=== PATIENT | female | born 1950 | race Caucasian/White ===

== ENCOUNTER 2022-04-21 11:00 | Inpatient (IN) ==
[2022-04-21] MEDS ORDERED: MoRPHine SULFATE 4 MG/ML 1 ML CARP\\VIAL IV STA ×2 (11:31→13:50)
[2022-04-21] MEDS ORDERED: dexAMETHasone**PF** 10 MG/ML VIAL IV ONE (11:31)
--- NOTE | 2022-04-21 13:50 | History & Physical Report ---
Date of Service April 21, 2022 Assessment & Plan (1) Degenerative disc disease: (2) Back pain: Plan: - Admit to med surg - Lumbar spine MRI from 04/21 outpatient records [facility] reviewed: IMPRESSION: 1. New extruded disc centrally at the L2-3 level results in severe thecal sac stenosis, nerve root crowding, and severe bilateral subarticular stenosis. 2. Additional degenerative spondylosis of the mid and lower lumbar spine is similar to the prior study including severe bilateral foraminal narrowing at L5- S1. - She has been set up to see ortho in [place] as outpatient on 04/25, however due to worsening of pain she presented to the ER - Consult ortho spine, Dr. Tamayo - Pain management with tylenol, oxycodone, IV MS for breakthrough pain - bowel regimen with dulcolax and miralax daily while getting narcotic pain medications -Will make n.p.o. at midnight in case of surgical procedure (3) HTN (hypertension): Plan: -May continue losartan 25 mg daily -BP 154/89 at present, likely worse considering her pain level (4) HLD (hyperlipidemia): Plan: -Continue statin (5) Hypothyroid: Plan: -Continue levothyroxine 88 mcg daily, check TSH and Free T4 (6) Stage 3a chronic kidney disease (CKD): Plan: - hx of such, cr/BUN stable, trend with am labs DVT PPx - teds, heparin subcu, hold if plans for surgical procedure tomorrow morning CODE: Full code Dispo: From home, likely to remain in the hospital x 1-2 days History of Present Illness Chief Complaint: Back pain Primary Care Provider: Charlotte Tran MD This is a 72 yo F with PMHx of degnerative disc disease, herniated disc, back pain, HTN, HLD, hypothyroidism, vitamin D deficiency, prediabetes, CKD stage III, and other medical conditions listed below who presents to the ER with worsening back pain. She was scheduled to see outpatient orthopedics in [place] on 04/25 however reports her pain is so severe that she presented to the ER today. She was previously seen in the ER here at [facility] approximately 2 weeks ago where she was given pain medication and was discharged home. She lives at home by herself, and her sister who is present at bedside reports that she has been falling nearly daily. 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 She manages her own medications and did take them today. Most recently she completed a prednisone pack x5 days on Monday and is unsure that it helped with her pain. She has trialed oxycodone and Tylenol but feel t hat they have not relieved her pain either. Currently her pain is rated an 8/10 and is worse with minimal movements. She is able to move her toes and ankles and slightly bend her knees while laying flat in bed. She admits to having severe pain go from her buttocks down the back sides of both of her legs, slightly worse in the right compared to the left. She denies any saddle anesthesia, loss of bowel or bladder dysfunction. Last bowel movement was 2 days ago and reports that she typically goes once within a 7-day and it has been like this for years. Patient had an out patient MRI completed on 04/14 and it was read on 04/17 of the lumbar spine showing L2-3 extruded disc centrally, resulting in severe thecal sac stenosis, nerve root crowding and severe bilateral subarticular stenosis, ad ditionally showing degenerative spondylosis of the mid and lower spine is similar to the previous study with severe bilateral foraminal narrowing of L5- S1. Allergies Allergy/AdvReac Type Severity Reaction Status Date / Time lisinopril Allergy Intermediate Cough Verified 03/08/22 21:43 morphine Allergy Intermediate Rash Verified 03/08/22 21:43 Sulfa (Sulfonamide Allergy Intermediate Nausea Verified 03/08/22 21:43 Antibiotics) Home Medications Medication Instructions Recorded Confirmed Type albuterol sulfate 90 mcg/actuation 2 puff inhalation QID PRN 07/24/18 04/21/22 History aerosol inhaler Shortness Of Breath levothyroxine 88 mcg tablet 88 mcg PO QAM 07/24/18 04/21/22 History trazodone 100 mg tablet 100 mg PO HS PRN Insomnia 11/22/18 04/21/22 History ascorbic acid (vitamin C) 1,000 mg 1,000 mg PO DAILY 04/21/22 04/21/22 History tablet (Vitamin C) aspirin 81 mg tablet,delayed 81 mg PO DAILY 04/21/22 04/21/22 History release (Dyana Low Dose Aspirin) atorvastatin 20 mg tablet 20 mg PO DAILY 04/21/22 04/21/22 History baclofen 20 mg tablet 20 mg PO TID PRN muscle spasms 04/21/22 04/21/22 History cyanocobalamin (vitamin B-12) 500 500 mcg PO DAILY 04/21/22 04/21/22 History mcg tablet (Vitamin B-12) fluoxetine 20 mg capsule 60 mg PO DAILY 04/21/22 04/21/22 History hydroxyzine HCl 25 mg tablet 25 mg PO BID PRN Anxiety 04/21/22 04/21/22 History losartan 25 mg tablet 25 mg PO DAILY 04/21/22 04/21/22 History melatonin 10 mg tablet 10 mg PO DAILY 04/21/22 04/21/22 History solifenacin 5 mg tablet 5 mg PO DAILY 04/21/22 04/21/22 History Past Med/Surg History Medical History Blepharochalasis of both upper eyelids Concussion Degenerative disc disease HLD (hyperlipidemia) HTN (hypertension) Hypothyroid MDD (major depressive disorder) Paroxysmal SVT (supraventricular tachycardia) Prediabetes Stage 3a chronic kidney disease (CKD) Surgical History History of bladder surgery Hx of appendectomy Hx of cholecystectomy Hx of hysterectomy Family History Mother Cancer Diabetes Father Heart disease Brother Diabetes Grandmother (Maternal) Diabetes Grandfather (Maternal) Diabetes Social History Smoking Status: Never smoker Preferred Language: American Communication Ability: Effective Visual Impairment: No Limitations Hearing Ability: Normal Feels Safe at Home: Yes Review of Systems Review of Systems: Constitutional: No fever, sweats or chills Eyes: No diplopia, no worsening or blurred vision ENT: normal hearing, no trouble swallowing Respiratory: No cough, sputum, dyspnea at rest or on exertion Cardiovascular: No chest pain, tightness or palpitations Abdomen: No pain, nausea, vomiting, diarrhea or constipation Musculoskeletal: Back pain as per HPI, otherwise no joint pain, calf pain, swelling Neurologic: + Bilateral leg weakness, + arm bilateral numbness/tingling as per HPI, no bowel or bladder paresthesia, + balance problems, + frequent falls Psychiatric: + Medicated for history of anxiety or depression Skin: No rash or itch Physical Exam Physical Exam: General: awake, alert, no apparent distress, + appears younger than stated age Head: Normocephalic, atraumatic ENT: PERRL, EOMI, no pharyngeal exudate, mucous membranes slightly dry Chest: Clear to auscultation, on room air, no adventitious breath sounds Cardiac: Regular rate and rhythm, no murmur, no JVD, normal peripheral pulses, good capillary refill Abdominal: NABS x 4 quadrants, soft, nondistended, nontender to palpation, no rebound or guarding Extremities: Normal inspection, no peripheral edema or erythema, calfs nontender to palpation Psych: Normal mood and affect Neuro: AAO x 3, strength intact bilaterally and rated 3/5 in lower extremities bilaterally, no motor deficits, speech is clear, no peripheral sensory deficits Results & Data Results & Data ([facility]) Vital Signs (Past 12 Hours) Vital Signs Temp Pulse Pulse Resp BP BP Pulse Ox 04/21/22 11:17 68 18 160/87 H 99 04/21/22 11:05 36.6 C 67 18 149/90 H 99 O2 Del Method 04/21/22 11:17 Room Air 04/21/22 11:05 Room Air Laboratory Results 04/21/22 04/21/22 14:28 12:15 WBC 7.80 RBC 4.43 Hgb 13.5 Hct 40.2 MCV 90.7 MCH 30.5 MCHC 33.6 RDW Std Deviation 43.9 RDW Coeff of Ruel 13.3 Plt Count 222 MPV 8.7 L Immature Gran % (Auto) 0.4 Neut % (Auto) 85.6 Lymph % (Auto) 10.1 [place] % (Auto) 3.1 Eos % (Auto) 0.5 Baso % (Auto) 0.3 Neut # (Auto) 6.68 H Lymph # (Auto) 0.79 L [place] # (Auto) 0.24 Eos # (Auto) 0.04 Baso # (Auto) 0.02 Immature Gran # (Auto) 0.03 H SARS-CoV-2, RNA, NAAT NEGATIVE Code Status & VTE Plan Code Status Full code Supervising Physician Co-Signing Physician Notes Patient is a 72-year-old female with history of degenerative disc disease, hypertension, hypothyroidism and other medical problems presents with worsening lower back pain radiating down bilateral lower extremities since past 4 weeks. Patient has trouble ambulating secondary to the pain. Denies any bowel or bladder incontinence or numbness. Patient admits to be stooping forward significantly to help with the pain. Please review HPI for complete details of presentation. Blood pressure is slightly elevated in ED likely situational secondary to pain. MRI lumbar spine done as outpatient showed new extruded disc centrally at L2-L3 level resulting in severe thecal sac stenosis, nerve root crowding and severe bilateral subarticular stenosis.Blood work reviewed and is within normal limits. On exam patient is moderately built and nourished, no apparent distress, normocephalic atraumatic, EOMI, normal breath sounds, clear to auscultation, S1-S2, no murmur, no pedal edema, abdomen soft, nontender, normal bowel sounds, back:+ Straight leg raising. Alert, awake, oriented, grossly no focal deficits. Patient is admitted for management of sciatica associated with severe disc collapse at L2-L3. Patient received Decadron while in ED. Pain control. Orthopedics consulted. N.p.o. after midnight for possible lumbar decompression fusion surgery. Bowel regimen to prevent constipation. Fall precautions, PT OT when appropriate. I personally reviewed the record. Patient is interviewed and examined at bedside. Patient's care is coordinated with Aisha Hopkins PA-C. Please refer to the documentation above for details of patient's presentation and for discussion of other issues.
[2022-04-21 14:37] LABS: Basophils # (auto) 0.02 K/uL (0-0.2); Basophils % (auto) 0.3 %; Eosinophils # (auto) 0.04 K/uL (0-0.50); Eosinophils % (auto) 0.5 %; Hematocrit (blood only) 40.2 % (34.1-44.9); Hemoglobin 13.5 g/dl (12.0-16.0); Immature Granulocytes # (auto) 0.03 K/uL (0.00-0.02); Immature Granulocytes % (auto) 0.4 %; Lymphocytes # (auto) 0.79 K/uL (1.2-3.4); Lymphocytes % (auto) 10.1 %; Mean Corpuscular Hemoglobin 30.5 pg (25.0-34.0); Mean Corpuscular Hgb Conc 33.6 g/dL (32.0-36.0); Mean Corpuscular Volume 90.7 fL (80.0-100.0); Mean Platelet Volume 8.7 fL (9.4-12.3); Monocytes # (auto) 0.24 K/uL (0.24-0.82); Monocytes % (auto) 3.1 %; Neutrophils # (auto) 6.68 K/uL (1.4-6.5); Neutrophils % (auto) 85.6 %; Platelet Count 222 K/uL (130-400); RDW Coefficient of Variation 13.3 % (11.5-14.5); RDW Standard Deviation 43.9 fL (36.4-46.3); Red Blood Count 4.43 M/uL (3.93-5.22)
--- NOTE | 2022-04-21 14:48 | Emergency Department Note ---
History of Present Illness General Chief complaint: Back Injury/Pain Stated complaint: SEVERE LOWER BACK PAIN Time Seen by Provider: 04/21/22 11:12 History of Present Illness Maximum Pain Intensity: 8 32-year-old female presents to the ED with a chief complaint of low back pain with radiation of the pain into the butt cheeks and down both of her legs. The patient was seen on 04/01/2022 for the same here and had some unremarkable x- rays. She had an MRI at the [facility] facility which showed a significant herniation of the L2-3 level causing severe thecal sac stenosis as well as nerve root crowding and severe bilateral subarticular stenosis. The patient denies any bowel or bladder dysfunction. No weakness in the legs. No abdominal pains. No urinary symptoms. Home Medications Medication Instructions Recorded Confirmed Type albuterol sulfate 90 mcg/actuation 2 puff inhalation QID PRN 07/24/18 04/21/22 History aerosol inhaler Shortness Of Breath levothyroxine 88 mcg tablet 88 mcg PO QAM 07/24/18 04/21/22 History trazodone 100 mg tablet 100 mg PO HS PRN Insomnia 11/22/18 04/21/22 History ascorbic acid (vitamin C) 1,000 mg 1,000 mg PO DAILY 04/21/22 04/21/22 History tablet (Vitamin C) aspirin 81 mg tablet,delayed 81 mg PO DAILY 04/21/22 04/21/22 History release (Dyana Low Dose Aspirin) atorvastatin 20 mg tablet 20 mg PO DAILY 04/21/22 04/21/22 History baclofen 20 mg tablet 20 mg PO TID PRN muscle spasms 04/21/22 04/21/22 History cyanocobalamin (vitamin B-12) 500 500 mcg PO DAILY 04/21/22 04/21/22 History mcg tablet (Vitamin B-12) fluoxetine 20 mg capsule 60 mg PO DAILY 04/21/22 04/21/22 History hydroxyzine HCl 25 mg tablet 25 mg PO BID PRN Anxiety 04/21/22 04/21/22 History losartan 25 mg tablet 25 mg PO DAILY 04/21/22 04/21/22 History melatonin 10 mg tablet 10 mg PO DAILY 04/21/22 04/21/22 History solifenacin 5 mg tablet 5 mg PO DAILY 04/21/22 04/21/22 History Allergies Allergy/AdvReac Type Severity Reaction Status Date / Time lisinopril Allergy Intermediate Cough Verified 03/08/22 21:43 morphine Allergy Intermediate Rash Verified 03/08/22 21:43 Sulfa (Sulfonamide Allergy Intermediate Nausea Verified 03/08/22 21:43 Antibiotics) Past Med/Surg History Medical History Blepharochalasis of both upper eyelids Concussion Degenerative disc disease HLD (hyperlipidemia) HTN (hypertension) Hypothyroid MDD (major depressive disorder) Paroxysmal SVT (supraventricular tachycardia) Prediabetes Stage 3a chronic kidney disease (CKD) Surgical History History of bladder surgery Hx of appendectomy Hx of cholecystectomy Hx of hysterectomy Family History Mother Cancer Diabetes Father Heart disease Brother Diabetes Grandmother (Maternal) Diabetes Grandfather (Maternal) Diabetes Social History Smoking Status: Never smoker Preferred Language: Bengali Communication Ability: Effective Visual Impairment: No Limitations Hearing Ability: Normal Feels Safe at Home: Yes Review of Systems A total of 10 systems reviewed and were otherwise negative Physical Exam Vital Signs Vital Signs - 24 hr 04/21/22 11:05 04/21/22 11:17 04/21/22 14:14 Temperature 36.6 C Temperature Source Temporal Artery Scan Pulse Rate 67 Pulse Rate [Left Finger] 68 63 Pulse Rhythm [Left Finger] Regular Regular Respiratory Rate 18 18 18 Respiratory Effort / Characteristics Non-Labored Non-Labored Respiratory Depth Normal Normal Normal Blood Pressure 149/90 H Blood Pressure [Right Arm] 160/87 H 154/89 H Blood Pressure Mean 109 Blood Pressure Mean [Right Arm] 111 110 Pulse Oximetry 99 99 Oxygen Delivery Method Room Air Room Air Room Air Sepsis Recent Fever Within 48 Hours No Sepsis New/Unexplained Change in Mental Status No Sepsis Action Taken by Nursing No Action Required CONSTITUTIONAL/VITAL SIGNS: Reviewed / noted above. GENERAL: Non-toxic in appearance. INTEGUMENTARY: Warm, dry, and [place]. HEAD: Normocephalic. EYES: without scleral icterus or trauma. ENT/OROPHARYNX: clear and moist. LYMPHADENOPATHY/NECK: Is supple without lymphadenopathy or meningismus. RESPIRATORY: Clear to auscultation bilaterally. No increased work of breathing. CARDIOVASCULAR: Regular rate and rhythm. GI/ABDOMEN: Soft and nontender. No organomegaly or pulsatile mass. EXTREMITIES: Warm and well perfused. Normal lower extremity patellar reflexes. Normal sensation. Positive straight leg raise bilaterally. BACK: No CVA tenderness. NEUROLOGICAL: Intact without focal deficits. PSYCHIATRIC: normal affect. MUSCULOSKELETAL: Normally developed with good muscle tone. TRIAGE NURSING DOCUMENTATION REVIEWED. Course Administered Medications Discontinued Medications Dexamethasone Sodium Phosphate (DexamethasonePf 10 Mg/Ml Vial) 10 mg IV NOW ONE Stop: 04/21/22 11:32 Last Admin: 04/21/22 11:52 Dose: 10 mg Documented By: VAP Morphine Sulfate (Morphine Sulfate 4 Mg/Ml 1 Ml Carp\Vial) 4 mg IV NOW STA Stop: 04/21/22 11:32 Last Admin: 04/21/22 11:52 Dose: 4 mg Documented By: VAP Medical Decision Making Differential Diagnosis Differential considered includes cauda equina syndrome, conus medullaris, spinal cord compression syndrome, peripheral nerve compression, fractures or subluxations, intra-abdominal pathology such as abdominal aortic aneurysm or kidney stones, muscle strain, transverse myelitis, spinal cord injury. Medical Records Attestation: I reviewed the patient's medical records. Home Medications Current Medication List: was personally reviewed by me Laboratory Data Attestation: I reviewed the patient's lab results. Result diagrams: 04/21/22 14:28 04/21/22 14:28 Lab Results 04/21/22 04/21/22 Range/Units 12:15 14:28 WBC 7.80 (4.8-10.8) K/ul RBC 4.43 (3.93-5.22) M/uL Hgb 13.5 (12.0-16.0) g/dl Hct 40.2 (34.1-44.9) % MCV 90.7 (80.0-100.0) fL MCH 30.5 (25.0-34.0) pg MCHC 33.6 (32.0-36.0) g/dL RDW Std Deviation 43.9 (36.4-46.3) fL RDW Coeff of Ruel 13.3 (11.5-14.5) % Plt Count 222 (130-400) K/uL MPV 8.7 L (9.4-12.3) fL Immature Gran % (Auto) 0.4 % Neut % (Auto) 85.6 % Lymph % (Auto) 10.1 % [place] % (Auto) 3.1 % Eos % (Auto) 0.5 % Baso % (Auto) 0.3 % Neut # (Auto) 6.68 H (1.4-6.5) K/uL Lymph # (Auto) 0.79 L (1.2-3.4) K/uL [place] # (Auto) 0.24 (0.24-0.82) K/uL Eos # (Auto) 0.04 (0-0.50) K/uL Baso # (Auto) 0.02 (0-0.2) K/uL Immature Gran # (Auto) 0.03 H (0.00-0.02) K/uL SARS-CoV-2, RNA, NAAT NEGATIVE (NEGATIVE) Imaging Data Radiologist's Impression: MRI of the spine dated 04/17/2022: No extruded disc centrally at the L2-3 level resulting in severe thecal sac stenosis, nerve root crowding, and severe bilateral subarticular stenosis MDM Narrative 72-year-old female with low back pain and a severe extruded central disc in the L2-3 level causing her symptoms. Because of the patient's symptoms she is unable to do activity at home and having severe pain. The patient was treated with morphine x2 in the ED. She was also given IV Decadron. She will be seen by the hospitalist. I did speak with Dr. Tamayo as well about the patient. He will look into the MRI and consult with the patient. Impression & Plan Acute herniated disc, Sciatica associated with disorder of lumbar spine Discharge Plan Visit Data Chief Complaint: Back Injury/Pain Stated Complaint: SEVERE LOWER BACK PAIN ED Provider: Joshua Waller Discharge Problem: Acute herniated disc, Sciatica associated with disorder of lumbar spine Patient Disposition: Being Evaluated by Hospitalist Forms Stand Alone Forms: My [facility] Prescriptions Prescriptions: No Action trazodone 100 mg Tablet 100 mg PO HS PRN (Reason: Insomnia) levothyroxine 88 mcg tablet 88 mcg PO QAM albuterol sulfate [ProAir HFA] 90 mcg/actuation HFA aerosol inhaler 2 puff Inhalation QID PRN (Reason: Shortness Of Breath) ondansetron 4 mg tablet,disintegrating 4 mg PO Q6 PRN (Reason: nausea and vomiting) Qty: 14 0RF ascorbic acid (vitamin C) [Vitamin C] 1,000 mg tablet 1,000 mg PO DAILY atorvastatin 20 mg tablet 20 mg PO DAILY aspirin [Dyana Low Dose Aspirin] 81 mg tablet,delayed release (DR/EC) 81 mg PO DAILY baclofen 20 mg tablet 20 mg PO TID PRN (Reason: muscle spasms) cyanocobalamin (vitamin B-12) [Vitamin B-12] 500 mcg tablet 500 mcg PO DAILY losartan 25 mg tablet 25 mg PO DAILY hydroxyzine HCl 25 mg tablet 25 mg PO BID PRN (Reason: Anxiety) fluoxetine 20 mg capsule 60 mg PO DAILY solifenacin 5 mg tablet 5 mg PO DAILY melatonin 10 mg tablet 10 mg PO DAILY Referrals Referrals: Charlotte Tran MD [Primary Care Provider] -
[2022-04-21 14:57] LABS: Albumin Globulin Ratio 1.1 (0.9-2); Albumin Level 3.4 gm/dl (3.4-5.0); BUN Creatinine Ratio 19.4 (10-20); Bilirubin,Total 0.9 mg/dl (0.2-1.0); Calcium 8.5 mg/dl (8.5-10.1); Creatinine Clr Calc Pharmacy 61.7 ml/min; Est GFR (African American) 95.6 ml/min; Est GFR (Non-African American) 82.5 ml/min; Total Protein 6.4 gm/dl (6.0-8.3)
--- NOTE | 2022-04-21 15:47 | Orthopedic Consultation ---
Date of Consultation April 21, 2022 Assessment & Plan (1) Sciatica associated with disorder of lumbar spine: MRI of the lumbar spine dated 04/14/2022 performed at [facility] is available for review. It demonstrates severe disc base collapse with bilateral neuroforaminal disease L5-S1 there is evidence of a massive disc herniation L2- L3 with both caudal and cephalad migration. There is severe thecal displacement on axillary views at this level. There is facet perjury with subarticular stenosis at the L3-L4 L4-L5 L5-S1 levels as well. Assessment massive discrimination with significant canal compromise L2-L3. Plan at this time the patient is having steady decline in neurologic function and I am recommending urgent lumbar decompression and fusion L2-L3. She will require aggressive facetectomies which will create iatrogenic instability therefore I would recommend if surgical stabilization by way of fusion. Risk benefits pros cons alternatives were outlined in detail. Patient understands agrees. She will remain n.p.o. after midnight and we will plan for surgery tomorrow. History of Present Illness Reason for Consultation: Severe back and bilateral leg pain with weakness Attending Physician: This is a very pleasant 72-year-old female that states she had a marked decline in status approximately 4 weeks ago that has been progressive in nature. She describes pain rating into the buttocks anterior posterior thigh and below the knees. Any activity exacerbates her symptoms. She is unable to walk any distance. When she does so she has to stoop forward significantly. She states that coughing or sneezing shoots pain down both legs. She denies any new changes in bowel or bladder function. She does have some previous urinary issues. She presents emergency room with marked decline in status and inability to ambulate today. She has an MRI that was performed at [facility] on 04/1122. Allergies Allergy/AdvReac Type Severity Reaction Status Date / Time lisinopril Allergy Intermediate Cough Verified 03/08/22 21:43 morphine Allergy Intermediate Rash Verified 03/08/22 21:43 Sulfa (Sulfonamide Allergy Intermediate Nausea Verified 03/08/22 21:43 Antibiotics) Home Medications Medication Instructions Recorded Confirmed Type albuterol sulfate 90 mcg/actuation 2 puff inhalation QID PRN 07/24/18 04/21/22 History aerosol inhaler Shortness Of Breath levothyroxine 88 mcg tablet 88 mcg PO QAM 07/24/18 04/21/22 History trazodone 100 mg tablet 100 mg PO HS PRN Insomnia 11/22/18 04/21/22 History ascorbic acid (vitamin C) 1,000 mg 1,000 mg PO DAILY 04/21/22 04/21/22 History tablet (Vitamin C) aspirin 81 mg tablet,delayed 81 mg PO DAILY 04/21/22 04/21/22 History release (Dyana Low Dose Aspirin) atorvastatin 20 mg tablet 20 mg PO DAILY 04/21/22 04/21/22 History baclofen 20 mg tablet 20 mg PO TID PRN muscle spasms 04/21/22 04/21/22 History cyanocobalamin (vitamin B-12) 500 500 mcg PO DAILY 04/21/22 04/21/22 History mcg tablet (Vitamin B-12) fluoxetine 20 mg capsule 60 mg PO DAILY 04/21/22 04/21/22 History hydroxyzine HCl 25 mg tablet 25 mg PO BID PRN Anxiety 04/21/22 04/21/22 History losartan 25 mg tablet 25 mg PO DAILY 04/21/22 04/21/22 History melatonin 10 mg tablet 10 mg PO DAILY 04/21/22 04/21/22 History solifenacin 5 mg tablet 5 mg PO DAILY 04/21/22 04/21/22 History Patient History Medical History Blepharochalasis of both upper eyelids Concussion Degenerative disc disease HLD (hyperlipidemia) HTN (hypertension) Hypothyroid MDD (major depressive disorder) Paroxysmal SVT (supraventricular tachycardia) Prediabetes Stage 3a chronic kidney disease (CKD) Surgical History History of bladder surgery Hx of appendectomy Hx of cholecystectomy Hx of hysterectomy Family History Mother Cancer Diabetes Father Heart disease Brother Diabetes Grandmother (Maternal) Diabetes Grandfather (Maternal) Diabetes Social History Smoking Status: Never smoker Preferred Language: Malay Communication Ability: Effective Visual Impairment: No Limitations Hearing Ability: Normal Feels Safe at Home: Yes Physical Exam Physical Exam: On exam the patient is supine in bed. Her [id number] is at the bedside. She is alert and oriented. She exhibits 4+/5 bilateral plantar flexion dorsiflexion quadriceps but is in significant distress with any straight leg raising. She is unable to lift her legs off the bed without severe pain. Sensory appears to be symmetric and intact deep tendon reflexes are diminished. Results & Data ([facility]) Vital Signs (Past 12 Hours) Vital Signs Temp Pulse Pulse Resp BP BP Pulse Ox 04/21/22 14:14 63 18 154/89 H 04/21/22 11:17 68 18 160/87 H 99 04/21/22 11:05 36.6 C 67 18 149/90 H 99 O2 Del Method 04/21/22 14:14 Room Air 04/21/22 11:17 Room Air 04/21/22 11:05 Room Air
[2022-04-21] MEDS ORDERED: MoRPHine SULFATE 4 MG/ML 1 ML CARP\\VIAL IV PRN (18:45)
[2022-04-21] MEDS ORDERED: MoRPHine SULFATE 2 MG/ML CARP IV PRN (18:45)
[2022-04-21] MEDS ORDERED: MELATONIN 3 MG TAB PO PRN (19:35)
[2022-04-21] MEDS: VESICARE~ORDER AWAITING ACTION SCH ×2 (19:57→23:03)
[2022-04-21] MEDS ORDERED: ACETAMINOPHEN 500 MG TAB ONE (20:55)
[2022-04-21] MEDS: oxyCODONE HCL IR 5 MG TAB (IMMEDIATE RELEASE) PO PRN (21:23)
[2022-04-21] MEDS: traZODone HCL 100 MG TAB PO PRN (21:23)
[2022-04-21] MEDS: ACETAMINOPHEN 500 MG TAB PO SCH (21:24)
[2022-04-22] MEDS: LEVOTHYROXINE SODIUM 88 MCG TABLET PO SCH (06:05)
[2022-04-22] MEDS: ACETAMINOPHEN 500 MG TAB PO SCH ×3 (06:05→22:37)
[2022-04-22] MEDS ORDERED: NEOSTIGMINE METHYLSULFATE 1 MG/ML 10ML VIAL ONE (07:56)
[2022-04-22] MEDS ORDERED: ROCURONIUM BROMIDE 10 MG/ML 5 ML VIAL IV ONE ×2 (07:56→10:12)
[2022-04-22] MEDS ORDERED: fentaNYL citrate 100 MCG/2 ML VIAL ONE ×2 (07:56→11:06)
[2022-04-22] MEDS ORDERED: MIDAZOLAM HCL 1 MG/ML 2ML VIAL ONE (07:56)
[2022-04-22] MEDS ORDERED: GLYCOPYRROLATE 0.2 MG/ML VIAL ONE (07:56)
[2022-04-22] MEDS ORDERED: LIDOCAINE 2% MPF LOCAL 5 ML VIAL INFIL ONE (07:56)
[2022-04-22] MEDS ORDERED: PROPOFOL IV EMULSION 10 MG/ML 20 ML VIAL IV ONE (07:56)
--- NOTE | 2022-04-22 07:56 | Anesthesiology Consultation ---
Date of Service April 22, 2022 History Surgery Operation Date: 04/22/22 08:00 Proposed Procedures p Decompression Fusion L-2-L-3 - Wale Tamayo, Height/Weight Height: 5 ft Weight: 75.2 kg Allergies Allergy/AdvReac Type Severity Reaction Status Date / Time lisinopril Allergy Intermediate Cough Verified 03/08/22 21:43 morphine Allergy Intermediate Rash Verified 03/08/22 21:43 Sulfa (Sulfonamide Allergy Intermediate Nausea Verified 03/08/22 21:43 Antibiotics) Medications Home Medications Medication Instructions Recorded Confirmed Last Taken albuterol sulfate 90 mcg/actuation 2 puff inhalation QID PRN 07/24/18 04/21/22 07/24/18 aerosol inhaler Shortness Of Breath levothyroxine 88 mcg tablet 88 mcg PO QAM 07/24/18 04/21/22 04/21/22 trazodone 100 mg tablet 100 mg PO HS PRN Insomnia 11/22/18 04/21/22 04/20/22 ascorbic acid (vitamin C) 1,000 mg 1,000 mg PO DAILY 04/21/22 04/21/22 04/21/22 tablet (Vitamin C) aspirin 81 mg tablet,delayed 81 mg PO DAILY 04/21/22 04/21/22 04/21/22 release (Dyana Low Dose Aspirin) atorvastatin 20 mg tablet 20 mg PO DAILY 04/21/22 04/21/22 04/21/22 baclofen 20 mg tablet 20 mg PO TID PRN muscle spasms 04/21/22 04/21/22 04/21/22 cyanocobalamin (vitamin B-12) 500 500 mcg PO DAILY 04/21/22 04/21/22 04/21/22 mcg tablet (Vitamin B-12) fluoxetine 20 mg capsule 60 mg PO DAILY 04/21/22 04/21/22 04/21/22 hydroxyzine HCl 25 mg tablet 25 mg PO BID PRN Anxiety 04/21/22 04/21/22 04/20/22 losartan 25 mg tablet 25 mg PO DAILY 04/21/22 04/21/22 04/21/22 melatonin 10 mg tablet 10 mg PO DAILY 04/21/22 04/21/22 04/20/22 solifenacin 5 mg tablet 5 mg PO DAILY 04/21/22 04/21/22 04/21/22 Active Medications Generic Name Dose Route Start Last Admin Trade Name Freq PRN Reason Stop Dose Admin Acetaminophen 1,000 mg 04/21/22 22:00 04/22/22 06:05 Acetaminophen 500 Mg Tab PO 05/21/22 21:59 1,000 mg Q8H SALO Administration Levothyroxine Sodium 88 mcg 04/22/22 06:30 04/22/22 06:05 Levothyroxine Sodium 88 Mcg Tablet PO 05/22/22 06:29 88 mcg DAILYBB SALO Administration Miscellaneous 1 each 04/21/22 19:45 04/21/22 23:03 Vesicare~Order Awaiting Action N/A 05/21/22 19:44 Not Given QS SALO Morphine Sulfate 2 mg 04/21/22 18:45 04/21/22 19:49 Morphine Sulfate 2 Mg/Ml Carp IV 05/05/22 18:44 2 mg Q4H PRN Administration Breakthrough Pain Morphine Sulfate 4 mg 04/21/22 18:45 04/22/22 04:41 Morphine Sulfate 4 Mg/Ml 1 Ml Carp\Vial IV 05/05/22 18:44 4 mg Q4H PRN Administration Severe Pain Oxycodone HCl 5 mg 04/21/22 18:45 04/21/22 21:23 Oxycodone Hcl Ir 5 Mg Tab (Immediate Release) PO 05/05/22 18:44 5 mg Q6H PRN Administration Pain Trazodone HCl 100 mg 04/21/22 18:45 04/21/22 21:23 Trazodone Hcl 100 Mg Tab PO 05/21/22 18:44 100 mg HS PRN Administration Insomnia Past Medical History Medical History Blepharochalasis of both upper eyelids Concussion Degenerative disc disease HLD (hyperlipidemia) HTN (hypertension) Hypothyroid MDD (major depressive disorder) Paroxysmal SVT (supraventricular tachycardia) Prediabetes Stage 3a chronic kidney disease (CKD) Exercise / Class Metabolic Activity II 4-5 Yardwork/Stairs/Walk up hill Past Family History Family History Mother Cancer Diabetes Father Heart disease Brother Diabetes Grandmother (Maternal) Diabetes Grandfather (Maternal) Diabetes Past Surgical History Surgical History History of bladder surgery Hx of appendectomy Hx of cholecystectomy Hx of hysterectomy Past Anesthesia History No Hx of Anesthesia Complications and No Family Hx of Anesthesia Complications History of PONV No Hx of PONV and No Hx of Motion Sickness Social History Smoking Status: Never smoker Hx Alcohol Use: No Hx Substance Use: No Physical Exam Vital Signs Last Vital Signs Temp 36.7 C 04/22/22 07:19 Pulse 58 L 04/22/22 07:19 Resp 16 04/22/22 07:19 BP 117/66 04/22/22 07:19 Pulse Ox 91 04/22/22 07:19 O2 Del Method 04/22/22 07:19 Testing Laboratory Results 04/21/22 14:28 04/21/22 14:28
[2022-04-22] MEDS: VESICARE~ORDER AWAITING ACTION SCH ×2 (08:01→20:10)
[2022-04-22] MEDS ORDERED: ceFAZolin 330 MG/ML 1 GM VIAL ONE ×2 (08:09→10:51)
[2022-04-22] MEDS ORDERED: BUPIVACAINE/EPINEPHRINE 0.25% 1:200,000 30 ML VIAL ONE (08:09)
--- NOTE | 2022-04-22 08:11 | History & Physical Bridge Note ---
Date of Service April 22, 2022 History & Physical Bridge Note I have examined the patient, reviewed the History & Physical and in the interval since the performance of the History & Physical I have noted the following changes of clinical significance: no changes noted Urgent lumbar decompression fusion L2-L3
[2022-04-22 08:25] LABS: Hematocrit (blood only) 40.1 % (34.1-44.9); Hemoglobin 13.4 g/dl (12.0-16.0); Mean Corpuscular Hemoglobin 30.1 pg (25.0-34.0); Mean Corpuscular Hgb Conc 33.4 g/dL (32.0-36.0); Mean Corpuscular Volume 90.1 fL (80.0-100.0); Mean Platelet Volume 8.9 fL (9.4-12.3); Platelet Count 234 K/uL (130-400); RDW Standard Deviation 42.6 fL (36.4-46.3); Red Blood Count 4.45 M/uL (3.93-5.22); White Blood Count 8.36 K/ul (4.8-10.8)
[2022-04-22 08:51] LABS: BUN Creatinine Ratio 27.3 (10-20); Calcium 8.6 mg/dl (8.5-10.1); Creatinine Clr Calc Pharmacy 67.7 ml/min; Est GFR (African American) 100.9 ml/min; Magnesium 1.9 mg/dl (1.7-2.4); Potassium 4.2 mmol/L (3.5-5.1)
[2022-04-22] MEDS ORDERED: ceFAZolin 1000MG 1,000 MG/7.5 ML SYR IV ONE (09:28)
[2022-04-22] MEDS ORDERED: FLOSEAL HEMOSTATIC MATRIX 10ML TOP ONE (09:40)
[2022-04-22] MEDS ORDERED: PHENYLEPHRINE HCL 10 MG/ML VIAL ONE (10:08)
[2022-04-22] MEDS ORDERED: ePHEDrine sulfate 50 MG/ML AMP ONE (10:08)
[2022-04-22] MEDS ORDERED: SODIUM CHLORIDE 0.9% INJ 10 ML VIAL ONE (10:08)
--- NOTE | 2022-04-22 10:25 | Operative Report ---
Post Operative Report Pre & Post Diagnosis Operation Date: 04/22/22 08:00 Pre-Op Diagnosis: Number discoloration with severe spinal stenosis Post-Op Diagnosis: Same I identified the patient and participated in the time-out.: Yes Procedure Operation Date: 04/22/22 08:00 Actual Procedures #1 lumbar decompression with bilateral medial facetectomies and foraminotomies L2-L3. #2 posterior spinal fusion L2-L3. #3 placed posterior instrumentation L2-3. #4 interbody fusion L2-L3. #5 placement of Spira 13 x 26 mm cage at L2- L3. #6 placement locally harvested morselized autograft in the posterior gutters. #7 placement of I factor V V toss in the interbody space and posterior lateral gutters. Surgeon Wale Tamayo, [employer] And [employer]ing Worker Onofre Diaz Estimated Blood Loss 75 Findings Consistent with Post-Op Diagnosis Specimens None Indications This is a 72-year-old female who presents with severe neurologic decline and inability to ambulate secondary to massive disc herniation with severe canal stenosis at L to L3. Subsequently she is here for urgent decompression fusion. Description of Procedure Patient was met with identified informed consent obtained. Patient was then taken to the operative suite underwent an patient placed in a prone position the [place] table top Gall[place] frame. All bony prominences well-padded eyes inspected to ensure no external pressure placed upon them. This point the lumbar spine was prepped and draped in a sterile fashion. Sharp dissection with the assistance of Bovie cartilage from down to and exposing the lamina and transverse processes of L2-L3 bilaterally. From caudal to cephalad fashion complete laminectomy of L2 was performed including bilateral medial facetectomies and foraminotomies to adequately expose the canal and allow me to retrieve the massive free fragments of disc material that migrated cephalad and caudally in the canal. After complete decompression pedicle screws were placed in L2-L3 bilaterally with assistance of fluoroscopy and the proper sized brandon placed. By way of a transfemoral approach and left complete discectomy was performed endplates curetted to subcortically bone and a 13 x 26 mm spiral cage filled with I factor tapped in position. The rods were then compressed locked into final position bilaterally. The transverse processes of L2-L3 burred to subcortical bleeding bone. I factor combined with V toss and locally harvested morselized autograft was placed in the posterior gutters. 15 round HARJIT drain inserted. The incision was then closed with 1 Vicryl in the fascia 2-0 Vicryl subcutaneously and 4 Monocryl for final skin closure. Steri-Strip sterile dressings placed. Patient will continue PACU stable condition. Please note spinal cord monitoring was utilized at the procedure no changes noted. Lastly Onofre Diaz was present at the entire surgery involved the patient pos itioning complex portions of the surgery and final skin closure. I attest to the content of the Intraoperative Record and any orders documented therein. Any exceptions are noted below.
--- NOTE | 2022-04-22 10:56 | Fluoroscopy Report ---
FL lumbar spine 2-3V CLINICAL HISTORY: L2-3 DFI TECHNIQUE: 2 views were obtained with the C-arm in the OR with the above procedure. Total fluoroscopy time was 19.5 seconds. Total skin dose was 15.74 mGy. Comparison: None available at the time of this dictation. FINDINGS/IMPRESSION: Intraoperative images were obtained of L2-L3 decompression and fusion. Please correlate with intraoperative fluoroscopy and operative report. ACT 112: Negative or not required by law. Electronically signed by: Brandon Serrano M.D. 04/22/2022 10:55 AM
[2022-04-22] MEDS ORDERED: ONDANSETRON INJ 2 MG/ML 2 ML VIAL IV PRN ×2 (11:03→11:48)
[2022-04-22] MEDS ORDERED: ATROPINE SULFATE 0.1 MG/ML 10ML SYR IV PRN ×5 (11:03→14:57)
[2022-04-22] MEDS ORDERED: ePHEDrine sulfate 50 MG/ML AMP IV PRN ×4 (11:03→14:57)
[2022-04-22] MEDS: fentaNYL citrate 100 MCG/2 ML VIAL IV PRN ×2 (11:07→11:12)
[2022-04-22] MEDS ORDERED: HYDROmorphone INJ 2 MG/ML SYR/VIAL ONE (11:21)
[2022-04-22] MEDS: HYDROmorphone INJ 2 MG/ML SYR/VIAL IV PRN ×10 (11:21→12:39)
[2022-04-22] MEDS ORDERED: HYDROmorphone INJ 1 MG/ML SYRINGE ONE (11:46)
[2022-04-22] MEDS ORDERED: MAGNESIUM SULFATE / D5W 1 GM/100 ML BAG IV ONE (11:48)
[2022-04-22] MEDS ORDERED: DEXAMETHASONE SOD INJ 4 MG/ML VIAL IV PRN (11:48)
[2022-04-22] MEDS ORDERED: CLONIDINE HCL 1000 MCG/10 ML IV ONE (11:55)
[2022-04-22] MEDS ORDERED: HYDROmorphone INJ 2 MG/ML SYR/VIAL IV PRN ×2 (12:16→13:23)
[2022-04-22] MEDS ORDERED: CLONIDINE HCL IV ONE (12:45)
--- NOTE | 2022-04-22 13:29 | Anesthesiology Progress Note ---
Date of Service April 22, 2022 Anesthesia Post Procedure Vital Signs Vital Signs: Temp Pulse Pulse Pulse Resp BP BP 04/22/22 13:25 59 L 14 89/49 L 04/22/22 13:15 62 16 105/56 L 04/22/22 13:05 59 L 18 97/59 L 04/22/22 12:55 67 19 109/63 04/22/22 12:45 65 20 107/65 04/22/22 12:35 61 15 100/51 L 04/22/22 12:25 65 18 95/72 L 04/22/22 12:15 70 17 92/58 L 04/22/22 12:05 69 14 101/62 04/22/22 11:55 64 16 106/74 04/22/22 11:45 67 13 121/64 04/22/22 11:35 73 12 120/85 04/22/22 11:25 73 12 119/61 04/22/22 11:15 74 14 111/54 L 04/22/22 10:55 85 17 120/58 L 04/22/22 11:05 82 14 134/63 04/22/22 10:46 36.2 C L 93 H 12 137/59 L 04/22/22 08:08 37.1 C 62 20 04/22/22 07:19 36.7 C 58 L 16 117/66 04/21/22 23:04 36.3 C L 63 16 04/21/22 18:49 36.5 C 62 17 04/21/22 17:54 63 18 141/86 H 04/21/22 17:49 63 18 04/21/22 16:10 60 18 04/21/22 14:14 63 18 BP Pulse Ox O2 Del Method O2 Flow Rate 04/22/22 13:25 93 Nasal Cannula 2 04/22/22 13:15 97 Nasal Cannula 2 04/22/22 13:05 97 Nasal Cannula 2 04/22/22 12:55 98 Nasal Cannula 2 04/22/22 12:45 98 Nasal Cannula 2 04/22/22 12:35 99 Nasal Cannula 2 04/22/22 12:25 99 Nasal Cannula 2 04/22/22 12:15 100 Nasal Cannula 2 04/22/22 12:05 99 Nasal Cannula 2 04/22/22 11:55 99 Nasal Cannula 2 04/22/22 11:45 99 Nasal Cannula 2 04/22/22 11:35 97 Nasal Cannula 2 04/22/22 11:25 97 Nasal Cannula 2 04/22/22 11:15 93 Room Air 04/22/22 10:55 99 Oxymask 6 04/22/22 11:05 97 Oxymask 6 04/22/22 10:46 98 Oxymask 6 04/22/22 08:08 121/71 96 Room Air 04/22/22 07:19 91 Room Air 04/21/22 23:04 99/62 L 93 Room Air 04/21/22 18:49 167/90 H 97 Room Air 04/21/22 17:54 94 Room Air 04/21/22 17:49 141/86 H 94 Room Air 04/21/22 16:10 160/80 H Room Air 04/21/22 14:14 154/89 H Room Air Pain Intensity Right Buttock: Pain Intensity: 4 Back: Pain Intensity: 7 Transfer of Care Handoff Completed per policy Notes Mental Status: alert / awake / arousable and participated in evaluation Patient Amnestic to Procedure: Yes Nausea / Vomiting: adequately controlled Pain: adequately controlled Airway Patency, RR, SpO2: stable & adequate BP & HR: stable & adequate Hydration State: stable & adequate Anesthetic Complications: no major complications apparent and Pt Satisfied with anesthetic care Notes: Pt has required significant opioids along with clonidine and magnesium Pain somewhat improved pain now 6-7/10 but appears more comfortable. Will send to floor for IV and/or POs
[2022-04-22] MEDS: ePHEDrine sulfate 50 MG/ML AMP IV PRN ×4 (14:23→14:50)
[2022-04-22] MEDS ORDERED: PHENYLEPHRINE 100MCG/ML 5ML SYR ONE (15:02)
[2022-04-22] MEDS: PHENYLEPHRINE 100MCG/ML 5ML SYR IV PRN ×3 (15:02→16:15)
[2022-04-22] MEDS: ALBUMIN 25% 12.5 GM/50 ML VIAL IV SCH ×2 (15:43→15:54)
--- NOTE | 2022-04-22 16:34 | Hospitalist Progress Note ---
Date of Service April 22, 2022 Assessment & Plan (1) Degenerative disc disease: (2) Back pain: Plan: This is a 72 yo F with PMHx of degnerative disc disease, herniated disc, back pain, HTN, HLD, hypothyroidism, vitamin D deficiency, prediabetes, CKD stage III, and other medical conditions listed below who presents to the ER with worsening back pain. POD#0 s/p lumbar decompression with bilateral medial facetectomies and foraminotomies L2-L3, posterior spinal fusion L2-L3. #3 placed posterior instrumentation L2-3 and interbody fusion L2-L3 In PACU postoperatively for management of hypotension, pain Per ortho for pain control, wound care, anticoagulation and activities Monitor H&H (EBL 75ml, hgb 13.4, continue incentive spirometry, PT/OT when appropriate) (3) Hypotension: Plan: Lumbar discShe is a status post patient and fusion L2-L3 She received total of 5.5 mg of Dilaudid and 100 mcg of IV clonidine per operatively Blood pressure was noted to be around systolic 80s following the procedure in PACU She received a total of 4 L of normal saline with improvement of blood pressure to around 100 She was saturating normally on room air but with the activity and movement the saturation was going down She will continue to have normal saline at a rate of 100 cc an hour and monitor for fluid overload She will need to be transferred to PCU for close monitoring at least for tonight (4) HTN (hypertension): Plan: Hypotensive post-operatively. Hold losartan for now (5) HLD (hyperlipidemia): Plan: Continue statin (6) Hypothyroid: Plan: Continue levothyroxine (7) Stage 3a chronic kidney disease (CKD): Plan: Stable. Continue to monitor with daily BMP CODE: Full code Dispo: Per primary service Patient seen in collaboration with Dr. Avelar. Admission and Anticipated Discharge Date Admission Date: April 21, 2022 Subjective 04/22/2022 The patient was seen and examined in PACU She is a status post L2-3 decompression and fusion and noted to have significant hypotension following the surgery She remained mentally clear and denies any symptoms except weakness BP improving after IV fluids. Has received almost 4 L. Most recent BP in PACU 123/58 Patient is comfortable with minimal surgical site pain. Denies any fever, chills, headache, chest pain, shortness of breath, nausea, vomiting, abdominal pain, dysuria, diarrhea constipation. Review of Systems Review of Systems: At least ten systems reviewed and negative except as noted in the HPI. Physical Exam Physical Exam: Lying in bed comfortably Constitutional: + ill appearing and average body habitus Eyes: PERRL, conjunctivae normal, anicteric sclerae ENMT: external ear and nose normal, oropharynx normal Neck: trachea midline, no thyromegaly Respiratory: no respiratory distress Auscultation: lungs clear to auscultation bilaterally; no crackles Cardiovascular: Rate/Rhythm: regular rate and regular rhythm; not tachycardic Heart Sounds: normal S1 and normal S2; no murmur Gastrointestinal (Abdomen): Inspection/Auscultation: normal bowel sounds; abdomen not distended Percussion/Palpation: abdomen soft; abdomen nontender Musculoskeletal: No acute arthritis in any joint Neurologic: Alert, awake and oriented x3. Generally weak and lethargic Results & Data Results & Data ([facility]) Vital Signs (Past 12 Hours) Vital Signs Temp Pulse Pulse Resp BP BP Pulse Ox 04/22/22 16:25 74 14 96/50 L 95 04/22/22 16:15 71 14 89/49 L 94 04/22/22 16:05 71 14 89/46 L 94 04/22/22 15:55 37.2 C 70 14 80/44 L 92 04/22/22 15:45 69 14 85/47 L 92 04/22/22 15:35 68 14 83/46 L 93 04/22/22 15:25 72 15 87/49 L 92 04/22/22 15:20 70 15 104/57 L 92 04/22/22 15:15 68 12 88/47 L 95 04/22/22 15:05 72 13 90/48 L 93 04/22/22 14:55 71 16 96/49 L 98 04/22/22 14:45 72 18 91/48 L 95 04/22/22 14:40 68 15 87/45 L 92 04/22/22 14:20 79/47 L 04/22/22 14:35 69 12 83/45 L 95 04/22/22 14:30 71 15 91/47 L 97 04/22/22 14:25 37.2 C 67 21 87/47 L 94 04/22/22 14:15 65 16 81/44 L 92 04/22/22 14:05 65 13 82/45 L 98 04/22/22 13:55 64 16 92/47 L 95 04/22/22 13:45 65 17 90/45 L 94 04/22/22 13:35 61 15 84/43 L 92 04/22/22 13:25 59 L 14 89/49 L 93 04/22/22 13:15 62 16 105/56 L 97 04/22/22 13:05 59 L 18 97/59 L 97 04/22/22 12:55 67 19 109/63 98 04/22/22 12:45 65 20 107/65 98 04/22/22 12:35 61 15 100/51 L 99 04/22/22 12:25 65 18 95/72 L 99 04/22/22 12:15 70 17 92/58 L 100 04/22/22 12:05 69 14 101/62 99 04/22/22 11:55 64 16 106/74 99 04/22/22 11:45 67 13 121/64 99 04/22/22 11:35 73 12 120/85 97 04/22/22 11:25 73 12 119/61 97 04/22/22 11:15 74 14 111/54 L 93 04/22/22 10:55 85 17 120/58 L 99 04/22/22 11:05 82 14 134/63 97 04/22/22 10:46 36.2 C L 93 H 12 137/59 L 98 04/22/22 08:08 37.1 C 62 20 121/71 96 04/22/22 07:19 36.7 C 58 L 16 117/66 91 O2 Del Method O2 Flow Rate 04/22/22 16:25 Nasal Cannula 4 04/22/22 16:15 Nasal Cannula 4 04/22/22 16:05 Nasal Cannula 4 04/22/22 15:55 Nasal Cannula 4 04/22/22 15:45 Nasal Cannula 4 04/22/22 15:35 Nasal Cannula 4 04/22/22 15:25 Nasal Cannula 4 04/22/22 15:20 Nasal Cannula 4 04/22/22 15:15 Nasal Cannula 4 04/22/22 15:05 Nasal Cannula 4 04/22/22 14:55 Nasal Cannula 4 04/22/22 14:45 Nasal Cannula 4 04/22/22 14:40 Nasal Cannula 4 04/22/22 14:20 04/22/22 14:35 Nasal Cannula 4 04/22/22 14:30 Nasal Cannula 4 04/22/22 14:25 Nasal Cannula 4 04/22/22 14:15 Nasal Cannula 4 04/22/22 14:05 Nasal Cannula 4 04/22/22 13:55 Nasal Cannula 2 04/22/22 13:45 Nasal Cannula 2 04/22/22 13:35 Nasal Cannula 2 04/22/22 13:25 Nasal Cannula 2 04/22/22 13:15 Nasal Cannula 2 04/22/22 13:05 Nasal Cannula 2 04/22/22 12:55 Nasal Cannula 2 04/22/22 12:45 Nasal Cannula 2 04/22/22 12:35 Nasal Cannula 2 04/22/22 12:25 Nasal Cannula 2 04/22/22 12:15 Nasal Cannula 2 04/22/22 12:05 Nasal Cannula 2 04/22/22 11:55 Nasal Cannula 2 04/22/22 11:45 Nasal Cannula 2 04/22/22 11:35 Nasal Cannula 2 04/22/22 11:25 Nasal Cannula 2 04/22/22 11:15 Room Air 04/22/22 10:55 Oxymask 6 04/22/22 11:05 Oxymask 6 04/22/22 10:46 Oxymask 6 04/22/22 08:08 Room Air 04/22/22 07:19 Room Air Laboratory Results Short CBC 04/22/22 Range/Units 07:54 WBC 8.36 (4.8-10.8) K/ul Hgb 13.4 (12.0-16.0) g/dl Hct 40.1 (34.1-44.9) % Plt Count 234 (130-400) K/uL BMP 04/22/22 07:54 Sodium 136 Potassium 4.2 Chloride 104 Carbon Dioxide 27 BUN 18 Creatinine 0.66 Glucose 136 H Calcium 8.6 Diagnostic Findings Lumbar Spine X-Ray 04/22/22 00:00 FL lumbar spine 2-3V CLINICAL HISTORY: L2-3 DFI TECHNIQUE: 2 views were obtained with the C-arm in the OR with the above procedure. Total fluoroscopy time was 19.5 seconds. Total skin dose was 15.74 mGy. Comparison: None available at the time of this dictation. FINDINGS/IMPRESSION: Intraoperative images were obtained of L2-L3 decompression and fusion. Please correlate with intraoperative fluoroscopy and operative report. ACT 112: Negative or not required by law. Electronically signed by: Brandon Serrano M.D. 04/22/2022 10:55 AM Medications Administered Current Inpatient Medications Acetaminophen (Acetaminophen 500 Mg Tab) 1,000 mg PO Q8H SALO Stop: 05/21/22 21:59 Last Admin: 04/22/22 06:05 Dose: 1,000 mg Aspirin (Aspirin 81 Mg Ectab) 81 mg PO DAILY SALO Stop: 05/22/22 08:59 Atorvastatin Calcium (Atorvastatin 20 Mg Tab) 20 mg PO DAILY SALO Stop: 05/22/22 08:59 Atropine Sulfate (Atropine Sulfate 0.1 Mg/Ml 10ml Syr) 0.5 mg IV Q1M PRN PRN Reason: PACU Use-HR<40 &/or Bradycardi Stop: 04/22/22 20:16 Atropine Sulfate (Atropine Sulfate 0.1 Mg/Ml 10ml Syr) 0.5 mg IV Q1M PRN PRN Reason: PACU Use-HR<40 &/or Bradycardi Stop: 04/22/22 21:23 Atropine Sulfate (Atropine Sulfate 0.1 Mg/Ml 10ml Syr) 0.5 mg IV Q1M PRN PRN Reason: PACU Use-HR<40 &/or Bradycardi Stop: 04/22/22 22:57 Baclofen (Baclofen 20 Mg Tab) 20 mg PO TID PRN PRN Reason: muscle spasms Stop: 05/21/22 18:44 Bisacodyl (Bisacodyl 5 Mg Tabec) 10 mg PO DAILY SALO Stop: 05/22/22 08:59 Dexamethasone (Dexamethasone Sod Inj 4 Mg/Ml Vial) 4 mg IV ONCE PRN PRN Reason: PACU Use Only-Nausea/Vomiting Stop: 04/22/22 19:49 Ephedrine Sulfate (Ephedrine Sulfate 50 Mg/Ml Amp) 5 mg IV Q5M PRN PRN Reason: PACU Use Only-SBP<90 mmHg Stop: 04/22/22 20:16 Last Admin: 04/22/22 14:50 Dose: 5 mg Ephedrine Sulfate (Ephedrine Sulfate 50 Mg/Ml Amp) 5 mg IV Q5M PRN PRN Reason: PACU Use Only-SBP<90 mmHg Stop: 04/22/22 21:23 Ephedrine Sulfate (Ephedrine Sulfate 50 Mg/Ml Amp) 5 mg IV Q5M PRN PRN Reason: PACU Use Only-SBP<90 mmHg Stop: 04/22/22 22:57 Fentanyl Citrate (Fentanyl Citrate 100 Mcg/2 Ml Vial) 50 mcg IV Q5M PRN PRN Reason: PACU Use Only-Pain Stop: 04/22/22 19:03 Last Admin: 04/22/22 11:12 Dose: 50 mcg Fluoxetine HCl (Fluoxetine Hcl 20 Mg Cap) 60 mg PO DAILY [facility] Stop: 05/22/22 08:59 Hydromorphone HCl (Hydromorphone Inj 2 Mg/Ml Syr/Vial) 0.5 mg IV Q5M PRN PRN Reason: PACU Use Only-Pain Stop: 04/22/22 20:17 Hydromorphone HCl (Hydromorphone Inj 2 Mg/Ml Syr/Vial) 0.5 mg IV Q5M PRN PRN Reason: PACU Use Only-Pain Stop: 04/22/22 21:25 Last Admin: 04/22/22 13:21 Dose: 0.5 mg Hydroxyzine HCl (Hydroxyzine Hcl 25 Mg Tab) 25 mg PO BID PRN PRN Reason: Anxiety Stop: 05/21/22 18:44 Albumin Human (Albumin 25%) 12.5 gm in 50 mls @ 50 mls/hr IV Q1H SALO Stop: 04/22/22 17:44 Last Admin: 04/22/22 15:54 Dose: 50 mls/hr Levothyroxine Sodium (Levothyroxine Sodium 88 Mcg Tablet) 88 mcg PO DAILYBB SALO Stop: 05/22/22 06:29 Last Admin: 04/22/22 06:05 Dose: 88 mcg Losartan Potassium (Losartan Potassium 25 Mg Tab) 25 mg PO DAILY SALO Stop: 05/22/22 08:59 Melatonin (Melatonin 3 Mg Tab) 9 mg PO HSZ PRN PRN Reason: Sleep Stop: 05/21/22 19:34 Miscellaneous (Vesicare~Order Awaiting Action) 1 each N/A QS SALO Stop: 05/21/22 19:44 Last Admin: 04/22/22 08:01 Dose: Not Given Morphine Sulfate (Morphine Sulfate 2 Mg/Ml Carp) 2 mg IV Q4H PRN PRN Reason: Breakthrough Pain Stop: 05/05/22 18:44 Last Admin: 04/21/22 19:49 Dose: 2 mg Morphine Sulfate (Morphine Sulfate 4 Mg/Ml 1 Ml Carp\Vial) 4 mg IV Q4H PRN PRN Reason: Severe Pain Stop: 05/05/22 18:44 Last Admin: 04/22/22 04:41 Dose: 4 mg Ondansetron HCl (Ondansetron Inj 2 Mg/Ml 2 Ml Vial) 4 mg IV ONCE PRN PRN Reason: PACU Use Only-Nausea/Vomiting Stop: 04/22/22 19:49 Oxycodone HCl (Oxycodone Hcl Ir 5 Mg Tab (Immediate Release)) 5 mg PO Q6H PRN PRN Reason: Pain Stop: 05/05/22 18:44 Last Admin: 04/21/22 21:23 Dose: 5 mg Phenylephrine HCl (Phenylephrine 100mcg/Ml 5ml Syr) 100 mcg IV Q5M PRN PRN Reason: PACU Use Only-SBP<90 or HR>70 Stop: 04/22/22 22:58 Last Admin: 04/22/22 16:15 Dose: 100 mcg Polyethylene Glycol (Polyethylene (Miralax) 17 Gm Pack) 17 gm PO DAILY SALO Stop: 05/22/22 08:59 Trazodone HCl (Trazodone Hcl 100 Mg Tab) 100 mg PO HS PRN PRN Reason: Insomnia Stop: 05/21/22 18:44 Last Admin: 04/21/22 21:23 Dose: 100 mg
[2022-04-22 16:54] LABS: Hematocrit (blood only) 30.9 % (34.1-44.9); Hemoglobin 10.2 g/dl (12.0-16.0)
[2022-04-22] MEDS ORDERED: SODIUM CHLORIDE 0.9% 1000ML 1,000 ML IV SCH (19:52)
[2022-04-22] MEDS: FLUoxetine HCL 20 MG CAP PO SCH (20:06)
[2022-04-22] MEDS: ATORVASTATIN 20 MG TAB PO SCH (20:06)
[2022-04-22] MEDS: bisacodyL 5 MG TABEC PO SCH (20:06)
[2022-04-22] MEDS: ASPIRIN 81 MG ECTAB PO SCH (20:06)
[2022-04-22] MEDS: POLYETHYLENE (MIRALAX) 17 GM PACK PO SCH (20:07)
[2022-04-22] MEDS: LOSARTAN POTASSIUM 25 MG TAB PO SCH (20:07)
[2022-04-22] MEDS: oxyCODONE HCL IR 5 MG TAB (IMMEDIATE RELEASE) PO PRN (22:37)
[2022-04-22] MEDS: traZODone HCL 100 MG TAB PO PRN (22:38)
[2022-04-22] MEDS: BACLOFEN 20 MG TAB PO PRN (22:38)
[2022-04-23] MEDS: oxyCODONE HCL IR 5 MG TAB (IMMEDIATE RELEASE) PO PRN ×3 (05:54→21:44)
[2022-04-23] MEDS: ACETAMINOPHEN 500 MG TAB PO SCH ×3 (05:55→21:45)
[2022-04-23] MEDS: LEVOTHYROXINE SODIUM 88 MCG TABLET PO SCH (05:56)
[2022-04-23 06:15] LABS: Hemoglobin 10.6 g/dl (12.0-16.0); Mean Corpuscular Hemoglobin 30.4 pg (25.0-34.0); Mean Corpuscular Hgb Conc 32.1 g/dL (32.0-36.0); Mean Corpuscular Volume 94.6 fL (80.0-100.0); Mean Platelet Volume 9.1 fL (9.4-12.3); Platelet Count 198 K/uL (130-400); RDW Coefficient of Variation 13.6 % (11.5-14.5); Red Blood Count 3.49 M/uL (3.93-5.22); White Blood Count 13.27 K/ul (4.8-10.8)
[2022-04-23 06:38] LABS: Calcium 7.8 mg/dl (8.5-10.1); Creatinine Clr Calc Pharmacy 74.5 ml/min; Est GFR (African American) 104.1 ml/min; Est GFR (Non-African American) 89.8 ml/min; Potassium 4.6 mmol/L (3.5-5.1)
--- NOTE | 2022-04-23 08:10 | Orthopedic Progress Note ---
Date of Service April 23, 2022 Assessment & Plan (1) Acute herniated disc: Plan: At this time I encouraged her to begin physical therapy today will monitor HARJIT output hopefully be able discontinue her Oliveros today if she is tolerating physical therapy and plan for discharge home in the next few days. Admission and Anticipated Discharge Date Admission Date: April 21, 2022 Subjective Back pain is controlled leg numbness and pain markedly improved Physical Exam Physical Exam: Patient is comfortable in bed. Is good strength testing. Sensory is intact. Results & Data ([facility]) Vital Signs (Past 12 Hours) Vital Signs Temp Pulse Pulse Resp BP Pulse Ox O2 Del Method 04/23/22 03:57 36.7 C 72 16 106/66 96 Nasal Cannula 04/22/22 22:20 70 04/22/22 22:55 36.9 C 73 16 100/62 95 Room Air 04/22/22 21:59 98/59 L 96
[2022-04-23] MEDS: ATORVASTATIN 20 MG TAB PO SCH (08:16)
[2022-04-23] MEDS: ASPIRIN 81 MG ECTAB PO SCH (08:16)
[2022-04-23] MEDS: BACLOFEN 20 MG TAB PO PRN ×2 (08:16→21:44)
[2022-04-23] MEDS: POLYETHYLENE (MIRALAX) 17 GM PACK PO SCH (08:19)
[2022-04-23] MEDS: FLUoxetine HCL 20 MG CAP PO SCH (10:06)
[2022-04-23] MEDS: LOSARTAN POTASSIUM 25 MG TAB PO SCH (10:07)
[2022-04-23] MEDS: bisacodyL 5 MG TABEC PO SCH (10:07)
--- NOTE | 2022-04-23 15:12 | Hospitalist Progress Note ---
Date of Service April 23, 2022 Assessment & Plan (1) Degenerative disc disease: (2) Back pain: Plan: This is a 72 yo F with PMHx of degnerative disc disease, herniated disc, back pain, HTN, HLD, hypothyroidism, vitamin D deficiency, prediabetes, CKD stage III, and other medical conditions listed below who presents to the ER with worsening back pain. POD#1 s/p lumbar decompression with bilateral medial facetectomies and foraminotomies L2-L3, posterior spinal fusion L2-L3. #3 placed posterior instrumentation L2-3 and interbody fusion L2-L3 In PACU postoperatively for management of hypotension, pain Per ortho for pain control, wound care, anticoagulation and activities Monitor H&H (EBL 75ml, hgb 13.4, continue incentive spirometry, PT/OT when appropriate) Complains to have some pain and will get PT and OT as per Ortho (3) Hypotension: Plan: Lumbar discShe is a status post patient and fusion L2-L3 She received total of 5.5 mg of Dilaudid and 100 mcg of IV clonidine per operatively Blood pressure was noted to be around systolic 80s following the procedure in PACU She received a total of 4 L of normal saline with improvement of blood pressure to around 100 She was saturating normally on room air but with the activity and movement the saturation was going down She will continue to have normal saline at a rate of 100 cc an hour and monitor for fluid overload She will need to be transferred to PCU for close monitoring at least for tonight Blood pressure remained stable more than 100 systolic Will be transferred to medical floor continuation of care (4) HTN (hypertension): Plan: Hypotensive post-operatively. Hold losartan for now (5) HLD (hyperlipidemia): Plan: Continue statin (6) Hypothyroid: Plan: Continue levothyroxine (7) Stage 3a chronic kidney disease (CKD): Plan: Stable. Continue to monitor with daily BMP CODE: Full code Dispo: Per primary service Admission and Anticipated Discharge Date Admission Date: April 21, 2022 Subjective 04/23/2022 The patient was seen and examined in telemetry unit She is a status post lumbar decompression and fusion POD #1 She has been feeling much better with minimal pain and her blood pressure is maintained Will be transferred to medical floor for continuation of care Review of Systems Review of Systems: All systems reviewed and are unremarkable except as noted below Physical Exam Physical Exam: Lying in bed comfortably Constitutional: + ill appearing and average body habitus Eyes: PERRL, conjunctivae normal, anicteric sclerae ENMT: external ear and nose normal, oropharynx normal Neck: trachea midline, no thyromegaly Respiratory: no respiratory distress Auscultation: lungs clear to auscultation bilaterally; no crackles Cardiovascular: Rate/Rhythm: regular rate and regular rhythm; not tachycardic Heart Sounds: normal S1 and normal S2; no murmur Gastrointestinal (Abdomen): Inspection/Auscultation: normal bowel sounds; abdomen not distended Percussion/Palpation: abdomen soft; abdomen nontender Musculoskeletal: Back pain without radiculopathy Neurologic: normal touch/pain/proprioception and moves all extremities; no focal motor deficits Psychiatric: A+Ox3, euthymic affect Lymphatic: no cervical or axillary lymphadenopathy Results & Data Results & Data ([facility]) Vital Signs (Past 12 Hours) Vital Signs Temp Pulse Pulse Resp BP Pulse Ox Pulse Ox 04/23/22 14:03 96 04/23/22 06:11 70 04/23/22 12:49 36.7 C 69 18 92/61 L 95 04/23/22 08:09 37.0 C 69 18 120/74 94 04/23/22 03:57 36.7 C 72 16 106/66 96 Pulse Ox Pulse Ox O2 Del Method O2 Flow Rate O2 Flow Rate O2 Flow Rate 04/23/22 14:03 96 95 0 2 0 04/23/22 06:11 04/23/22 12:49 04/23/22 08:09 Room Air 04/23/22 03:57 Nasal Cannula Laboratory Results Short CBC 04/22/22 04/23/22 Range/Units 16:46 05:41 WBC 13.27 H (4.8-10.8) K/ul Hgb 10.2 L D 10.6 L (12.0-16.0) g/dl Hct 30.9 L 33.0 L (34.1-44.9) % Plt Count 198 (130-400) K/uL BMP 04/23/22 05:41 Sodium 137 Potassium 4.6 Chloride 106 Carbon Dioxide 27 BUN 15 Creatinine 0.60 Glucose 119 H Calcium 7.8 L Medications Administered Current Inpatient Medications Acetaminophen (Acetaminophen 500 Mg Tab) 1,000 mg PO Q8H SALO Stop: 05/21/22 21:59 Last Admin: 04/23/22 13:43 Dose: Not Given Aspirin (Aspirin 81 Mg Ectab) 81 mg PO DAILY SALO Stop: 05/22/22 08:59 Last Admin: 04/23/22 08:16 Dose: 81 mg Atorvastatin Calcium (Atorvastatin 20 Mg Tab) 20 mg PO DAILY SALO Stop: 05/22/22 08:59 Last Admin: 04/23/22 08:16 Dose: 20 mg Baclofen (Baclofen 20 Mg Tab) 20 mg PO TID PRN PRN Reason: muscle spasms Stop: 05/21/22 18:44 Last Admin: 04/23/22 08:16 Dose: 20 mg Bisacodyl (Bisacodyl 5 Mg Tabec) 10 mg PO DAILY SALO Stop: 05/22/22 08:59 Last Admin: 04/23/22 10:07 Dose: 10 mg Fluoxetine HCl (Fluoxetine Hcl 20 Mg Cap) 60 mg PO DAILY SALO Stop: 05/22/22 08:59 Last Admin: 04/23/22 10:06 Dose: 60 mg Hydroxyzine HCl (Hydroxyzine Hcl 25 Mg Tab) 25 mg PO BID PRN PRN Reason: Anxiety Stop: 05/21/22 18:44 Levothyroxine Sodium (Levothyroxine Sodium 88 Mcg Tablet) 88 mcg PO DAILYBB [facility] Stop: 05/22/22 06:29 Last Admin: 04/23/22 05:56 Dose: 88 mcg Losartan Potassium (Losartan Potassium 25 Mg Tab) 25 mg PO DAILY SALO Stop: 05/22/22 08:59 Last Admin: 04/23/22 10:07 Dose: 25 mg Oxycodone HCl (Oxycodone Hcl Ir 5 Mg Tab (Immediate Release)) 5 mg PO Q6H PRN PRN Reason: Pain Stop: 05/05/22 18:44 Last Admin: 04/23/22 13:42 Dose: 5 mg Polyethylene Glycol (Polyethylene (Miralax) 17 Gm Pack) 17 gm PO DAILY SALO Stop: 05/22/22 08:59 Last Admin: 04/23/22 08:19 Dose: Not Given Trazodone HCl (Trazodone Hcl 100 Mg Tab) 100 mg PO HS PRN PRN Reason: Insomnia Stop: 05/21/22 18:44 Last Admin: 04/22/22 22:38 Dose: 100 mg
[2022-04-23] MEDS: traZODone HCL 100 MG TAB PO PRN (21:44)
[2022-04-23] MEDS: hydrOXYzine HCl 25 MG TAB PO PRN (21:53)
[2022-04-24] MEDS: LEVOTHYROXINE SODIUM 88 MCG TABLET PO SCH (06:05)
[2022-04-24] MEDS: ACETAMINOPHEN 500 MG TAB PO SCH ×3 (06:05→21:15)
[2022-04-24 06:29] LABS: Hematocrit (blood only) 31.2 % (34.1-44.9); Hemoglobin 10.1 g/dl (12.0-16.0); Mean Corpuscular Hemoglobin 30.3 pg (25.0-34.0); Mean Corpuscular Hgb Conc 32.4 g/dL (32.0-36.0); Mean Corpuscular Volume 93.7 fL (80.0-100.0); Mean Platelet Volume 9.1 fL (9.4-12.3); Platelet Count 176 K/uL (130-400); RDW Coefficient of Variation 13.5 % (11.5-14.5); RDW Standard Deviation 46.5 fL (36.4-46.3); Red Blood Count 3.33 M/uL (3.93-5.22); White Blood Count 9.31 K/ul (4.8-10.8)
[2022-04-24 07:00] LABS: BUN Creatinine Ratio 18.2 (10-20); Calcium 7.9 mg/dl (8.5-10.1); Creatinine Clr Calc Pharmacy 67.7 ml/min; Est GFR (African American) 100.9 ml/min; Potassium 4.3 mmol/L (3.5-5.1)
[2022-04-24] MEDS: bisacodyL 5 MG TABEC PO SCH (07:59)
[2022-04-24] MEDS: oxyCODONE HCL IR 5 MG TAB (IMMEDIATE RELEASE) PO PRN ×2 (07:59→21:16)
[2022-04-24] MEDS: FLUoxetine HCL 20 MG CAP PO SCH (08:02)
[2022-04-24] MEDS: ASPIRIN 81 MG ECTAB PO SCH (08:02)
[2022-04-24] MEDS: LOSARTAN POTASSIUM 25 MG TAB PO SCH (08:02)
[2022-04-24] MEDS: ATORVASTATIN 20 MG TAB PO SCH (08:02)
[2022-04-24] MEDS: BACLOFEN 20 MG TAB PO PRN ×2 (08:02→22:02)
[2022-04-24] MEDS: POLYETHYLENE (MIRALAX) 17 GM PACK PO SCH (08:03)
--- NOTE | 2022-04-24 10:06 | Orthopedic Progress Note ---
Date of Service April 24, 2022 Assessment & Plan (1) Sciatica associated with disorder of lumbar spine: Plan: This time we will continue physical therapy monitor HARJIT output. She would be stable for discharge home per orthopedics most likely Monday. Admission and Anticipated Discharge Date Admission Date: April 21, 2022 Subjective Patient's back pain is controlled leg symptoms markedly improved. She tolerated physical therapy well yesterday. Physical Exam Physical Exam: On exam she has good strength testing peers comfortable. Results & Data ([facility]) Vital Signs (Past 12 Hours) Vital Signs Temp Pulse Pulse Resp BP BP Pulse Ox 04/24/22 07:58 36.7 C 60 18 109/74 93 04/24/22 03:24 36.8 C 58 L 18 104/69 100/67 95 04/23/22 22:20 70 04/23/22 23:12 36.9 C 67 18 85/55 L 93 O2 Del Method 04/24/22 07:58 Room Air 04/24/22 03:24 Room Air 04/23/22 22:20 04/23/22 23:12 Room Air
--- NOTE | 2022-04-24 13:23 | Hospitalist Progress Note ---
Date of Service April 24, 2022 Assessment & Plan (1) Degenerative disc disease: (2) Back pain: Plan: This is a 72 yo F with PMHx of degnerative disc disease, herniated disc, back pain, HTN, HLD, hypothyroidism, vitamin D deficiency, prediabetes, CKD stage III, and other medical conditions listed below who presents to the ER with worsening back pain. POD#1 s/p lumbar decompression with bilateral medial facetectomies and foraminotomies L2-L3, posterior spinal fusion L2-L3. #3 placed posterior instrumentation L2-3 and interbody fusion L2-L3 In PACU postoperatively for management of hypotension, pain Per ortho for pain control, wound care, anticoagulation and activities Monitor H&H (EBL 75ml, hgb 13.4, continue incentive spirometry, PT/OT when appropriate) Complains to have some pain and will get PT and OT as per Ortho CBC and PRP remain unremarkable (3) Hypotension: Plan: Lumbar discShe is a status post patient and fusion L2-L3 She received total of 5.5 mg of Dilaudid and 100 mcg of IV clonidine per operatively Blood pressure was noted to be around systolic 80s following the procedure in PACU She received a total of 4 L of normal saline with improvement of blood pressure to around 100 She was saturating normally on room air but with the activity and movement the saturation was going down She will continue to have normal saline at a rate of 100 cc an hour and monitor for fluid overload She will need to be transferred to PCU for close monitoring at least for tonight Blood pressure remained stable more than 100 systolic Will be transferred to medical floor continuation of care Medically stable to be transferred to medical floor and to continue PT not already PT (4) HTN (hypertension): Plan: Hypotensive post-operatively. Hold losartan for now (5) HLD (hyperlipidemia): Plan: Continue statin (6) Hypothyroid: Plan: Continue levothyroxine (7) Stage 3a chronic kidney disease (CKD): Plan: Stable. Continue to monitor with daily BMP CODE: Full code Dispo: Per primary service Admission and Anticipated Discharge Date Admission Date: April 21, 2022 Subjective 04/23/2022 The patient was seen and examined in telemetry unit She is a status post lumbar decompression and fusion POD #1 She has been feeling much better with minimal pain and her blood pressure is maintained Will be transferred to medical floor for continuation of care 04/24/2022 The patient was seen and examined in telemetry unit She has been feeling much better and the blood pressure is maintained at around 105/69 Denies any significant symptoms and has been getting physical therapy Review of Systems Review of Systems: All systems reviewed and are unremarkable except as noted below Physical Exam Physical Exam: Lying in bed comfortably Constitutional: + ill appearing and average body habitus Eyes: PERRL, conjunctivae normal, anicteric sclerae ENMT: external ear and nose normal, oropharynx normal Neck: trachea midline, no thyromegaly Respiratory: no respiratory distress Auscultation: lungs clear to auscultation bilaterally; no crackles Cardiovascular: Rate/Rhythm: regular rate and regular rhythm; not tachycardic Heart Sounds: normal S1 and normal S2; no murmur Gastrointestinal (Abdomen): Inspection/Auscultation: normal bowel sounds; abdomen not distended Percussion/Palpation: abdomen soft; abdomen nontender Neurologic: normal touch/pain/proprioception and moves all extremities; no focal motor deficits Psychiatric: A+Ox3, euthymic affect Lymphatic: no cervical or axillary lymphadenopathy Results & Data Results & Data ([facility]) Vital Signs (Past 12 Hours) Vital Signs Temp Pulse Pulse Resp BP BP Pulse Ox 04/24/22 11:31 37.1 C 64 17 105/69 95 04/24/22 06:05 62 04/24/22 07:58 36.7 C 60 18 109/74 93 04/24/22 03:24 36.8 C 58 L 18 104/69 100/67 95 O2 Del Method 04/24/22 11:31 Room Air 04/24/22 06:05 04/24/22 07:58 Room Air 04/24/22 03:24 Room Air Laboratory Results Short CBC 04/24/22 Range/Units 06:07 WBC 9.31 (4.8-10.8) K/ul Hgb 10.1 L (12.0-16.0) g/dl Hct 31.2 L (34.1-44.9) % Plt Count 176 (130-400) K/uL BMP 04/24/22 06:07 Sodium 138 Potassium 4.3 Chloride 106 Carbon Dioxide 31 BUN 12 Creatinine 0.66 Glucose 88 Calcium 7.9 L Medications Administered Current Inpatient Medications Acetaminophen (Acetaminophen 500 Mg Tab) 1,000 mg PO Q8H SALO Stop: 09/17/22 21:59 Last Admin: 04/24/22 13:01 Dose: 1,000 mg Aspirin (Aspirin 81 Mg Ectab) 81 mg PO DAILY SALO Stop: 05/22/22 08:59 Last Admin: 04/24/22 08:02 Dose: 81 mg Atorvastatin Calcium (Atorvastatin 20 Mg Tab) 20 mg PO DAILY SALO Stop: 05/22/22 08:59 Last Admin: 04/24/22 08:02 Dose: 20 mg Baclofen (Baclofen 20 Mg Tab) 20 mg PO TID PRN PRN Reason: muscle spasms Stop: 05/21/22 18:44 Last Admin: 04/24/22 08:02 Dose: 20 mg Bisacodyl (Bisacodyl 5 Mg Tabec) 10 mg PO DAILY SALO Stop: 05/22/22 08:59 Last Admin: 04/24/22 07:59 Dose: 10 mg Fluoxetine HCl (Fluoxetine Hcl 20 Mg Cap) 60 mg PO DAILY SALO Stop: 05/22/22 08:59 Last Admin: 04/24/22 08:02 Dose: 60 mg Hydroxyzine HCl (Hydroxyzine Hcl 25 Mg Tab) 25 mg PO BID PRN PRN Reason: Anxiety Stop: 05/21/22 18:44 Last Admin: 04/23/22 21:53 Dose: 25 mg Levothyroxine Sodium (Levothyroxine Sodium 88 Mcg Tablet) 88 mcg PO DAILYBB [facility] Stop: 05/22/22 06:29 Last Admin: 04/24/22 06:05 Dose: 88 mcg Losartan Potassium (Losartan Potassium 25 Mg Tab) 25 mg PO DAILY SALO Stop: 05/22/22 08:59 Last Admin: 04/24/22 08:02 Dose: 25 mg Oxycodone HCl (Oxycodone Hcl Ir 5 Mg Tab (Immediate Release)) 5 mg PO Q6H PRN PRN Reason: Pain Stop: 05/05/22 18:44 Last Admin: 04/24/22 07:59 Dose: 5 mg Polyethylene Glycol (Polyethylene (Miralax) 17 Gm Pack) 17 gm PO DAILY SALO Stop: 05/22/22 08:59 Last Admin: 04/24/22 08:03 Dose: Not Given Trazodone HCl (Trazodone Hcl 100 Mg Tab) 100 mg PO HS PRN PRN Reason: Insomnia Stop: 05/21/22 18:44 Last Admin: 04/23/22 21:44 Dose: 100 mg
[2022-04-24] MEDS: hydrOXYzine HCl 25 MG TAB PO PRN (22:02)
[2022-04-24] MEDS: traZODone HCL 100 MG TAB PO PRN (22:02)
[2022-04-24 23:11] VITALS: O2SAT 94
[2022-04-25] MEDS: ACETAMINOPHEN 500 MG TAB PO SCH (05:22)
[2022-04-25] MEDS: LEVOTHYROXINE SODIUM 88 MCG TABLET PO SCH (05:22)
[2022-04-25] MEDS: FLUoxetine HCL 20 MG CAP PO SCH (07:56)
[2022-04-25] MEDS: LOSARTAN POTASSIUM 25 MG TAB PO SCH (07:56)
[2022-04-25] MEDS: ATORVASTATIN 20 MG TAB PO SCH (07:56)
[2022-04-25] MEDS: ASPIRIN 81 MG ECTAB PO SCH (07:56)
[2022-04-25] MEDS: POLYETHYLENE (MIRALAX) 17 GM PACK PO SCH (07:57)
[2022-04-25] MEDS: bisacodyL 5 MG TABEC PO SCH (07:58)
--- NOTE | 2022-04-25 10:26 | Orthopedic Progress Note ---
Date of Service April 25, 2022 Assessment & Plan (1) Sciatica associated with disorder of lumbar spine: Plan: This time she is progressing nicely. HARJIT drain decreasing appropriately. Tolerating physical therapy. Subsequent discharge home. Discharge orders instructions from the chart for further view. Admission and Anticipated Discharge Date Admission Date: April 21, 2022 Subjective Patient's back pain is controlled leg symptoms markedly improved. Physical Exam Physical Exam: On exam patient is ambulating about the room. He is comfortable. Skin strength testing. Results & Data ([facility]) Vital Signs (Past 12 Hours) Vital Signs Temp Pulse Resp BP Pulse Ox O2 Del Method 04/25/22 08:00 Room Air 04/25/22 07:00 37.0 C 72 20 134/72 94 Room Air 04/25/22 04:00 36.7 C 64 16 121/68 94 Room Air 04/24/22 23:00 36.8 C 62 20 117/73 94 Room Air
--- NOTE | 2022-04-25 10:30 | Discharge Summary ---
Date of Service April 25, 2022 Admission HPI Per Admitting Provider This is a 72 yo F with PMHx of degnerative disc disease, herniated disc, back pain, HTN, HLD, hypothyroidism, vitamin D deficiency, prediabetes, CKD stage III, and other medical conditions listed below who presents to the ER with worsening back pain. She was scheduled to see outpatient orthopedics in [place] on 04/25 however reports her pain is so severe that she presented to the ER today. She was previously seen in the ER here at [facility] approximately 2 weeks ago where she was given pain medication and was discharged home. She lives at home by herself, and her sister who is present at bedside reports that she has been falling nearly daily. 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 She manages her own medications and did take them today. Most recently she completed a prednisone pack x5 days on Monday and is unsure that it helped with her pain. She has trialed oxycodone and Tylenol but feel that they have not relieved her pain either. Currently her pain is rated an 8/10 and is worse with minimal movements. She is able to move her toes and ankles and slightly bend her knees while laying flat in bed. She admits to having severe pain go from her buttocks down the back sides of both of her legs, slightly worse in the right compared to the left. She denies any saddle anesthesia, loss of bowel or bladder dysfunction. Last bowel movement was 2 days ago and reports that she typically goes once within a 7-day and it has been like this for years. Patient had an out patient MRI completed on 04/14 and it was read on 04/17 of the lumbar spine showing L2-3 extruded disc centrally, resulting in severe thecal sac stenosis, nerve root crowding and severe bilateral subarticular stenosis, additionally showing degenerative spondylosis of the mid and lower spine is similar to the previous study with severe bilateral foraminal narrowing of L5- S1. Principal Diagnosis Lumbar disc herniation with bilateral sciatica Discharge Data Allergies Allergy/AdvReac Type Severity Reaction Status Date / Time lisinopril Allergy Intermediate Cough Verified 03/08/22 21:43 morphine Allergy Intermediate Rash Verified 03/08/22 21:43 Sulfa (Sulfonamide Allergy Intermediate Nausea Verified 03/08/22 21:43 Antibiotics) Consultations 04/21/22 13:50 ED Decision to Admit Stat 04/21/22 13:58 Consult Orthopedic Surgery Routine Procedures Performed Operation Date: 04/22/22 08:00 Actual Procedures p Decompression Fusion L-2-L-3(Not Applicable) - Wale Tamayo DO Ordered Studies 04/22/22 [place] lumbar spine 2-3V Routine Hospital Course (1) Sciatica associated with disorder of lumbar spine: Patient was admitted with severe back and bilateral leg pain with weakness and subsequently underwent urgent decompression fusion following day. Postoperatively she did well up and ambulating postop day 1 and 2. Postop day 3 HARJIT drain decreased probably. Excellent strength testing. Separately discharged home. Discharge orders instructions from the chart for further review. Total Time Total Time Spent Total Time Spent (In Minutes): 20 minutes Discharge Plan Discharge Items Patient Disposition: Home - Self-Care Reason For Visit: INTRACTABLE BACK PAIN Discharge Diagnosis: Lumbar disc herniation with radiculopathy Activity: As commented below Non-emergency contact: Primary Care Provider Call non-emergency contact if: you have any medication questions Follow-up/Referrals: Charlotte Tran MD [Primary Care Provider] - Diet: Regular Addtl Attending Provider Instructions: ACTIVITY RECOMMENDATIONS: SELF CARE INSTRUCTIONS AFTER THORACIC/LUMBAR FUSIONS 1. You may walk to your tolerance. It is good exercise for your legs and back. Expect some back and intermittent leg aches and pains. 2. You may perform "counter-top" level activities (make a sandwich, ketty with a project, etc.). 3. No bending or lifting of more than 10 pounds or back twisting of any nature (roll like a log when turning in bed). 4. You may ride in a car for 20-30 minutes at a time. No driving until after your first visit with your doctor. 5. Frequent changes of position and restricting sitting to 30 minutes at a time will help limit the amount of back spasms and stiffness you may experience. 6. You may discontinue the use of ambulatory aids (cane, crutches, etc.) once your strength and confidence allow. 7. You may drug coordinator the shower and let water strike your incision when you arrive home at least once daily. Do not take a tub bath, sit in a hot tub or go into a swimming pool until after your first recheck in the office. SPECIAL CARE INSTRUCTIONS: VERY IMPORTANT TO READ AND REVIEW A. Your surgical incision has been closed with a cosmetic suture under the skin that will dissolve in about 6 weeks. In 14 days, you can use a pair of clean scissors and cut the suture that is left outside of the skin at th e ends of your incision. 1. The small skin tapes can be removed 7 days after surgery if they have not fallen off by that point. 2. You may keep the wound open to air as much as possible to promote healing after post-op day number 5 unless told otherwise by your doctor. 3. If you think the wound looks like it is becoming infected (redness or worsening drainage) and/or you are experiencing fever, chill or worsening back pain and muscle spasms, contact the office so that we may evaluate you as soon as possible. B. Complications are uncommon, but please contact us if you have any signs or symptoms of: 1. wound infection (fever higher than 102.5 degrees F, redness, separation of wound, drainage, or increasing pain from the incision) 2. blood clots in legs (pain, swelling, redness and warmth in legs) 3. urinary tract infection (fever higher than 102.5 degrees F, burning upon urination or increased frequency of urination) 4. nerve problems (inability to walk on your toes or heels, numbness, loss of bowel or bladder control) 5. any other symptoms that concern you C. Please call the office at if you have any concerns or questions about your operation or recovery. D. No smoking! Smoking drastically decreases the chance of a solid fusion. E. Do not take any anti-inflammatory medications (Indocin, Advil, Motrin, Aspirin, Naprosyn, etc.) as these may inhibit the chance of a solid fusion. Tylenol is okay to take for pain. MANAGING PAIN AFTER SPINAL SURGERY 1. Narcotic medication is intended for short-term use and will be provided for surgical pain. Surgical pain usually lasts for a period of 4-6 weeks. Narcotic medication includes Percocet, Vicodin, Darvocet, Tylenol #3 or Lortab. 2. Longer-term pain is more appropriately treated with non-narcotic medication such as Tylenol ES. 3. Muscle spasm is not appropriately treated with narcotics. Muscle relaxers such as Soma, Flexeril or Skelaxin can be used along with Tylenol ES. 4. Remember that we all live with some "aches and pains". This is not unusual or uncommon after an injury or as we get older. a. Back pain is expected and may include muscle spasms for 4 to 6 weeks after surgery. The pain should gradually improve. If the pain worsens for no apparent reason, please contact the office. b. Intermittent leg pain may also be experienced and should not be concerned about unless it worsens for no apparent reason. If so, please contact the office. 5. We will provide appropriate medication within the normal guidelines of their prescribed use. We will also be very cautious and aware of potential abuse and extended duration of patients' medication needs. a. Pain medications are for your comfort and to assist with sleep and rest so that the tissue can heal. They are not provided in order to return to normal activity and should not be used through the day. To do so or worsening pain at night can result from ongoing tissue damage and development of tolerance to the prescribed medicine. 6. Please allow 2-3 days to process refills. Prescriptions will not be mailed but must be picked up at the office. FOLLOW UP VISIT: Keep your scheduled follow-up appointment. Any questions, please call the office at . Pending Studies at Discharge: No Stand-Alone Forms: My [facility] FFT, Smoking Cessation Medications and DC Order Prescriptions: New tramadol 50 mg tablet 50 mg PO Q6H PRN (Reason: pain, moderate) Qty: 30 0RF oxycodone 5 mg tablet 5 mg PO Q6H PRN (Reason: pain, severe) Qty: 30 0RF Continued trazodone 100 mg Tablet 100 mg PO HS PRN (Reason: Insomnia) levothyroxine 88 mcg tablet 88 mcg PO QAM albuterol sulfate 90 mcg/actuation HFA aerosol inhaler 2 puff Inhalation QID PRN (Reason: Shortness Of Breath) ascorbic acid (vitamin C) [Vitamin C] 1,000 mg tablet 1,000 mg PO DAILY atorvastatin 20 mg tablet 20 mg PO DAILY aspirin [Dyana Low Dose Aspirin] 81 mg tablet,delayed release (DR/EC) 81 mg PO DAILY baclofen 20 mg tablet 20 mg PO TID PRN (Reason: muscle spasms) cyanocobalamin (vitamin B-12) [Vitamin B-12] 500 mcg tablet 500 mcg PO DAILY losartan 25 mg tablet 25 mg PO DAILY hydroxyzine HCl 25 mg tablet 25 mg PO BID PRN (Reason: Anxiety) fluoxetine 20 mg capsule 60 mg PO DAILY solifenacin 5 mg tablet 5 mg PO DAILY melatonin 10 mg tablet 10 mg PO DAILY Discharge Orders: Discharge Order (Routine); Ordered 04/25/22 Ordered By: Wale Tamayo Admission Data Admit Date/Time: 04/21/22 13:58 Attending Provider: Alen Avelar Admit Provider: David Lo Primary Care Provider: Charlotte Tran Other Providers: Marian Johnson ; David Lo ; Wale Tamayo
[2022-04-25] MEDS ORDERED: ONDANSETRON INJ 2 MG/ML 2 ML VIAL IV STA (11:35)
[2022-04-25 12:24] VITALS: BP 107/71; PULSE 66; TEMP 99.3
--- NOTE | 2022-04-25 12:55 | Hospitalist Progress Note ---
Date of Service April 25, 2022 Assessment & Plan (1) Degenerative disc disease: (2) Back pain: Plan: This is a 72 yo F with PMHx of degnerative disc disease, herniated disc, back pain, HTN, HLD, hypothyroidism, vitamin D deficiency, prediabetes, CKD stage III, and other medical conditions listed below who presents to the ER with worsening back pain. POD#1 s/p lumbar decompression with bilateral medial facetectomies and foraminotomies L2-L3, posterior spinal fusion L2-L3. #3 placed posterior instrumentation L2-3 and interbody fusion L2-L3 In PACU postoperatively for management of hypotension, pain Per ortho for pain control, wound care, anticoagulation and activities Monitor H&H (EBL 75ml, hgb 13.4, continue incentive spirometry, PT/OT when appropriate) Complains to have some pain and will get PT and OT as per Ortho CBC and PRP remain unremarkable Has been getting physical therapy and Ortho cleared her from discharge Has minimal pain at the back without any radiation (3) Hypotension: Plan: Lumbar discShe is a status post patient and fusion L2-L3 She received total of 5.5 mg of Dilaudid and 100 mcg of IV clonidine per operatively Blood pressure was noted to be around systolic 80s following the procedure in PACU She received a total of 4 L of normal saline with improvement of blood pressure to around 100 She was saturating normally on room air but with the activity and movement the saturation was going down She will continue to have normal saline at a rate of 100 cc an hour and monitor for fluid overload She will need to be transferred to PCU for close monitoring at least for tonight Blood pressure remained stable more than 100 systolic Will be transferred to medical floor continuation of care Medically stable to be transferred to medical floor and to continue PT not already PT Blood pressure remains on the lower side but more than 100 without any symptoms with activity Will be discharged home this afternoon (4) HTN (hypertension): Plan: Hypotensive post-operatively. Hold losartan for now Will hold losartan for now (5) HLD (hyperlipidemia): Plan: Continue statin (6) Hypothyroid: Plan: Continue levothyroxine (7) Stage 3a chronic kidney disease (CKD): Plan: Stable. Continue to monitor with daily BMP CODE: Full code Dispo: Per primary service Admission and Anticipated Discharge Date Admission Date: April 21, 2022 Subjective 04/23/2022 The patient was seen and examined in telemetry unit She is a status post lumbar decompression and fusion POD #1 She has been feeling much better with minimal pain and her blood pressure is maintained Will be transferred to medical floor for continuation of care 04/24/2022 The patient was seen and examined in telemetry unit She has been feeling much better and the blood pressure is maintained at around 105/69 Denies any significant symptoms and has been getting physical therapy 04/25/2022 The patient was seen and examined in telemetry unit She has been feeling much better and denies any significant pain She has been doing physical therapy and will be discharged home this afternoon Denies any dizziness and does not have any more hypotension Review of Systems Review of Systems: All systems reviewed and are unremarkable except as noted below Physical Exam Physical Exam: Lying in bed comfortably Constitutional: + ill appearing and average body habitus Eyes: PERRL, conjunctivae normal, anicteric sclerae ENMT: external ear and nose normal, oropharynx normal Neck: trachea midline, no thyromegaly Respiratory: no respiratory distress Auscultation: lungs clear to auscultation bilaterally; no crackles Cardiovascular: Rate/Rhythm: regular rate and regular rhythm; not tachycardic Heart Sounds: normal S1 and normal S2; no murmur Gastrointestinal (Abdomen): Inspection/Auscultation: normal bowel sounds; abdomen not distended Percussion/Palpation: abdomen soft; abdomen nontender Musculoskeletal: Back pain status post surgery without any radiation of pain Neurologic: normal touch/pain/proprioception and moves all extremities; no focal motor deficits Psychiatric: A+Ox3, euthymic affect Lymphatic: no cervical or axillary lymphadenopathy Results & Data Results & Data ([facility]) Vital Signs (Past 12 Hours) Vital Signs Temp Pulse Pulse Resp BP BP Pulse Ox 04/25/22 12:23 37.4 C 66 17 107/71 94 04/25/22 10:37 37.0 C 76 72 20 134/72 106/72 94 04/25/22 08:00 04/25/22 07:00 37.0 C 72 20 134/72 94 04/25/22 04:00 36.7 C 64 16 121/68 94 O2 Del Method 04/25/22 12:23 Room Air 04/25/22 10:37 04/25/22 08:00 Room Air 04/25/22 07:00 Room Air 04/25/22 04:00 Room Air Medications Administered Current Inpatient Medications Acetaminophen (Acetaminophen 500 Mg Tab) 1,000 mg PO Q8H SALO Stop: 05/21/22 21:59 Last Admin: 04/25/22 05:22 Dose: 1,000 mg Aspirin (Aspirin 81 Mg Ectab) 81 mg PO DAILY SALO Stop: 05/22/22 08:59 Last Admin: 04/25/22 07:56 Dose: 81 mg Atorvastatin Calcium (Atorvastatin 20 Mg Tab) 20 mg PO DAILY SALO Stop: 05/22/22 08:59 Last Admin: 04/25/22 07:56 Dose: 20 mg Baclofen (Baclofen 20 Mg Tab) 20 mg PO TID PRN PRN Reason: muscle spasms Stop: 05/21/22 18:44 Last Admin: 04/24/22 22:02 Dose: 20 mg Bisacodyl (Bisacodyl 5 Mg Tabec) 10 mg PO DAILY SALO Stop: 05/22/22 08:59 Last Admin: 04/25/22 07:58 Dose: 10 mg Fluoxetine HCl (Fluoxetine Hcl 20 Mg Cap) 60 mg PO DAILY SALO Stop: 05/22/22 08:59 Last Admin: 04/25/22 07:56 Dose: 60 mg Hydroxyzine HCl (Hydroxyzine Hcl 25 Mg Tab) 25 mg PO BID PRN PRN Reason: Anxiety Stop: 05/21/22 18:44 Last Admin: 04/24/22 22:02 Dose: 25 mg Levothyroxine Sodium (Levothyroxine Sodium 88 Mcg Tablet) 88 mcg PO DAILYBB SALO Stop: 05/22/22 06:29 Last Admin: 04/25/22 05:22 Dose: 88 mcg Losartan Potassium (Losartan Potassium 25 Mg Tab) 25 mg PO DAILY SALO Stop: 05/22/22 08:59 Last Admin: 04/25/22 07:56 Dose: 25 mg Oxycodone HCl (Oxycodone Hcl Ir 5 Mg Tab (Immediate Release)) 5 mg PO Q6H PRN PRN Reason: Pain Stop: 05/05/22 18:44 Last Admin: 04/24/22 21:16 Dose: 5 mg Polyethylene Glycol (Polyethylene (Miralax) 17 Gm Pack) 17 gm PO DAILY SALO Stop: 05/22/22 08:59 Last Admin: 04/25/22 07:57 Dose: Not Given Trazodone HCl (Trazodone Hcl 100 Mg Tab) 100 mg PO HS PRN PRN Reason: Insomnia Stop: 05/21/22 18:44 Last Admin: 04/24/22 22:02 Dose: 100 mg
--- NOTE | 2022-04-26 08:21 | Discharge Summary ---
Date of Service April 26, 2022 Admission HPI Per Admitting Provider This is a 72 yo F with PMHx of degnerative disc disease, herniated disc, back pain, HTN, HLD, hypothyroidism, vitamin D deficiency, prediabetes, CKD stage III, and other medical conditions listed below who presents to the ER with worsening back pain. She was scheduled to see outpatient orthopedics in [place] on 04/25 however reports her pain is so severe that she presented to the ER today. She was previously seen in the ER here at [facility] approximately 2 weeks ago where she was given pain medication and was discharged home. She lives at home by herself, and her sister who is present at bedside reports that she has been falling nearly daily. 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 She manages her own medications and did take them today. Most recently she completed a prednisone pack x5 days on Monday and is unsure that it helped with her pain. She has trialed oxycodone and Tylenol but feel that they have not relieved her pain either. Currently her pain is rated an 8/10 and is worse with minimal movements. She is able to move her toes and ankles and slightly bend her knees while laying flat in bed. She admits to having severe pain go from her buttocks down the back sides of both of her legs, slightly worse in the right compared to the left. She denies any saddle anesthesia, loss of bowel or bladder dysfunction. Last bowel movement was 2 days ago and reports that she typically goes once within a 7-day and it has been like this for years. Patient had an out patient MRI completed on 04/14 and it was read on 04/17 of the lumbar spine showing L2-3 extruded disc centrally, resulting in severe thecal sac stenosis, nerve root crowding and severe bilateral subarticular stenosis, additionally showing degenerative spondylosis of the mid and lower spine is similar to the previous study with severe bilateral foraminal narrowing of L5- S1. Admission Exam Per Admitting Provider Physical Exam: General: awake, alert, no apparent distress, + appears younger than stated age Head: Normocephalic, atraumatic ENT: PERRL, EOMI, no pharyngeal exudate, mucous membranes slightly dry Chest: Clear to auscultation, on room air, no adventitious breath sounds Cardiac: Regular rate and rhythm, no murmur, no JVD, normal peripheral pulses, good capillary refill Abdominal: NABS x 4 quadrants, soft, nondistended, nontender to palpation, no rebound or guarding Extremities: Normal inspection, no peripheral edema or erythema, calfs nontender to palpation Psych: Normal mood and affect Neuro: AAO x 3, strength intact bilaterally and rated 3/5 in lower extremities bilaterally, no motor deficits, speech is clear, no peripheral sensory deficits Principal Diagnosis Lumbar disc herniation with radiculopathy s/p Decompression and Fusion Discharge Exam Lying in bed comfortably Constitutional + ill appearing and average body habitus Eyes PERRL, conjunctivae normal, anicteric sclerae ENMT external ear and nose normal, oropharynx normal Neck trachea midline, no thyromegaly Respiratory no respiratory distress Auscultation: lungs clear to auscultation bilaterally; no crackles Cardiovascular Rate/Rhythm: regular rate and regular rhythm; not tachycardic Heart Sounds: normal S1 and normal S2; no murmur Gastrointestinal (Abdomen) Inspection/Auscultation: normal bowel sounds; abdomen not distended Percussion/Palpation: abdomen soft; abdomen nontender Neurologic normal touch/pain/proprioception and moves all extremities; no focal motor deficits Psychiatric A+Ox3, euthymic affect Lymphatic no cervical or axillary lymphadenopathy Discharge Data Allergies Allergy/AdvReac Type Severity Reaction Status Date / Time lisinopril Allergy Intermediate Cough Verified 03/08/22 21:43 morphine Allergy Intermediate Rash Verified 03/08/22 21:43 Sulfa (Sulfonamide Allergy Intermediate Nausea Verified 03/08/22 21:43 Antibiotics) Consultations 04/21/22 13:50 ED Decision to Admit Stat 04/21/22 13:58 Consult Orthopedic Surgery Routine Procedures Performed Operation Date: 04/22/22 08:00 Actual Procedures p Decompression Fusion L-2-L-3(Not Applicable) - Wale Tamayo DO Ordered Studies 04/22/22 [place] lumbar spine 2-3V Routine Hospital Course (1) Degenerative disc disease: (2) Back pain: This is a 72 yo F with PMHx of degnerative disc disease, herniated disc, back pain, HTN, HLD, hypothyroidism, vitamin D deficiency, prediabetes, CKD stage III, and other medical conditions listed below who presents to the ER with worsening back pain. POD#1 s/p lumbar decompression with bilateral medial facetectomies and foraminotomies L2-L3, posterior spinal fusion L2-L3. #3 placed posterior instrumentation L2-3 and interbody fusion L2-L3 In PACU postoperatively for management of hypotension, pain Per ortho for pain control, wound care, anticoagulation and activities Monitor H&H (EBL 75ml, hgb 13.4, continue incentive spirometry, PT/OT when appropriate) Complains to have some pain and will get PT and OT as per Ortho CBC and PRP remain unremarkable Has been getting physical therapy and Ortho cleared her from discharge Has minimal pain at the back without any radiation (3) Hypotension: Lumbar discShe is a status post patient and fusion L2-L3 She received total of 5.5 mg of Dilaudid and 100 mcg of IV clonidine per operatively Blood pressure was noted to be around systolic 80s following the procedure in PACU She received a total of 4 L of normal saline with improvement of blood pressure to around 100 She was saturating normally on room air but with the activity and movement the saturation was going down She will continue to have normal saline at a rate of 100 cc an hour and monitor for fluid overload She will need to be transferred to PCU for close monitoring at least for tonight Blood pressure remained stable more than 100 systolic Will be transferred to medical floor continuation of care Medically stable to be transferred to medical floor and to continue PT not already PT Blood pressure remains on the lower side but more than 100 without any symptoms with activity Will be discharged home this afternoon (4) HTN (hypertension): Hypotensive post-operatively. Hold losartan for now Will hold losartan for now (5) HLD (hyperlipidemia): Continue statin (6) Hypothyroid: Continue levothyroxine (7) Stage 3a chronic kidney disease (CKD): Stable. Continue to monitor with daily BMP CODE: Full code Dispo: Per primary service Total Time Total Time Spent Total Time Spent (In Minutes): 35 minutes Discharge Plan Discharge Items Patient Disposition: Home - Self-Care Reason For Visit: INTRACTABLE BACK PAIN Discharge Diagnosis: Lumbar disc herniation with radiculopathy s/p Decompression and Fusion Activity: As commented below Non-emergency contact: Primary Care Provider Call non-emergency contact if: you have any medication questions Follow-up/Referrals: Charlotte Tran MD [Primary Care Provider] - (Date & Time 04/29/2022 11:50 AM Provider Roxana Coleman Department Family [facility] ) Diet: Regular Addtl Attending Provider Instructions: Please take precautions to avoid fall Your lisinopril,the blood pressure medicine has been discontinued due to ongoing low blood pressure Please have regular follow-up with your primary care physician This medicine may need to be restarted down the line if the blood pressure goes high ACTIVITY RECOMMENDATIONS: SELF CARE INSTRUCTIONS AFTER THORACIC/LUMBAR FUSIONS 1. You may walk to your tolerance. It is good exercise for your legs and back. Expect some back and intermittent leg aches and pains. 2. You may perform "counter-top" level activities (make a sandwich, ketty with a project, etc.). 3. No bending or lifting of more than 10 pounds or back twisting of any nature (roll like a log when turning in bed). 4. You may ride in a car for 20-30 minutes at a time. No driving until after your first visit with your doctor. 5. Frequent changes of position and restricting sitting to 30 minutes at a time will help limit the amount of back spasms and stiffness you may experience. 6. You may discontinue the use of ambulatory aids (cane, crutches, etc.) once your strength and confidence allow. 7. You may gear inspector the shower and let water strike your incision when you arrive home at least once daily. Do not take a tub bath, sit in a hot tub or go into a swimming pool until after your first recheck in the office. SPECIAL CARE INSTRUCTIONS: VERY IMPORTANT TO READ AND REVIEW A. Your surgical incision has been closed with a cosmetic suture under the skin that will dissolve in about 6 weeks. In 14 days, you can use a pair of clean scissors and cut the suture that is left outside of the skin at the ends of your incision. 1. The small skin tapes can be removed 7 days after surgery if they have not fallen off by that point. 2. You may keep the wound open to air as much as possible to promote healing after post-op day number 5 unless told otherwise by your doctor. 3. If you think the wound looks like it is becoming infected (redness or worsening drainage) and/or you are experiencing fever, chill or worsening back pain and muscle spasms, contact the office so that we may evaluate you as soon as possible. B. Complications are uncommon, but please contact us if you have any signs or symptoms of: 1. wound infection (fever higher than 102.5 degrees F, redness, separation of wound, drainage, or increasing pain from the incision) 2. blood clots in legs (pain, swelling, redness and warmth in legs) 3. urinary tract infection (fever higher than 102.5 degrees F, burning upon urination or increased frequency of urination) 4. nerve problems (inability to walk on your toes or heels, numbness, loss of bowel or bladder control) 5. any other symptoms that concern you C. Please call the office at if you have any concerns or questions about your operation or recovery. D. No smoking! Smoking drastically decreases the chance of a solid fusion. E. Do not take any anti-inflammatory medications (Indocin, Advil, Motrin, Aspirin, Naprosyn, etc.) as these may inhibit the chance of a solid fusion. Tylenol is okay to take for pain. MANAGING PAIN AFTER SPINAL SURGERY 1. Narcotic medication is intended for short-term use and will be provided for surgical pain. Surgical pain usually lasts for a period of 4-6 weeks. Narcotic medication includes Percocet, Vicodin, Darvocet, Tylenol #3 or Lortab. 2. Longer-term pain is more appropriately treated with non-narcotic medication such as Tylenol ES. 3. Muscle spasm is not appropriately treated with narcotics. Muscle relaxers such as Soma, Flexeril or Skelaxin can be used along with Tylenol ES. 4. Remember that we all live with some "aches and pains". This is not unusual or uncommon after an injury or as we get older. a. Back pain is expected and may include muscle spasms for 4 to 6 weeks after surgery. The pain should gradually improve. If the pain worsens for no apparent reason, please contact the office. b. Intermittent leg pain may also be experienced and should not be concerned about unless it worsens for no apparent reason. If so, please contact the office. 5. We will provide appropriate medication within the normal guidelines of their prescribed use. We will also be very cautious and aware of potential abuse and extended duration of patients' medication needs. a. Pain medications are for your comfort and to assist with sleep and rest so that the tissue can heal. They are not provided in order to return to normal activity and should not be used through the day. To do so or worsening pain at night can result from ongoing tissue damage and development of tolerance to the prescribed medicine. 6. Please allow 2-3 days to process refills. Prescriptions will not be mailed but must be picked up at the office. FOLLOW UP VISIT: Keep your scheduled follow-up appointment. Any questions, please call the office at . Pending Studies at Discharge: No Stand-Alone Forms: My [facility] [employer], Smoking Cessation Medications and DC Order Prescriptions: New tramadol 50 mg tablet 50 mg PO Q6H PRN (Reason: pain, moderate) Qty: 30 0RF oxycodone 5 mg tablet 5 mg PO Q6H PRN (Reason: pain, severe) Qty: 30 0RF Continued trazodone 100 mg Tablet 100 mg PO HS PRN (Reason: Insomnia) levothyroxine 88 mcg tablet 88 mcg PO QAM albuterol sulfate 90 mcg/actuation HFA aerosol inhaler 2 puff Inhalation QID PRN (Reason: Shortness Of Breath) ascorbic acid (vitamin C) [Vitamin C] 1,000 mg tablet 1,000 mg PO DAILY atorvastatin 20 mg tablet 20 mg PO DAILY aspirin [Dyana Low Dose Aspirin] 81 mg tablet,delayed release (DR/EC) 81 mg PO DAILY baclofen 20 mg tablet 20 mg PO TID PRN (Reason: muscle spasms) cyanocobalamin (vitamin B-12) [Vitamin B-12] 500 mcg tablet 500 mcg PO DAILY hydroxyzine HCl 25 mg tablet 25 mg PO BID PRN (Reason: Anxiety) fluoxetine 20 mg capsule 60 mg PO DAILY solifenacin 5 mg tablet 5 mg PO DAILY melatonin 10 mg tablet 10 mg PO DAILY Discontinued losartan 25 mg tablet 25 mg PO DAILY Discharge Orders: Discharge Order (Routine); Ordered 04/25/22 Ordered By: Wale Gay/Other Patient Handouts: Spinal Fusion, Lumbar Fusion Dc Admission Data Admit Date/Time: 04/21/22 13:58 Attending Provider: Alen Avelar Admit Provider: David Lo Primary Care Provider: Charlotte Tran Other Providers: Marian Johnson ; David Lo ; Wale Tamayo Other Interventions: Discharge Summary Assessment (RN) Last Done: 04/25/22 10:37
== END 2022-04-25 14:25 | disposition home or self-care (01) | DRG 455 ==
LOC: ED 11:00 → SUATTDRO 13:58 → 3N 13:58 → 2S 04-22 19:53
DX: E03.9 Hypothyroidism, unspecified; E55.9 Vitamin D deficiency, unspecified; M51.16 Intervertebral disc disorders with radiculopathy, lumbar region; R33.9 Retention of urine, unspecified; E78.5 Hyperlipidemia, unspecified; R73.03 Prediabetes; Z88.2 Allergy status to sulfonamides; I95.81 Postprocedural hypotension; N18.31 Chronic kidney disease, stage 3a; I12.9 Hypertensive chronic kidney disease with stage 1 through stage 4 chronic kidney disease, or unspecified chronic kidney disease; Z79.82 Long term (current) use of aspirin; M48.061 Spinal stenosis, lumbar region without neurogenic claudication; Z88.5 Allergy status to narcotic agent; R29.6 Repeated falls; Z79.890 Hormone replacement therapy

== ENCOUNTER 2024-03-14 17:37 | Inpatient (IN) ==
[2024-03-14] MEDS ORDERED: Patient's HEIGHT &/or WEIGHT Needed STA (17:38)
[2024-03-14 18:20] LABS: Basophils # (auto) 0.04 K/uL (0.00-0.20); Basophils % (auto) 0.2 %; Hematocrit (blood only) 45.5 % (37.0-47.0); Hemoglobin 14.9 g/dl (12.0-16.0); Immature Granulocytes # (auto) 0.08 K/uL (0.01-0.20); Immature Granulocytes % (auto) 0.5 %; Lymphocytes # (auto) 1.01 K/uL (1.20-3.40); Lymphocytes % (auto) 5.9 %; Mean Corpuscular Hemoglobin 30.2 pg (25.0-34.0); Mean Corpuscular Hgb Conc 32.7 g/dL (32.0-36.0); Mean Corpuscular Volume 92.3 fL (80.0-100.0); Mean Platelet Volume 9.3 fL (9.4-12.4); Monocytes # (auto) 1.61 K/uL (0.11-0.59); Monocytes % (auto) 9.4 %; Neutrophils # (auto) 14.41 K/uL (1.40-6.50); Platelet Count 216 K/uL (130-400); RDW Coefficient of Variation 12.6 % (11.5-14.5); Red Blood Count 4.93 M/uL (4.20-5.40); White Blood Count 17.15 K/ul (4.8-10.8)
[2024-03-14 18:32] LABS: Alanine Aminotransferase 28 U/L (7-52); Alkaline Phosphatase 75 U/L (34-104); Anion Gap 7 (3-11); Aspartate Aminotransferase 34 U/L (13-39); BUN Creatinine Ratio 14.7 (10-20); Bilirubin,Total 0.8 mg/dl (0.2-1.0); Blood Urea Nitrogen 15 mg/dl (6-23); Carbon Dioxide 27 mmol/L (21-32); Chloride 98 mmol/L (98-107); Est GFR (African American) 62.3 ml/min; Est GFR (Non-African American) 53.8 ml/min; Glucose 123 mg/dl (70-99(Fasting)); Potassium 3.6 mmol/L (3.5-5.1); Sodium 132 mmol/L (136-145)
[2024-03-14 18:56] LABS: Partial Thromboplastin Time 27 Seconds (21-31); Prothrombin Time 10.7 Seconds (9.0-12.0)
--- NOTE | 2024-03-14 19:07 | XRay Report ---
XR chest 1V not portable HISTORY: cough COMPARISON: Chest 07/24/2018. FINDINGS: No pneumothorax. No pleural effusions. The cardiac silhouette remains top normal in size. T he lungs are clear. No evidence for pulmonary edema. Lumbar spinal fusion hardware is noted. A tortuo us thoracic aorta, unchanged. No acute fractures. IMPRESSION: No acute process. ACT 112: Negative or not required by law. Electronically signed by: Jesus Hubbard M.D. 03/14/2024 7:05 PM
[2024-03-14 19:36] LABS: Influenza A virus by PCR Negative (Neg); Influenza B virus by PCR Negative (Neg); RSV by PCR Negative (Neg); SARS CoV2 RNA(COVID-19) Ceph POSITIVE (Negative)
--- NOTE | 2024-03-14 19:46 | Emergency Department Note ---
Impression & Plan COVID, Hypoxia, Acute UTI ED Provider Note Diagnosis: COVID, hypoxia Disposition: Admission CHIEF COMPLAINT: Generalized weakness HPI: Patient is 73-year-old female presenting with generalized weakness. Patient states that she has been having symptoms for 3 to 4 days time. Patient has been having intermittent headaches cough sinus pressure. Patient having episodes of nausea. Patient denies any abdominal pain or urinary symptoms. Patient denies any sick contacts. PAST MEDICAL HISTORY: See Below PAST SURGICAL HISTORY: See Below SOCIAL HISTORY: See Below HOME MEDICATIONS: See Below ALLERGIES: See Below VITALS: See Below PHYSICAL EXAMINATION: GENERAL: Well appearing, well nourished, NAD, non-toxic. EYE EXAM: Normal conjunctiva. OROPHARYNX: Moist mucus membranes. Grossly normal dentition. NECK: Supple, LUNGS: Clear to auscultation. Normal chest wall mechanics. HEART: NSR ABDOMEN: Abdomen soft, non-tender, normo-active bowel sounds, no masses, no rebound or guarding BACK: No CVA TTP. SKIN: No rashes and no bruising. UPPER EXTREMITIES: Upper extremities are grossly normal LOWER EXTREMITIES: Grossly normal, no edema. NEURO EXAM: A&O x3,, normal speech, moves all 4 extremities PSYCH: Cooperative MEDICAL DECISION MAKING: Reviewed external documents: History obtained from: Patient ER Course: Patient 73-year-old female presenting with complaint of sinus pressure cough intermittent headaches nausea vomiting. Patient denies any abdominal pain. Patient denies any sick contacts. Patient found to have a leukocytosis. Patient given IV fluids. Patient's lactate was not elevated. Patient's COVID testing found to be positive. Patient during ER course became hypoxic and placed on 4 L nasal cannula oxygen support. Patient at that time was given Decadron. Patient's urinalysis is positive for UTI and was given dose of Rocephin. Patient's case discussed with hospital service for admission. Labs (independently interpreted) are significant for: Leukocytosis Imaging results (independently interpreted): Chest x-ray clear EKG interpretation (independently interpreted): Medications given: Decadron, normal saline, Rocephin Consultants: Hospitalist Triage Nursing notes reviewed and agree them. Vital Signs: reviewed and remarkable for: Hypoxia Past Med/Surg History Problem List Acute UTI (Acute) Hypoxia (Acute) COVID (Acute) Hypotension Acute herniated disc (Acute) Sciatica associated with disorder of lumbar spine (Acute) Vitamin D deficiency Stage 3a chronic kidney disease (CKD) HTN (hypertension) Prediabetes HLD (hyperlipidemia) Hypothyroid Degenerative disc disease Back pain History of bladder surgery Medical History Blepharochalasis of both upper eyelids Concussion Degenerative disc disease HLD (hyperlipidemia) HTN (hypertension) Hypothyroid MDD (major depressive disorder) Paroxysmal SVT (supraventricular tachycardia) Prediabetes Stage 3a chronic kidney disease (CKD) Surgical History History of bladder surgery Hx of appendectomy Hx of cholecystectomy Hx of hysterectomy Family History Mother Cancer Diabetes Father Heart disease Brother Diabetes Grandmother (Maternal) Diabetes Grandfather (Maternal) Diabetes Social History Smoking Status: Never smoker Hx Alcohol Use: No Hx Substance Use: No Preferred Language: Malay Communication Ability: Effective Visual Impairment: No Limitations Hearing Ability: Normal Seat Cover Maker Required: No Beliefs That Will Affect Care: None marital status: / Current Living Situation: Alone Feels Safe at Home: Yes Assistive Devices: None Allergies Allergies Allergy/AdvReac Type Severity Reaction Status Date / Time lisinopril Allergy Intermediate Cough Verified 03/08/22 21:43 morphine Allergy Intermediate Rash Verified 03/08/22 21:43 Sulfa (Sulfonamide Allergy Intermediate Nausea Verified 03/08/22 21:43 Antibiotics) Home Meds Home Medications Medication Instructions Recorded Confirmed albuterol sulfate 90 mcg/actuation 2 puff inhalation QID PRN 07/24/18 04/21/22 aerosol inhaler Shortness Of Breath levothyroxine 88 mcg tablet 88 mcg PO QAM 07/24/18 04/21/22 trazodone 100 mg tablet 100 mg PO HS PRN Insomnia 11/22/18 04/21/22 ascorbic acid (vitamin C) 1,000 mg 1,000 mg PO DAILY 04/21/22 04/21/22 tablet (Vitamin C) aspirin 81 mg tablet,delayed 81 mg PO DAILY 04/21/22 04/21/22 release (Dayna Low Dose Aspirin) atorvastatin 20 mg tablet 20 mg PO DAILY 04/21/22 04/21/22 baclofen 20 mg tablet 20 mg PO TID PRN muscle spasms 04/21/22 04/21/22 cyanocobalamin (vitamin B-12) 500 500 mcg PO DAILY 04/21/22 04/21/22 mcg tablet (Vitamin B-12) fluoxetine 20 mg capsule 60 mg PO DAILY 04/21/22 04/21/22 hydroxyzine HCl 25 mg tablet 25 mg PO BID PRN Anxiety 04/21/22 04/21/22 melatonin 10 mg tablet 10 mg PO DAILY 04/21/22 04/21/22 solifenacin 5 mg tablet 5 mg PO DAILY 04/21/22 04/21/22 Previous Rx's Medication Instructions Recorded oxycodone 5 mg tablet 5 mg PO Q6H PRN pain, severe #30 04/25/22 tabs tramadol 50 mg tablet 50 mg PO Q6H PRN pain, moderate 04/25/22 #30 tabs Results & Data (ED) Vital Signs Vital Signs - 24 hr 03/14/24 17:38 03/14/24 19:25 03/14/24 19:27 Temperature 36.6 C Temperature Source Oral Pulse Rate 85 77 Pulse Rate from SpO2 Sensor Respiratory Rate 18 Blood Pressure 106/72 116/66 Blood Pressure Mean 83 94 Pulse Oximetry 96 Oxygen Delivery Method Sepsis Recent Fever Within 48 Hours No Sepsis New/Unexplained Change in Mental Status N/A Sepsis Action Taken by Nursing No Action Required Oxygen Flow Rate - Titration Pulse Oximetry Post Tiitration 03/14/24 19:30 03/14/24 19:57 03/14/24 20:27 Temperature Temperature Source Pulse Rate 75 74 76 Pulse Rate from SpO2 Sensor 75 74 76 Respiratory Rate 22 22 22 Blood Pressure 117/65 113/56 L Blood Pressure Mean 82 75 Pulse Oximetry 92 94 82 L Oxygen Delivery Method Room Air Room Air Sepsis Recent Fever Within 48 Hours Sepsis New/Unexplained Change in Mental Status Sepsis Action Taken by Nursing Oxygen Flow Rate - Titration Pulse Oximetry Post Tiitration 03/14/24 20:30 03/14/24 20:34 Temperature Temperature Source Pulse Rate Pulse Rate from SpO2 Sensor Respiratory Rate Blood Pressure 117/65 Blood Pressure Mean 88 Pulse Oximetry 81 L Oxygen Delivery Method Room Air Sepsis Recent Fever Within 48 Hours Sepsis New/Unexplained Change in Mental Status Sepsis Action Taken by Nursing Oxygen Flow Rate - Titration 4 Pulse Oximetry Post Tiitration 91 Laboratory Data 03/14/24 17:57 03/14/24 17:57 Lab Results 03/14/24 03/14/24 03/14/24 Range/Units 17:57 20:04 20:07 WBC 17.15 H (4.8-10.8) K/ul RBC 4.93 (4.20-5.40) M/uL Hgb 14.9 (12.0-16.0) g/dl Hct 45.5 (37.0-47.0) % MCV 92.3 (80.0-100.0) fL MCH 30.2 (25.0-34.0) pg MCHC 32.7 (32.0-36.0) g/dL RDW Std Deviation 43.0 (36.4-46.3) fL RDW Coeff of Ruel 12.6 (11.5-14.5) % Plt Count 216 (130-400) K/uL MPV 9.3 L (9.4-12.4) fL Immature Gran % (Auto) 0.5 % Neut % (Auto) 84.0 % Lymph % (Auto) 5.9 % [place] % (Auto) 9.4 % Eos % (Auto) 0.0 % Baso % (Auto) 0.2 % Neut # (Auto) 14.41 H (1.40-6.50) K/uL Lymph # (Auto) 1.01 L (1.20-3.40) K/uL [place] # (Auto) 1.61 H (0.11-0.59) K/uL Eos # (Auto) 0.00 (0.00-0.50) K/uL Baso # (Auto) 0.04 (0.00-0.20) K/uL Immature Gran # (Auto) 0.08 (0.01-0.20) K/uL PT 10.7 (9.0-12.0) Seconds INR 1.0 (0.9-1.1) APTT 27 (21-31) Seconds PTT Ratio 1.0 Sodium 132 L (136-145) mmol/L Potassium 3.6 (3.5-5.1) mmol/L Chloride 98 (98-107) mmol/L Carbon Dioxide 27 (21-32) mmol/L Anion Gap 7 (3-11) BUN 15 (6-23) mg/dl Creatinine 1.02 (0.6-1.2) mg/dl Est Cr Clr Drug Dosing Not Reportable Est GFR ( Amer) 62.3 ml/min Est GFR (Non-Af Amer) 53.8 ml/min BUN/Creatinine Ratio 14.7 (10-20) Glucose 123 H (70-99(Fasting)) mg/dl Lactate 1.7 (0.4-2.0) mmol/L Calcium 9.0 (8.6-10.3) mg/dl Magnesium 1.8 (1.7-2.4) mg/dl Total Bilirubin 0.8 (0.2-1.0) mg/dl AST 34 (13-39) U/L ALT 28 (7-52) U/L Alkaline Phosphatase 75 (34-104) U/L Total Protein 8.0 (6.0-8.3) gm/dl Albumin 4.0 (3.4-5.0) gm/dl Globulin 4.0 (2.5-4.0) gm/dl Albumin/Globulin Ratio 1.0 (0.9-2) Urine Color Dark Yellow Urine Appearance Cloudy A (Clear) Urine pH 7.0 (4.5-7.5) Ur Specific [place] 1.019 (1.000-1.030) Urine Protein 2+ H (Negative) Urine Glucose (UA) Trace H (Negative) Urine Ketones 2+ H (Negative) Urine Blood 1+ H (Negative) Urine Nitrite Negative (Negative) Urine Bilirubin Negative (Negative) Urine Urobilinogen Negative (Negative) Ur Leukocyte Esterase Trace H (Negative) Urine WBC (Auto) 6-10 H (0-5) /hpf Urine RBC (Auto) >20 H (0-2) /hpf U Hyaline Cast (Auto) >20 H (0-2) /lpf U Epithel Cells (Auto) 11-20 H (0-2) /hpf Urine Bacteria (Auto) None Seen (None Seen) Urine Mucus Present A (None Prsent) SARS-CoV-2 (PCR) POSITIVE (Negative) Influenza Type A (PCR) Negative (Neg) Influenza Type B (PCR) Negative (Neg) RSV (RT-PCR) Negative (Neg) Administered Medications Discontinued Medications Albuterol (Albut/Ipratrop 3mg/0.5mg Neb 3 Ml Vial) 3 ml NEB NOW STA; Protocol Stop: 03/14/24 22:28 Last Admin: 03/14/24 22:48 Dose: 3 ml Documented By: FREDERICK Dexamethasone (Dexamethasone Sod Inj 4 Mg/Ml Vial) 8 mg IV NOW STA Stop: 03/14/24 20:38 Last Admin: 03/14/24 20:44 Dose: 8 mg Documented By: FREDERICK Sodium Chloride (Nss) 1,000 mls @ 999 mls/hr IV .Q1H1M ONE Stop: 03/14/24 20:44 Last Infusion: 03/14/24 22:30 Dose: Infused Documented By: Admin: 03/14/24 20:02 Dose: 999 mls/hr Documented By: FREDERICK Ceftriaxone Sodium (Rocephin) 1,000 mg in 50 mls @ 100 mls/hr IV NOW STA Stop: 03/14/24 21:15 Last Infusion: 03/14/24 22:30 Dose: Infused Documented By: Admin: 03/14/24 21:23 Dose: 100 mls/hr Documented By: FREDERICK Ondansetron HCl (Ondansetron Inj 2 Mg/Ml 2 Ml Vial) 4 mg IV NOW STA Stop: 03/14/24 19:45 Last Admin: 03/14/24 20:03 Dose: 4 mg Documented By: FREDERICK Imaging Data Radiologist's Impression: Chest X-Ray 03/14/24 17:44 XR chest 1V not portable HISTORY: cough COMPARISON: Chest 07/24/2018. FINDINGS: No pneumothorax. No pleural effusions. The cardiac silhouette remains top normal in size. The lungs are clear. No evidence for pulmonary edema. Lumbar spinal fusion hardware is noted. A tortuous thoracic aorta, unchanged. No acute fractures. IMPRESSION: No acute process. ACT 112: Negative or not required by law. Electronically signed by: Jesus Hubbard M.D. 03/14/2024 7:05 PM Discharge Plan Visit Data Chief Complaint: Hypotension Stated Complaint: CONGESTION, HEAD PAIN/ACHE, LOW BP, WEAKNESS ED Provider: Joshua Leon Discharge Problem: COVID, Hypoxia, Acute UTI Forms Stand Alone Forms: My [facility] Prescriptions Prescriptions: No Action trazodone 100 mg Tablet 100 mg PO HS PRN (Reason: Insomnia) levothyroxine 88 mcg tablet 88 mcg PO QAM albuterol sulfate 90 mcg/actuation HFA aerosol inhaler 2 puff Inhalation QID PRN (Reason: Shortness Of Breath) ascorbic acid (vitamin C) [Vitamin C] 1,000 mg tablet 1,000 mg PO DAILY atorvastatin 20 mg tablet 20 mg PO DAILY aspirin [Dyana Low Dose Aspirin] 81 mg tablet,delayed release (DR/EC) 81 mg PO DAILY baclofen 20 mg tablet 20 mg PO TID PRN (Reason: muscle spasms) cyanocobalamin (vitamin B-12) [Vitamin B-12] 500 mcg tablet 500 mcg PO DAILY hydroxyzine HCl 25 mg tablet 25 mg PO BID PRN (Reason: Anxiety) fluoxetine 20 mg capsule 60 mg PO DAILY solifenacin 5 mg tablet 5 mg PO DAILY melatonin 10 mg tablet 10 mg PO DAILY tramadol 50 mg tablet 50 mg PO Q6H PRN (Reason: pain, moderate) Qty: 30 0RF oxycodone 5 mg tablet 5 mg PO Q6H PRN (Reason: pain, severe) Qty: 30 0RF Referrals Referrals: Charlotte Tran MD [Outside Practitioners] -
[2024-03-14] MEDS: SODIUM CHLORIDE 0.9% 1,000 ML IV ONE (20:02)
[2024-03-14] MEDS: ONDANSETRON INJ 2 MG/ML 2 ML VIAL IV STA (20:03)
[2024-03-14 20:43] LABS: Appearance Urine Cloudy (Clear); Bacteria Urine Automated None Seen (None Seen); Bilirubin Urine Negative (Negative); Blood Urine 1+ (Negative); Cast Urine Automated >20 /lpf (0-2); Color Urine Dark Yellow; Glucose Urine UA Trace (Negative); Ketones Urine 2+ (Negative); Leukocyte Esterase Urine Trace (Negative); Mucus Urine Present (None Prsent); Nitrite Urine Negative (Negative); Protein Urine 2+ (Negative); RBC Urine Automated >20 /hpf (0-2); Specific Gravity Urine 1.019 (1.000-1.030); Urobilinogen Urine Negative (Negative)
[2024-03-14] MEDS: DEXAMETHASONE SOD INJ 4 MG/ML VIAL IV STA (20:44)
[2024-03-14] MEDS: cefTRIAXone SODIUM 1,000 MG/50 ML BAG IV STA (21:23)
[2024-03-14 22:45] LABS: Magnesium 1.8 mg/dl (1.7-2.4)
[2024-03-14] MEDS: ALBUT/IPRATROP 3MG/0.5MG NEB 3 ML VIAL NEB STA (22:48)
[2024-03-14 23:05] LABS: Base Excess ABG 1.1 mEq/L (-9-1.8); HCO3 ABG 25 mmol/L (19-24); Oxygen Saturation ABG 99.5 % (90-95); PCO2 ABG 37 mmHg (35-46); PO2 ABG 108 mmHg (80-95); pH ABG 7.44 (7.35-7.45)
[2024-03-14 23:09] LABS: Allen Test Pos (Pos)
[2024-03-14] MEDS: OPTIRAY 320 125ml IV ONE (23:38)
--- NOTE | 2024-03-14 23:38 | History & Physical Report ---
Date of Service March 14, 2024 Assessment & Plan (1) Acute hypoxemic respiratory failure: Plan: Secondary to severe COVID-19 pneumonia/complicated bronchitis no sepsis for now hypertension, stable hyperlipidemia, on statin Rx hypothyroidism, euthyroid as of today's TSH prediabetes, hemoglobin A1c of 5.5 from 2021 Thyroid nodule Admit to medical telemetry Supplemental O2 Decadron and remdesivir for severe COVID-19 pneumonia Doxycycline for complicated bronchitis Pulmonary consult revealed improvement Update hemoglobin A1c Outpatient ENT follow-up for thyroid nodule DVT prophylaxis. Lovenox subcu Full code Text document was generated using [email or web address] voice recognition software. It may contain grammatical or spelling errors. Kindly contact undersigned for clarification of any documentation item in question. History of Present Illness Chief Complaint: Worsening cough, SOB Primary Care Provider: Roxana Coleman DO History obtained from patient and records. Medical history significant for hypertension, hyperlipidemia, IDRIS, hypothyroidism, prediabetes, fibromyalgia, mood disorder. Last confinement April 2022 for lumbar disc herniation status post surgery. Marked postop hypotension. Few days history of sinus congestion followed by junky cough symptoms associated with headache and nausea. Pleuritic chest pain. Not sure about sick contacts. Lowest O2 sats of 80s documented at the ER. Decadron and ceftriaxone administered at the ER. Medical History as above Surgical History : Neck surgery, carpal tunnel surgeries, dental surgery, BTL, eyelid surgery, appendectomy, cholecystectomy, bladder defect repair, KO Family History : Breast cancer, colon cancer, DM, heart disease, stroke Personal/Social history : Non-smoker, no EtOH intake, retired nurse aide Allergies Allergy/AdvReac Type Severity Reaction Status Date / Time lisinopril Allergy Intermediate Cough Verified 03/08/22 21:43 morphine Allergy Intermediate Rash Verified 03/08/22 21:43 Sulfa (Sulfonamide Allergy Intermediate Nausea Verified 03/08/22 21:43 Antibiotics) Home Medications Medication Instructions Recorded Confirmed Type levothyroxine 88 mcg tablet 88 mcg PO QAM 07/24/18 03/15/24 History trazodone 100 mg tablet 100 mg PO HS PRN Insomnia 11/22/18 03/15/24 History ascorbic acid (vitamin C) 1,000 mg 1,000 mg PO DAILY 04/21/22 03/15/24 History tablet (Vitamin C) aspirin 81 mg tablet,delayed 81 mg PO DAILY 04/21/22 03/15/24 History release (Dyana Low Dose Aspirin) atorvastatin 20 mg tablet 20 mg PO DAILY 04/21/22 03/15/24 History baclofen 20 mg tablet 20 mg PO TID PRN muscle spasms 04/21/22 03/15/24 History cyanocobalamin (vitamin B-12) 500 500 mcg PO DAILY 04/21/22 03/15/24 History mcg tablet (Vitamin B-12) fluoxetine 20 mg capsule 60 mg PO DAILY 04/21/22 03/15/24 History hydroxyzine HCl 25 mg tablet 25 mg PO BID PRN Anxiety 04/21/22 03/15/24 History melatonin 10 mg tablet 10 mg PO DAILY PRN Insomnia 04/21/22 03/15/24 History solifenacin 5 mg tablet 5 mg PO DAILY 04/21/22 03/15/24 History Past Med/Surg History Problem List Acute hypoxemic respiratory failure Acute UTI (Acute) Hypoxia (Acute) COVID (Acute) Hypotension Acute herniated disc (Acute) Sciatica associated with disorder of lumbar spine (Acute) Vitamin D deficiency Stage 3a chronic kidney disease (CKD) HTN (hypertension) Prediabetes HLD (hyperlipidemia) Hypothyroid Degenerative disc disease Back pain History of bladder surgery Medical History Blepharochalasis of both upper eyelids Concussion Degenerative disc disease HLD (hyperlipidemia) HTN (hypertension) Hypothyroid MDD (major depressive disorder) Paroxysmal SVT (supraventricular tachycardia) Prediabetes Stage 3a chronic kidney disease (CKD) Surgical History History of bladder surgery Hx of appendectomy Hx of cholecystectomy Hx of hysterectomy Family History Mother Cancer Diabetes Father Heart disease Brother Diabetes Grandmother (Maternal) Diabetes Grandfather (Maternal) Diabetes Social History Smoking Status: Never smoker Hx Alcohol Use: No Hx Substance Use: No Preferred Language: Amharic Communication Ability: Effective Visual Impairment: No Limitations Hearing Ability: Normal Customer Experience Manager Required: No Beliefs That Will Affect Care: None marital status: / Current Living Situation: Alone Feels Safe at Home: Yes Safety Concerns: Feels Safe At This Time Assistive Devices: None Review of Systems Review of Systems: As per HPI, all other systems reviewed and negative Physical Exam Physical Exam: GENERAL: Comfortable, pleasant, obese, no respiratory distress SKIN: Normal color, warm HEENT: [place] palpebral conjunctivae, no ptosis, dry buccal mucosa, nasal cannula in place NECK : Supple, no tenderness CHEST : Decreased breath sounds, no tenderness HEART : RRR, no obvious murmurs ABDOMEN: Some distention, nontender EXTREMITIES : No LE swelling/tenderness, no other conspicuous deformities noted NEUROLOGIC : Coherent, no facial asymmetry, no other gross focality Results & Data Results & Data Vital Signs (Past 12 Hours) Vital Signs Temp Pulse Resp BP Pulse Ox O2 Del Method O2 Flow Rate 03/14/24 22:39 65 18 94 Nasal Cannula 4 03/14/24 22:30 125/75 03/14/24 22:00 73 18 130/64 03/14/24 21:33 70 18 121/59 L 95 Nasal Cannula 4 03/14/24 21:06 71 22 94 Nasal Cannula 4 03/14/24 21:00 133/76 03/14/24 20:34 81 L Room Air 03/14/24 20:30 117/65 03/14/24 20:27 76 22 82 L 03/14/24 19:57 74 22 113/56 L 94 Room Air 03/14/24 19:30 75 22 117/65 92 Room Air 03/14/24 19:27 77 03/14/24 19:25 116/66 03/14/24 17:38 36.6 C 85 18 106/72 96 Laboratory Results Laboratory Results WBC 17.15 K/ul (4.8-10.8) H 03/14/24 17:57 RBC 4.93 M/uL (4.20-5.40) 03/14/24 17:57 Hgb 14.9 g/dl (12.0-16.0) 03/14/24 17:57 Hct 45.5 % (37.0-47.0) 03/14/24 17:57 MCV 92.3 fL (80.0-100.0) 03/14/24 17:57 MCH 30.2 pg (25.0-34.0) 03/14/24 17:57 MCHC 32.7 g/dL (32.0-36.0) 03/14/24 17:57 RDW Std Deviation 43.0 fL (36.4-46.3) 03/14/24 17:57 RDW Coeff of [place] 12.6 % (11.5-14.5) 03/14/24 17:57 Plt Count 216 K/uL (130-400) 03/14/24 17:57 MPV 9.3 fL (9.4-12.4) L 03/14/24 17:57 Immature Gran % (Auto) 0.5 % 03/14/24 17:57 Neut % (Auto) 84.0 % 03/14/24 17:57 Lymph % (Auto) 5.9 % 03/14/24 17:57 [place] % (Auto) 9.4 % 03/14/24 17:57 Eos % (Auto) 0.0 % 03/14/24 17:57 Baso % (Auto) 0.2 % 03/14/24 17:57 Neut # (Auto) 14.41 K/uL (1.40-6.50) H 03/14/24 17:57 Lymph # (Auto) 1.01 K/uL (1.20-3.40) L 03/14/24 17:57 [place] # (Auto) 1.61 K/uL (0.11-0.59) H 03/14/24 17:57 Eos # (Auto) 0.00 K/uL (0.00-0.50) 03/14/24 17:57 Baso # (Auto) 0.04 K/uL (0.00-0.20) 03/14/24 17:57 Immature Gran # (Auto) 0.08 K/uL (0.01-0.20) 03/14/24 17:57 PT 10.7 Seconds (9.0-12.0) 03/14/24 17:57 INR 1.0 (0.9-1.1) 03/14/24 17:57 APTT 27 Seconds (21-31) 03/14/24 17:57 PTT Ratio 1.0 03/14/24 17:57 ABG pH 7.44 (7.35-7.45) 03/14/24 22:57 ABG pCO2 37 mmHg (35-46) 03/14/24 22:57 ABG pO2 108 mmHg (80-95) H 03/14/24 22:57 ABG HCO3 25 mmol/L (19-24) H 03/14/24 22:57 ABG O2 Saturation 99.5 % (90-95) H 03/14/24 22:57 ABG Base Excess 1.1 mEq/L (-9-1.8) 03/14/24 22:57 [place] Test Pos (Pos) 03/14/24 22:57 Oxygen Given ROOM AIR 03/14/24 22:57 Sodium 132 mmol/L (136-145) L 03/14/24 17:57 Potassium 3.6 mmol/L (3.5-5.1) 03/14/24 17:57 Chloride 98 mmol/L (98-107) 03/14/24 17:57 Carbon Dioxide 27 mmol/L (21-32) 03/14/24 17:57 Anion Gap 7 (3-11) 03/14/24 17:57 BUN 15 mg/dl (6-23) 03/14/24 17:57 Creatinine 1.02 mg/dl (0.6-1.2) 03/14/24 17:57 Est Cr Clr Drug Dosing Not Reportable 03/14/24 17:57 Est GFR ( Amer) 62.3 ml/min 03/14/24 17:57 Est GFR (Non-Af Amer) 53.8 ml/min 03/14/24 17:57 BUN/Creatinine Ratio 14.7 (10-20) 03/14/24 17:57 Glucose 123 mg/dl (70-99(Fasting)) H 03/14/24 17:57 Lactate 1.7 mmol/L (0.4-2.0) 03/14/24 20:04 Calcium 9.0 mg/dl (8.6-10.3) 03/14/24 17:57 Magnesium 1.8 mg/dl (1.7-2.4) 03/14/24 17:57 Total Bilirubin 0.8 mg/dl (0.2-1.0) 03/14/24 17:57 AST 34 U/L (13-39) 03/14/24 17:57 ALT 28 U/L (7-52) 03/14/24 17:57 Alkaline Phosphatase 75 U/L (34-104) 03/14/24 17:57 Total Protein 8.0 gm/dl (6.0-8.3) 03/14/24 17:57 Albumin 4.0 gm/dl (3.4-5.0) 03/14/24 17:57 Globulin 4.0 gm/dl (2.5-4.0) 03/14/24 17:57 Albumin/Globulin Ratio 1.0 (0.9-2) 03/14/24 17:57 Urine Color Dark Yellow 03/14/24 20:07 Urine Appearance Cloudy (Clear) A 03/14/24 20:07 Urine pH 7.0 (4.5-7.5) 03/14/24 20:07 Ur Specific [place] 1.019 (1.000-1.030) 03/14/24 20:07 Urine Protein 2+ (Negative) H 03/14/24 20:07 Urine Glucose (UA) Trace (Negative) H 03/14/24 20:07 Urine Ketones 2+ (Negative) H 03/14/24 20:07 Urine Blood 1+ (Negative) H 03/14/24 20:07 Urine Nitrite Negative (Negative) 03/14/24 20:07 Urine Bilirubin Negative (Negative) 03/14/24 20:07 Urine Urobilinogen Negative (Negative) 03/14/24 20:07 Ur Leukocyte Esterase Trace (Negative) H 03/14/24 20:07 Urine WBC (Auto) 6-10 /hpf (0-5) H 03/14/24 20:07 Urine RBC (Auto) >20 /hpf (0-2) H 03/14/24 20:07 U Hyaline Cast (Auto) >20 /lpf (0-2) H 03/14/24 20:07 U Epithel Cells (Auto) 11-20 /hpf (0-2) H 03/14/24 20:07 Urine Bacteria (Auto) None Seen (None Seen) 03/14/24 20:07 Urine Mucus Present (None Prsent) A 03/14/24 20:07 SARS-CoV-2 (PCR) POSITIVE (Negative) 03/14/24 17:57 Influenza Type A (PCR) Negative (Neg) 03/14/24 17:57 Influenza Type B (PCR) Negative (Neg) 03/14/24 17:57 RSV (RT-PCR) Negative (Neg) 03/14/24 17:57 Impressions Chest X-Ray 03/14/24 17:44 XR chest 1V not portable HISTORY: cough COMPARISON: Chest 07/24/2018. FINDINGS: No pneumothorax. No pleural effusions. The cardiac silhouette remains top normal in size. The lungs are clear. No evidence for pulmonary edema. Lumbar spinal fusion hardware is noted. A tortuous thoracic aorta, unchanged. No acute fractures. IMPRESSION: No acute process. ACT 112: Negative or not required by law. Electronically signed by: Jesus Hubbard M.D. 03/14/2024 7:[address] chest: 1. No pulmonary embolus is visualized. 2. Trace bibasilar pleural effusions with minimal subsegmental atelectasis in the dependent lung bases. Lungs are otherwise clear. 3. Heterogeneous left thyroid nodule measures 2.0 cm, grossly stable from prior examination. Recommend further correlation with thyroid ultrasound, and this may be performed on a nonemergent basis. Diagnostic Findings EKG as per my interpretation : Rate 80, NSR, RAD, septal infarct, nonspecific T wave abnormalities
[2024-03-14] MEDS ORDERED: MELATONIN 3 MG TAB PO PRN (23:45)
[2024-03-15] MEDS: DOXYCYCLINE HYCLATE 100 MG in DEXTROSE 5% MINI-B 100 ML IV STA (00:38)
[2024-03-15] MEDS: MAGNESIUM SULFATE / D5W 1 GM/100 ML BAG IV ONE (00:39)
--- NOTE | 2024-03-15 01:25 | CT Scan Report ---
Exam(s): CTA CHEST IV Amt: 116 ml opti 320 EXAM: CT Angiography Chest With Intravenous Contrast CLINICAL HISTORY: Reason for exam: cp, low o2. TECHNIQUE: Axial computed tomographic angiography images of the chest with intravenous contrast. CTDI is 23.37 mGy and DLP is 707.84 mGy-cm. Automated exposure control was utilized for the study. A dose lowering technique was utilized adhering to the principles of ALARA. MIP reconstructed images were created and reviewed. COMPARISON: 07/24/18 FINDINGS: Pulmonary arteries: Unremarkable. No pulmonary embolus is visualized. Aorta: Thoracic aorta is tortuous without aneurysm or dissection, unchanged. Lungs: See below. Pleural space: Trace bibasilar pleural effusions with minimal subsegmental atelectasis in the dependent lung bases. Lungs are otherwise clear. No pneumothorax. Heart: Unremarkable. No cardiomegaly. No significant pericardial effusion. No evidence of RV dysfunction. Thyroid: Heterogeneous left thyroid nodule measures 2.0 cm, grossly stable from prior examination. Recommend further correlation with thyroid ultrasound, and this may be performed on a nonemergent basis. Bones/joints: No acute fracture. No dislocation. Soft tissues: Unremarkable. Lymph nodes: Unremarkable. No enlarged lymph nodes. IMPRESSION: 1. No pulmonary embolus is visualized. 2. Trace bibasilar pleural effusions with minimal subsegmental atelectasis in the dependent lung bases. Lungs are otherwise clear. 3. Heterogeneous left thyroid nodule measures 2.0 cm, grossly stable from prior examination. Recommend further correlation with thyroid ultrasound, and this may be performed on a nonemergent basis. Electronically signed by: Joseph Landa MD 03/15/24 01:24 AM
[2024-03-15 02:28] LABS: Thyroid Stimulating Hormone 2.748 uIu/ml (0.300-4.500)
[2024-03-15] MEDS: REMDESIVIR 200 MG in SODIUM CHLORIDE 0.9% 210 ML IV STA (02:54)
[2024-03-15 07:03] LABS: Basophils # (auto) 0.01 K/uL (0.00-0.20); Basophils % (auto) 0.1 %; Hematocrit (blood only) 41.9 % (37.0-47.0); Hemoglobin 13.8 g/dl (12.0-16.0); Immature Granulocytes # (auto) 0.05 K/uL (0.01-0.20); Immature Granulocytes % (auto) 0.5 %; Lymphocytes # (auto) 0.69 K/uL (1.20-3.40); Lymphocytes % (auto) 6.9 %; Mean Corpuscular Hemoglobin 30.3 pg (25.0-34.0); Mean Corpuscular Hgb Conc 32.9 g/dL (32.0-36.0); Mean Corpuscular Volume 92.1 fL (80.0-100.0); Mean Platelet Volume 9.6 fL (9.4-12.4); Monocytes # (auto) 0.32 K/uL (0.11-0.59); Monocytes % (auto) 3.2 %; Neutrophils % (auto) 89.3 %; Platelet Count 184 K/uL (130-400); RDW Coefficient of Variation 12.5 % (11.5-14.5); RDW Standard Deviation 42.3 fL (36.4-46.3); Red Blood Count 4.55 M/uL (4.20-5.40); White Blood Count 10.07 K/ul (4.8-10.8)
[2024-03-15 07:05] LABS: Estimated Average Glucose 123 mg/dl; Hemoglobin A1C 5.9 % (4.5-5.6)
[2024-03-15] MEDS: LEVOTHYROXINE SODIUM 88 MCG TABLET PO SCH (07:20)
[2024-03-15 07:29] LABS: Albumin Level 3.6 gm/dl (3.4-5.0); BUN Creatinine Ratio 17.6 (10-20); Bilirubin,Total 0.4 mg/dl (0.2-1.0); Calcium 8.2 mg/dl (8.6-10.3); Creatinine Clr Calc Pharmacy 59.5 ml/min; Est GFR (African American) 91.9 ml/min; Est GFR (Non-African American) 79.3 ml/min; Globulin 3.5 gm/dl (2.5-4.0); Potassium 3.7 mmol/L (3.5-5.1); Total Protein 7.1 gm/dl (6.0-8.3)
[2024-03-15] MEDS ORDERED: ACETAMINOPHEN 650 MG SUPP PR PRN (08:13)
[2024-03-15] MEDS: ASPIRIN 81 MG ECTAB PO SCH (08:54)
[2024-03-15] MEDS: ATORVASTATIN 20 MG TAB PO SCH (08:54)
[2024-03-15] MEDS: ACETAMINOPHEN 325 MG TAB PO PRN (08:54)
[2024-03-15] MEDS: dexAMETHasone 6 MG in SYRINGE 0 ML IV SCH (08:55)
[2024-03-15] MEDS: ENOXAPARIN INJ 40 MG/0.4 ML SYR SQ SCH (08:56)
--- NOTE | 2024-03-15 11:31 | Hospitalist Progress Note ---
Date of Service March 15, 2024 Assessment & Plan (1) Hypoxia: (2) COVID: Plan 73-year-old lady with PMH of HTN, HLD, IDRIS, hypothyroidism, prediabetes, fibromyalgia, mood disorder Presented to the ED with few days history of worsening cough associated with headache, nausea, vomiting, pleuritic chest pain, progressive weakness. She was noted to have COVID-19 infection, she is being managed for the following: Hypoxia: Not resp failure as pt not in resp distress per ED and HnP notes. Infection due to COVID-19 virus Sepsis POA: Likely secondary to above. Respiratory rate and WBC elevated at presentation. Patient presenting with cough productive of scant sputum associated with generalized illness for few days [employer]IE[employer]. Patient noted to have COVID-19 infection at presentation. Patient started on dexamethasone 03/14 and remdesivir 03/14, continue. Monitor LFT. Patient reports improving cough now, denies nausea and vomiting, reports feeling better. Wean down oxygen as tolerated. Continue with incentive spirometer, nebs as needed. Doxycycline for possible complicated bronchitis. Pulmonology consult if with no improvement. Admitting CTA chest with left thyroid nodule about 2.0 cm. Outpatient thyroid ultrasound upon discharge. Other chronic medical conditions: Continue with/resume home meds as and when able. hypertension, stable hyperlipidemia, on statin Rx hypothyroidism, euthyroid as of today's TSH prediabetes, hemoglobin A1c of 5.5 from 2021 Thyroid nodule DVT prophylaxis. Lovenox subcu Full code Text document was generated using [employer] voice recognition software. It may contain grammatical or spelling errors. Kindly contact undersigned for clarification of any documentation item in question. Admission and Anticipated Discharge Date Admission Date: March 14, 2024 Subjective Patient was seen and examined at bedside. Patient was lying in bed, on 1 L oxygen via nasal cannula, NAD, resting comfortably. Patient reports improving cough/has scant sputum, reports feeling better, reports no further nausea or vomiting, is tolerating clear liquid diet, will advance to full liquid diet. Patient is moving gas, has not moved bowel, feels overall better but is still weak from the illness. Physical Exam Physical Exam: GENERAL: Comfortable, pleasant, obese, no respiratory distress SKIN: Normal color, warm HEENT: Cass palpebral conjunctivae, no ptosis, moist buccal mucosa, nasal cannula in place NECK : Supple, no tenderness CHEST : Decreased breath sounds, no tenderness, bb dry crackles. HEART : RRR, no obvious murmurs ABDOMEN: Some distention, nontender EXTREMITIES : No LE swelling/tenderness, no other conspicuous deformities noted NEUROLOGIC : Coherent, no facial asymmetry, no other gross focality Results & Data Results & Data Vital Signs (Past 12 Hours) Vital Signs Pulse Resp BP Pulse Ox Pulse Ox O2 Del Method O2 Del Method 03/15/24 08:15 Nasal Cannula 03/15/24 06:55 56 L 03/15/24 06:06 58 L 18 122/71 95 03/15/24 05:19 97 Nasal Cannula 03/15/24 05:00 63 18 116/69 96 03/15/24 04:30 60 20 108/68 03/15/24 04:06 58 L 14 102/61 03/15/24 03:36 60 15 108/61 03/15/24 03:03 59 L 13 119/67 03/15/24 02:27 60 15 114/69 03/15/24 02:00 60 15 100/64 03/15/24 01:27 63 16 104/62 03/15/24 01:03 67 16 113/58 L 95 03/15/24 00:33 68 03/15/24 00:21 69 17 114/63 95 03/15/24 00:03 69 18 118/67 95 03/14/24 23:48 70 16 135/64 96 O2 Flow Rate O2 Flow Rate 03/15/24 08:15 1 03/15/24 06:55 03/15/24 06:06 03/15/24 05:19 2 03/15/24 05:00 03/15/24 04:30 03/15/24 04:06 03/15/24 03:36 03/15/24 03:03 03/15/24 02:27 03/15/24 02:00 03/15/24 01:27 03/15/24 01:03 03/15/24 00:33 03/15/24 00:21 03/15/24 00:03 03/14/24 23:48
--- OUTSIDE RECORDS SUMMARY | 2024-03-15 14:40 | External Medical Summary ---
Author Name Unknown Address Unknown Organization K01:[facility] [place] [address] [facility] [place] [address] Laboratory Report Ordering Provider Test Date Status SUBHASH SOUTH 02/08/2024 11:14:14 Final Observation Date Value Abnormality Reference (Units ) Status BUN 02/08/2024 11:14:14 17 6-20 (mg/dL) Final Creatinine 02/08/2024 11:14:14 1.0 0.5-1.0 (mg/dL) Final Glomerular filtration rate/1.73 sq M.predicted [Volume Rate/Area] in Serum, Plasma or Blood by Creatinine-based formula (CKD-EPI) 02/08/2024 11:14:14 62 >=60 (mL/min) Final eGFR is calculated based on the CKD-EPI 2020 equation Sodium 02/08/2024 11:14:14 142 135-146 (m mol/L) Final Potassium 02/08/2024 11:14:14 4.2 3.5-5.1 (m mol/L) Final Cl 02/08/2024 11:14:14 104 98-107 (mm ol/L) Final CO2 02/08/2024 11:14:14 28 22-32 (mmo l/L) Final Anion gap 02/08/2024 11:14:14 10 7-15 (mmol /L) Final Glucose 02/08/2024 11:14:14 95 70-120 (mg /dL) Final Calcium 02/08/2024 11:14:14 9.0 8.4-10.2 ( mg/dL) Final Performing Location [facility] [place] [address] [place] [address]
--- OUTSIDE RECORDS SUMMARY | 2024-03-15 14:40 | External Medical Summary | Summary of Care ---
Author Name Unknown Organization [facility] Address [address] [place] [address] Phone [phone] Care Team Providers Care Senior Business Broker Name Role Phone Roxana Coleman DO Primary Care Provider Reason for Visit * Reason Onset Date Comments Test Results 02/20/2024 Encounter Details Date Type Department Care Team (Late st Contact Info) Description 02/20/2024 Telephone Family Medicine [address] [phone] Roxana Coleman DO [address] [place] [address] [place] [address] Test Results Allergies Active Allergy Reactions Criticality Noted Date Comments Atorvastatin High 03/28/2013 Other reaction(s): Leg cramps Codeine Rash High 03/28/2013 Esomeprazole Magnesium High 03/28/2013 Other reaction(s): GI Pain Hydrocodone High 03/28/2013 Other reaction(s): Itch Lisinopril Cough High 07/12/2017 Other reaction(s): Cough Morphine High 03/08/2022 Other reaction(s): Rash Morphine And Codeine Rash Rofecoxib High 03/28/2013 Other reaction(s): GI Sulfa Antibiotics High 03/28/2013 Nausea--side effect Other reaction(s): Nausea Other reaction(s): Nausea documented as of this encounter (statuses as of 02/21/2024) Medications Medication Sig Dispensed Refills Start Date End Date Status Cholecalciferol (VITAMIN D3) 2000 UNITS Capsule Take 1 Capsule by mouth in the morning. 1 Cap 0 08/13/2015 Active Multiple Vitamins-Minerals (DAILY MULTIVITAMIN) CAPSIndications:i n am 3 daily 08/08/2017 Active Melatonin 10 MG Oral Tablet Take 1 Tablet by mouth at bedtime. Active Vitamin C 1000 MG Oral Tablet Take 1 Tablet by mouth in the morning. Active Vitamin B 12 500 MCG Oral TabletIndications :in am Take by mouth. 01/15/2021 Active Aspirin 81 MG Oral Tablet Chewable Take 1 Tablet by mouth in the morning. with food.. 100 Tab 5 01/15/2021 Active Acetaminophen 325 MG Oral Tablet Take by mouth every 4 hours as needed for Pain, Mild or Pain, Moderate. 100 Tablet 1 04/27/2022 Active D-Mannose 500 MG Oral Capsule Once daily (OTC) 06/05/2023 Active Polyethylene Glycol 3350 17 GM/SCOOP Oral Powder (MiraLax) Dissolve one heaping tablespoon in 8 ounces of water or juice. Twice Daily as needed 06/05/2023 Active Levothyroxine Sodium 88 MCG Oral Tablet (Levoxyl)Indicati ons:Hypothyroidis m (acquired) Take 1 Tablet by mouth daily first thing in the morning. 100 Tablet 3 06/05/2023 Active Myrbetriq 50 MG Oral Tablet Extended Release 24 Hour (Mirabegron ER) TAKE ONE TABLET BY MOUTH EVERY MORNING 90 Tablet 3 08/23/2023 08/22/2024 Active Atorvastatin Calcium 20 MG Oral Tablet (Lipitor) TAKE ONE TABLET BY MOUTH EVERY DAY IN THE MORNING 100 Tablet 1 10/09/2023 10/08/2024 Active traZODone HCl 100 MG Oral Tablet (Desyrel) Take 1 Tablet by mouth at bedtime. Active Estradiol 0.1 MG/GM Vaginal Cream (Estrace) Apply pea sized amount (0.5 gm ) vaginally every other night. 42.5 g 3 10/26/2023 Active FLUoxetine HCl 20 MG Oral Capsule (PROzac) Take 3 capsule by mouth once a day 270 Capsule 1 02/13/2024 Active traZODone HCl 100 MG Oral Tablet (Desyrel) Take 1 tablet by mouth every night as directed 90 Tablet 2 02/13/2024 Active documented as of this encounter (statuses as of 02/21/2024) Active Problems Problem Noted Date Diagnosed Date Multiple thyroid nodules 06/05/2023 Major depressive disorder, recurrent, mild 01/25 Intermittent asthma with rel iever use up to twice per week without complication 01/25/2022 Post-traumatic stress disorder, chronic 01/26/20 22 Statin medication declined by patient 07/27/2021 Blepharochalasis of both upper eyelids Myelomalacia of cervical cord 03/11/2021 HTN, goal below 140/90 01/22/2021 Advanced directives, counseling/discussion 06/19 Urinary incontinence without sensory awareness 0 09/13/2019 Urge incontinence of urine 09/13/2019 Nocturnal enuresis 09/13/2019 H/O adenomatous polyp of colon 01/11/2019 Paroxysmal SVT (supraventricular tachycardia) Overview: Zio monitor 08/21 RIDGE (generalized anxiety disorder) 07/12/2017 Fibromyalgia 08/13/2015 Vitamin D deficiency 08/13/2015 Hypothyroidism (acquired) 01/11/2015 Hyperlipidemia with target LDL less than 100 03/2015 Generalized osteoarthritis 12/31/2014 Degenerative disc disease, cervical 12/31/2014 Lumbar degenerative disc disease 12/31/2014 Overview: MRI 05/2018 Multilevel degenerative disease L5S1 severe foraminal stenosis Chronic tension-type headache, not intractable 0 12/31/2014 Overview: ICD-10 update of inactive term Cervicogenic headache 12/31/2014 documented as of this encounter (statuses as of 02/21/2024) Resolved Problems Problem Noted Date Diagnosed Date Resolved Date Parathyroid abnormality 03/08/202205/05 Hypertensive kidney disease with stage 3a chronic kidney disease 01/12/2022 02/28/2023 Chronic kidney disease, stage 3a 08/16/2021 02/28/2023 Overview: Per CKD protocol Syncope and collapse 01/15/2021 023 Overview: [id number] Has had extensive evaluation including brain MRI, EMG, acetylcholine AB, lumbar MRI, EEG, dobutamine stress test, echo, zio monitor. Cardiac studies without etiology for syncope. Neuro studies with normal findings except for significant degenerative disease of the lumbar spine. Last visit with Neurology, suggesting her symptoms are related to lumbar stenosis. 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 03/08/20 Leg weakness, bilateral 05/15/201904/05 Dysphonia 04/30/2019 01/15/2021 Parathyroid abnormality 04/25/201901/03 Thyroid nodule 07/30/2018 06/05/2023 Overview: FNA 09/20/18 Benign follicular nodule. Left leg weakness 07/30/2018 10/25/2018 Headache, unspecified headache type 07/30/2018 10/25/2018 Adrenal abnormality 07/18/2018 10/25/19 19 Lesion of adrenal gland 07/18/201810/06 Pancreatic cyst 07/18/2018 03/08/2022 Prediabetes 10/17/2017 05/19/2022 Overview: Per Prediabetes protocol #1 Vitamin D insufficiency 01/11/201508/04 Moderate episode of recurren t major depressive disorder 12/31/2014 01/15/2021 Obstructive sleep apnea of adult 12/31/2014 06/09/2020 Adenomatous polyp of descending colon 12/31/2014 01/11/2019 Prehypertension 12/31/2014 01/22/2021 BMI 33.0-33.9,adult 12/31/2014 08/10/20 22 Carpal tunnel syndrome, bilateral 04/26/2007 08/10/2022 Mixed dyslipidemia 05/29/2003 5 ADJ DISORDER W/DEPRES MOOD 05/29/2003 0 01/08/2015 documented as of this encounter (statuses as of 02/21/2024) Immunizations Name Administration Dates Next Due COVID-19 mRNA, LNP-s, No Pre serve, 2-Dose Series (Pfizer) 03/16/2021,02/19/2021 Pneumococcal Conjugate Vacc, 13 Valent (Prevnar) 02/09/2015 Pneumococcal Polysaccharide PPV23 (Pneumovax) Zoster Vaccine Recombinant (Shingrix) 08/10/2022 ,01/25/2022 documented as of this encounter Social History Tobacco Use Types Packs/Day Years Used Date Smoking Tobacco: Never Smokeless Tobacco: Never Alcohol Use Standard Drinks/Week Comments No 0 (1 standard drink = 0.6 oz pur e alcohol) PHQ-2 Answer Date Recorded PHQ Adult Total Score 0 09/07/2023 Hunger Vital Sign Answer Date Recorded Within the past 12 months, y ou worried that your food would run out before you got the money to buy more. Never true 09/07/19 24 Within the past 12 months, t he food you bought just didn't last and you didn't have money to get more. Never true 09/07/2023 Sex and Gender Information Value Date Recorded Sex Assigned at Female 09/06/2022 1:06 PM EST Gender Identity Female 09/06/2022 1:06 PM EST Sexual Orientation Straight 09/06/2022 1: 06 PM EST Job Start Date Occupation Industry Not on file Not on file Not on file documented as of this encounter Miscellaneous Notes * Telephone Encounter - Blaire Titus LPN - 02/21/2024 9:43 AM EDT Pt aware via Identified VM box * Telephone Encounter - Roxana Coleman DO - 02/21/2024 9:01 AM EDT Brain MRI was normal. MRI C-spine was unchanged. Notify pt. * Telephone Encounter - Blaire Titus LPN - 02/21/2024 8:08 AM EDT Please advise MRI complete * Telephone Encounter - Chapis Singh OSA - 02/20/2024 4:02 PM EDT Who is Requesting Test Results: pt Primary Care Provider : Roxana Coleman DO Tests Results Requested : MRI Date of Test : 02/14 Location of Test: [facility] Ordering Provider: Dr Naranjo Patient has been made aware that the turnaround time for test results are typically as follows: Laboratory results = within 2-3 days ([facility]), 3-5 days (Non-[facility], ie. [facility]) Urine Cultures = within 2-3 days depending on growth within the culture Pathology results (biopsy results/PAP) = 1-2 weeks Radiology results = about 1 week Cologuard results = within 2 weeks from the shipment date COVID testing = about 24 hours documented in this encounter Plan of Treatment Upcoming Encounters Date Type Department Care Team (Late st Contact Info) Description 09/09/2024 12:30 PM EST Nurse Only Ancillary [address] [place] [address] [place], Nurse [address] [place] [address] Scheduled Procedures Name Priority Associated Diagnoses Date/Ti me COLONOSCOPY FLEXIBLE PROXIMA L DIAGNOSTIC Recall History of colon polyps Family history of colon cancer Health Maintenance Due Date Last Done Comments COVID-19 Vaccine ( season) 2023 03/16/2021, 02/19/2021 Depression Monitoring 09/07/2024 09/07/2023 TSH 10/03/2024 10/03/2023, 11/03, 04/29/2022, Additional history exists Colonoscopy 11/02/2024 11/02/2021, 09/2021, 11/16/2015, Additional history exists GFR 02/07/2025 02/08/2024, 09/06, 02/28/2023, Additional history exists Albumin/Creatinine Ratio 10/03/2026 10/03/2023, 02/03 DXA Scan 03/11/2028 03/11/2021, 06/10/2015 DTaP,Tdap,and Td Vaccines (2 - Td or Tdap) 07/03/2030 07/03/2020 Pneumococcal Vaccine: 65+ Years Completed 10/24/2016, 02/09/2015 RETIRED - COLONOSCOPY-EVERY 5 YRS AGES 18-100 Discontinued 11/02/2021, 11/02/2021, 11/16/2015, Additional history exists Zoster Vaccines Discontinued 08/10/2022, 01/25/2022 GARDASIL-HPV IMMUNIZATION SERIES Aged Out No longer eligible based on patient's age to complete this topic Hepatitis B Aged Out No longer eligi ble based on patient's age to complete this topic MENINGOCOCCAL (MENACTRA/MENVEO) Aged Out No longer eligible based on patient's age to complete this topic documented as of this encounter Medical Devices Not on filedocumented as of this encounter Advance Directives Documents on File Type Date Recorded Patient Worship Director Expl anation Advance Directives and Living Will 12/13/2022 Raman Bonilla ADVANCE DIRECTIVE / LIVING WILL Healthcare Agents on File Name Relationship Healthcare Agent Relationshi p Communication Raman Bonilla Adult Child Health Care Repr esentative (appointed verbally by patient or by statute hierarchy) Trice Bonilla Adult Child Health Care Repr esentative (appointed verbally by patient or by statute hierarchy) Bridgette Alvarado Adult Child Health Care Repr esentative (appointed verbally by patient or by statute hierarchy) Care Teams Senior Business Broker Relationship Specialty Start Date End Date Roxana Coleman DO [address] [place] [address] [place] [address] PCP - General Internal Medicine 08/10/22 documented as of this encounter
--- OUTSIDE RECORDS SUMMARY | 2024-03-15 14:40 | External Medical Summary | Summary of Care ---
Author Name Unknown Organization [facility] Address [address] [place] [address] Phone [phone] Care Team Providers Care Associate Professor Of Library Media Name Role Phone Roxana Coleman DO Primary Care Provider Reason for Visit * Reason Onset Date Comments Health Maintenance 12/06/2023 Encounter Details Date Type Department Care Team (Late st Contact Info) Description 12/06/2023 Telephone Family Medicine [address] [phone] Roxana Coleman DO [address] [place] [address] [place] [address] Health Maintenance Allergies Active Allergy Reactions Criticality Noted Date Comments Atorvastatin High 03/28/2013 Other reaction(s): Leg cramps Codeine Rash High 03/28/2013 Esomeprazole Magnesium High 03/28/2013 Other reaction(s): GI Pain Hydrocodone High 03/28/2013 Other reaction(s): Itch Lisinopril Cough High 07/12/2017 Other reaction(s): Cough Morphine High 03/08/2022 Other reaction(s): Rash Morphine And Related Rash Rofecoxib High 03/28/2013 Other reaction(s): GI Sulfa Antibiotics High 03/28/2013 Nausea--side effect Other reaction(s): Nausea Other reaction(s): Nausea documented as of this encounter (statuses as of 12/06/2023) Medications Medication Sig Dispensed Refills Start Date End Date Status Cholecalciferol (VITAMIN D3) 2000 UNITS Capsule Take 1 Capsule by mouth in the morning. 1 Cap 0 08/13/2015 Active Multiple Vitamins-Minerals (DAILY MULTIVITAMIN) CAPSIndications:in am 3 daily 0 08/08/2017 Active meclizine (ANTIVERT) 12.5 MG TabletIndications: Benign paroxysmal positional vertigo due to bilateral vestibular disorder,Dizziness Take 1 Tab by mouth 3 times a day as needed for Dizziness. 30 Tab 1 10/31/2019 Active Additional Information Patient not taking.Reported on 10/26/2023 Melatonin 10 MG Oral Tablet Take 1 Tablet by mouth at bedtime. 0 Active Probiotic Acidophilus BioBeads Oral Capsule Take 1 Cap by mouth daily. 0 Active Vitamin C 1000 MG Oral Tablet Take 1 Tablet by mouth in the morning. 0 Active Vitamin B 12 500 MCG Oral TabletIndications: in am Take by mouth. 0 01/15/2021 Active Aspirin 81 MG Oral Tablet Chewable Take 1 Tablet by mouth in the morning. with food.. 100 Tab 5 01/15/2021 Active Acetaminophen 325 MG Oral Tablet Take by mouth every 4 hours as needed for Pain, Mild or Pain, Moderate. 100 Tablet 1 04/27/2022 Active D-Mannose 500 MG Oral Capsule Once daily (OTC) 0 06/05/2023 Active Polyethylene Glycol 3350 17 GM/SCOOP Oral Powder (MiraLax) Dissolve one heaping tablespoon in 8 ounces of water or juice. Twice Daily as needed 0 06/05/2023 Active Levothyroxine Sodium 88 MCG Oral Tablet (Levoxyl)Indicatio ns:Hypothyroidism (acquired) Take 1 Tablet by mouth daily first thing in the morning. 100 Tablet 3 06/05/2023 Active Myrbetriq 50 MG Oral Tablet Extended Release 24 Hour (Mirabegron ER) TAKE ONE TABLET BY MOUTH EVERY MORNING 90 Tablet 3 08/23/2023 08/22/2024 Active Mirtazapine 7.5 MG Oral Tablet (Remeron) Take 1 Tablet by mouth at bedtime. 0 Active Rexulti 0.5 MG Oral Tablet (Brexpiprazole)Ind ications:HTN, goal below 140/90,Multiple thyroid nodules,Vitamin D deficiency,Hypothy roidism (acquired),Fibromy algia Take by mouth daily. 0 10/03/2023 Active Atorvastatin Calcium 20 MG Oral Tablet (Lipitor) TAKE ONE TABLET BY MOUTH EVERY DAY IN THE MORNING 100 Tablet 1 10/09/2023 10/08/2024 Active traZODone HCl 100 MG Oral Tablet (Desyrel) Take 1 Tablet by mouth at bedtime. 0 Active Estradiol 0.1 MG/GM Vaginal Cream (Estrace) Apply pea sized amount (0.5 gm ) vaginally every other night. 42.5 g 3 10/26/2023 Active FLUoxetine HCl 20 MG Oral Capsule (PROzac) Take 3 capsules by mouth once a day 270 Capsule 1 11/14/2023 Active traZODone HCl 100 MG Oral Tablet (Desyrel) Take 1 tablet by mouth every night as directed 90 Tablet 2 11/14/2023 Active documented as of this encounter (statuses as of 12/06/2023) Active Problems Problem Noted Date Diagnosed Date Multiple thyroid nodules 06/05/2023 Major depressive disorder, recurrent, mild 01/25 Intermittent asthma with rel iever use up to twice per week without complication 01/25/2022 Post-traumatic stress disorder, chronic 01/26/20 Statin medication declined by patient 07/27/2021 Blepharochalasis [...] as of this encounter (statuses as of 12/06/2023) Resolved Problems Problem Noted Date Diagnosed Date Resolved Date Parathyroid abnormality 03/08/202205/05 Hypertensive kidney disease with stage 3a chronic kidney disease 01/12/2022 02/28/2023 Chronic kidney disease, stage 3a 08/16/2021 02/28/2023 Overview: Per CKD protocol Syncope and collapse 01/15/2021 023 Overview: [id number] Has had extensive evaluation including brain MRI, EMG, acetylcholine AB, lumbar MRI, EEG, dobutamine stress test, echo, zio monitor. Cardiac studies without etiology for syncope. Neuro studies with normal findings except for significant degenerative disease of the lumbar spine. Last visit with Neurology, suggesting her symptoms are related to lumbar stenosis. 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 03/08/20 22 Leg weakness, bilateral 05/15/201904/05 Dysphonia 04/30/2019 01/15/2021 [...] as of this encounter (statuses as of 12/06/2023) Immunizations Name Administration Dates Next Due COVID-19 mRNA, LNP-s, No Pre serve, 2-Dose Series ([employer]) 03/16/2021,02/19/2021 Pneumococcal Conjugate Vacc, 13 Valent (Prevnar) [...] encounter Miscellaneous Notes * Telephone Encounter - Flora Louise LPN - 12/06/2023 9:45 AM EDT Care Gaps Comprehensive Care Outreach Last Office/Telemedicine Visit: 10/03/2023 (in office), Visit date not found (telemedicine) Next Office Visit: 12/20/2023 Hemoglobin AIC Results: Lab Results Component Value Date/Time HEMOGLOBIN A1C - [facility] 5.5 07/29/2022 02:40 PM HEMOGLOBIN A1C - [facility] 5.8 (H) 07/27/2021 11:51 AM HEMOGLOBIN A1C - [facility] 5.7 (H) 05/13/2020 12:42 PM HEMOGLOBIN A1C - [facility] 5.9 (H) 04/23/2019 12:12 PM HEMOGLOBIN A1C - [facility] 5.8 (H) 07/18/2018 11:12 AM BP Readings from Last 1 Encounters: 10/26/23 114/76 Reviewed Health Maintenance below: Health Maintenance Topic Date Due COVID-19 Vaccine () 05/05/2023 Depression Screening 09/07/2024 GFR 10/03/2024 TSH 10/03/2024 COLONOSCOPY-EVERY 3 YRS AGES 18-100 11/02/2024 Albumin/Creatinine Ratio 10/03/2026 Awv already done Care Gap Outreach Action Taken: Outreach not indicated documented in this encounter Plan of Treatment Upcoming Encounters Date Type Department Care Team (Late st Contact Info) Description 12/20/2023 3:00 PM EDT Office Visit Family Medicine [address] [place] [phone] Yue De La Torre PA-C [address] [place] [address] [place] [address] 09/09/2024 12:30 PM EST Nurse Only Ancillary [address] [place] [address] [place], Nurse Annual [address] [place] [address] Scheduled Procedures Name Priority Associated Diagnoses Date/Ti me COLONOSCOPY FLEXIBLE PROXIMA L DIAGNOSTIC Recall History of colon polyps Family history of colon cancer Health Maintenance Due Date Last Done Comments COVID-19 Vaccine () 05/05/2023 03/16/2021, 02/19/2021 Depression Screening 09/07/2024 09/07/2023 GFR 10/03/2024 10/03/2023, 02/03, 11/29/2022, Additional history exists TSH 10/03/2024 10/03/2023, 11/03, 04/29/2022, Additional history exists COLONOSCOPY-EVERY 3 YRS AGES 18-100 11/02/2024 11/02/2021, 11/02/2021, 11/16/2015, Additional history exists Albumin/Creatinine Ratio 10/03/2026 10/03/2023, 02/03 DXA Scan 03/11/2028 03/11/2021, 06/10/2015 DTaP,Tdap,and Td Vaccines (2 - Td or Tdap) 07/03/2030 07/03/2020 Pneumococcal Vaccine: 65+ Years Completed 10/24/2016, 02/09/2015 COLONOSCOPY-EVERY 5 YRS AGES 18-100 Discontinued 11/02/2021, [...] Documents on File Type Date Recorded Patient Head Of Data Expl anation Advance Directives and Living Will 12/13/2022 Raman Bonilla ADVANCE DIRECTIVE / LIVING WILL Healthcare Agents on File Name Relationship Healthcare Agent Relationshi p Communication Raman Bonilla Adult Child Health Care Repr esentative (appointed verbally by patient or by statute hierarchy) Trice Bonilla Adult Child Health Care Repr esentative (appointed verbally by patient or by statute hierarchy) Bridgette Alvaardo Adult Child Health Care Repr esentative (appointed verbally by patient or by statute hierarchy) Care Teams Associate Professor Of Library Media Relationship Specialty Start Date End Date Roxana Coleman DO [address] [place] [address] [place] [phone] PCP - General Internal Medicine 08/10/22 documented as of this encounter
--- OUTSIDE RECORDS SUMMARY | 2024-03-15 14:40 | External Medical Summary | Summary of Care ---
Author Name Unknown Organization [facility] Address [address] [place] [address] Phone [phone] Care Team Providers Care Wire Taper Name Role Phone ColemanRoxana cleary Primary Care Provider [phone] Reason for Visit * Reason Comments Outpatient Testing Encounter Details Date Type Department Care Team (Late st Contact Info) Description 02/08/2024 11:20 AM EDT Laboratory Laboratory [address] [place] [phone] [place], Lab [address] [place] [address] Myelomalacia of cervical cord (HCC); Degenerative disc disease, cervical; Lumbar degenerative disc disease; Left-sided weakness Allergies Active Allergy Reactions Criticality Noted Date [...] as of this encounter (statuses as of 02/08/2024) Medications Medication Sig Dispensed Refills Start Date [...] as of this encounter (statuses as of 02/08/2024) Active Problems Problem Noted Date Diagnosed Date [...] as of this encounter (statuses as of 02/08/2024) Resolved Problems Problem Noted Date Diagnosed Date Resolved Date Parathyroid abnormality 03/08/202205/05 Hypertensive kidney disease with stage 3a chronic kidney disease 01/12/2022 02/28/2023 Chronic kidney disease, stage 3a 08/16/2021 02/28/2023 Overview: Per CKD protocol Syncope and collapse 01/15/2021 023 Overview: [id number] Has had extensive evaluation including brain MRI, [...] as of this encounter (statuses as of 02/08/2024) Immunizations Name Administration Dates Next Due COVID-19 [...] on file documented as of this encounter Plan of Treatment Upcoming Encounters Date Type Department Care Team (Late st Contact Info) Description 02/15/2024 10:15 AM EDT Imaging Radiology [address] [place] [address] 02/15/2024 11:00 AM EDT Imaging Radiology [address] [place] [address] 09/09/2024 12:30 PM EST Nurse Only Ancillary [address] [place] [address] [place], Nurse [address] [place] [address] Pending Results Name Type Priority Associated Diagnoses Date /Time BASIC METABOLIC PANEL Lab Routine Myelomalacia of cervical cord (HCC) Degenerative disc disease, cervical Lumbar degenerative disc disease Left-sided weakness 02/08/2024 11:14 AM EDT Scheduled Procedures Name Priority Associated Diagnoses Date/Ti me COLONOSCOPY FLEXIBLE PROXIMA L DIAGNOSTIC Recall History of colon polyps Family history of colon cancer Health Maintenance Due Date Last Done Comments COVID-19 Vaccine ( season) 2023 03/16/2021, 02/19/2021 GFR 10/03/2024 10/03/2023, 02/03, 11/29/2022, Additional history exists TSH 10/03/2024 10/03/2023, 11/03, 04/29/2022, Additional history exists Colonoscopy 11/02/2024 11/02/2021, 09/2021, 11/16/2015, Additional history exists Albumin/Creatinine Ratio 10/03/2026 [...] Not on filedocumented as of this encounter Visit Diagnoses Diagnosis Myelomalacia of cervical cord (HCC) Other myelopathy Degenerative disc disease, cervical Degeneration of cervical intervertebral disc Lumbar degenerative disc disease Degeneration of lumbar or lumbosacral intervertebral disc Left-sided weakness Muscle weakness (generalized) documented in this encounter Advance Directives Documents on File Type Date Recorded Patient Systems Analyst Engineer Expl anation Advance Directives and Living Will [...] patient or by statute hierarchy) Care Teams Wire Taper Relationship Specialty Start Date End Date Roxana Coleman DO [address] [place] [address] [place] [address] PCP - General Internal Medicine 08/10/22 documented as of this encounter
--- OUTSIDE RECORDS SUMMARY | 2024-03-15 14:40 | External Medical Summary | Summary of Care ---
Author Name Unknown Organization [facility] Address [address] [place] [address] Phone [phone] Care Team Providers Care Ear Pull Machine Operator Name Role Phone Coleman Roxana Douglass Primary Care Provider Reason for Referral * Precert (Within 10 days (routine)) - Pending Review Specialty Diagnoses / Procedures Referred By Contac t Referred To Contact Radiology Diagnoses Myelomalacia of cervical cord (HCC) Degenerative disc disease, cervical Procedures MRI C SPINE W WO CONTRAST Dillan Worrell MD [address] [place] [address] [place] [id number] Referral ID Status Reason Start Date Expiration Date V isits Requested Visits Authorized [id number] Pending Review 02/15/2024 999 999 * Precert (Within 10 days (routine)) - Pending Review Specialty Diagnoses / Procedures Referred By Contac t Referred To Contact Radiology Diagnoses Myelomalacia of cervical cord (HCC) Degenerative disc disease, cervical Left-sided weakness Procedures MRI BRAIN WITHOUT CONTRAST Dillan Worrell MD [address] [place] [address] [place] [id number] Referral ID Status Reason Start Date Expiration Date V isits Requested Visits Authorized [id number] Pending Review 02/15/2024 999 999 Reason for Visit * Reason Comments Acute Pt c/o worsening lef t leg and arm pain x at least a year, but noticed it's getting worse recently, no known injury. Encounter Details Date Type Department Care Team (Late st Contact Info) Description 02/08/2024 11:00 AM EDT Office Visit Family [address] [place] [address] Dillan Worrell MD [address] [place] [address] [place] [id number] Myelomalacia of cervical cord (HCC)*; Degenerative disc disease, cervical; Lumbar degenerative disc [...] MOUTH EVERY MORNING 90 Tablet 3 08/23/2023 4 Active Atorvastatin Calcium 20 MG Oral Tablet (Lipitor) TAKE ONE TABLET BY MOUTH EVERY DAY IN THE MORNING 100 Tablet 1 10/09/2023 5 Active traZODone HCl 100 MG Oral Tablet [...] as directed 90 Tablet 2 11/14/2023 Active meclizine (ANTIVERT) 12.5 MG TabletIndications :Benign paroxysmal positional vertigo due to bilateral vestibular disorder,Dizzines s Take 1 Tab by mouth 3 times a day as needed for Dizziness. 30 Tab 1 10/31/2019 4 Discontinue d(Patient preference/ discontinua tion) Probiotic Acidophilus BioBeads Oral Capsule Take 1 Cap by mouth daily. 4 Discontinue d(Patient preference/ discontinua tion) Mirtazapine 7.5 MG Oral Tablet (Remeron) Take 1 Tablet by mouth at bedtime. 4 Discontinue d(Patient preference/ discontinua tion) Rexulti 0.5 MG Oral Tablet (Brexpiprazole)In dications:HTN, goal below 140/90,Multiple thyroid nodules,Vitamin D deficiency,Hypoth yroidism (acquired),Fibrom yalgia Take by mouth daily. 10/03/2023 4 Discontinue d(Patient preference/ discontinua tion) documented as of this encounter (statuses as [...] protocol Syncope and collapse 01/15/2021 023 Overview: [id number] Has had extensive evaluation including brain MRI, [...] money to buy more. Never true 09/07/19 Within the past 12 months, t he [...] on file documented as of this encounter Last Filed Vital Signs Vital Sign Reading Time Taken Comments Blood Pressure 122/70 02/08/2024 10:54 AM EDT Pulse 68 02/08/2024 10:54 AM EDT Temperature 36.5 C (97.7 F) 02/08/2024 10:54 AM E DT Respiratory Rate - - Oxygen Saturation 98% 02/08/2024 10:54 AM EDT Inhaled Oxygen Concentration - - Weight 73.2 kg (161 lb 6.4 oz) 02/08/2024 10:54 AM EDT Height - - Body Mass Index 31.52 10/26/2023 9:14 AM EST documented in this encounter Progress Notes * Dillan Worrell MD - 02/08/2024 10:51 AM EDT Rk has the history of both neck and back surgery, also bilateral carpal tunnel procedures. For a year the left side has been getting weaker. She has trouble going up steps. She wonders if she had astroke. Patient Active Problem List Diagnosis Generalized osteoarthritis Degenerative disc disease, cervical Lumbar degenerative disc disease Chronic tension-type headache, not intractable Hyperlipidemia with target LDL less than 100 Hypothyroidism (acquired) Fibromyalgia Vitamin D deficiency RIDGE (generalized anxiety disorder) Paroxysmal SVT (supraventricular tachycardia) (HCC) H/O adenomatous polyp of colon Advanced directives, counseling/discussion Urinary incontinence without sensory awareness Urge incontinence of urine Nocturnal enuresis Cervicogenic headache HTN, goal below 140/90 Myelomalacia of cervical cord (HCC) Statin medication declined by patient Blepharochalasis of both upper eyelids Major depressive disorder, recurrent, mild (HCC) Intermittent asthma with reliever use up to twice per week without complication Post-traumatic stress disorder, chronic Multiple thyroid nodules Past Medical History: Diagnosis Date Adenomatous polyp of descending colon 12/31/2014 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 Carpal tunnel syndrome 04/26/2007 Carpal tunnel syndrome, bilateral 04/26/2007 Colon polyps 12/31/2014 Degenerative disc disease, cervical 12/31/2014 Depressive disorder, not elsewhere classified 12/31/2014 Dyslipidemia, goal LDL below 130 01/08/2015 Fibromyalgia 08/13/2015 Generalized osteoarthritis 12/31/2014 Headache(784.0) 12/31/2014 Headache, unspecified headache type 07/30/2018 HTN, goal below 140/90 12/31/2014 Hyperlipidemia with target LDL less than 100 01/08/2015 Hypothyroidism (acquired) 01/11/2015 Hypothyroidism (acquired) 01/11/2015 Kidney stone 03/24/13 First episode-no previous history Left leg weakness 07/30/2018 Leg weakness, bilateral 05/15/2019 Lumbar degenerative disc disease 12/31/2014 Malaise and fatigue 12/31/2014 Obesity 12/31/2014 Obstructive sleep apnea of adult 12/31/2014 Vertigo 05/12/2020 Vitamin D insufficiency 01/11/2015 Past Surgical History: Procedure Laterality Date ANT CERVICAL ARTHROPLASTY(W/DISCECTOMY) 2007 and 2006 posterior and anterior procedures CARPAL TUNNEL SURGERY 1990 and 2006 right and left CARPAL TUNNEL SURGERY Right 06/23/2021 NEUROPLASTY MEDIAN NERVE AT CARPAL TUNNEL performed by Az Valdez MD at [facility] CARPAL TUNNEL SURGERY Left 07/07/2021 NEUROPLASTY MEDIAN NERVE AT CARPAL TUNNEL performed by Az Valdez MD at [facility] COLONOSCOPY 11/16/2015 normal, repeat 5 yrs COLONOSCOPY, DIAGNOSTIC (RECTUM) N/A 11/16/2015 COLONOSCOPY FLEXIBLE PROXIMAL DIAGNOSTIC performed by Nandini Cabral DO at [facility] COLONOSCOPY, DIAGNOSTIC (RECTUM) 11/02/2021 colon polyp, diverticulosis, repeat 3 yrs / COLONOSCOPY FLEXIBLE PROXIMAL DIAGNOSTIC performed by Nandini Cabral DO at [facility] DENTAL SURGERY PROCEDURE NEC teeth EGD, FLEXIBLE, DIAGNOSTIC 2005 EGD, FLEXIBLE, DIAGNOSTIC 11/15/2022 z-line regular 35cm from incisors, normal scope / no specimens collected / ESOPHAGOGASTRODUODENOSCOPY (EGD), FLEXIBLE, TRANSORAL, DIAGNOSTIC performed by Eric Reis MD at [facility] INFORMATION 1990 bladder tact [facility] LIGATE/CUT OVIDUCT(S) 1977 bilateral OTHER 04/21/2022 back surgery , Dr. Tamayo [place] BLEPHAROPLASTY UPPER EYELID W/EXCESSIVE SKIN Bilateral 10/06/2021 Dr. RAMIREZ BLEPHAROPLASTY UPPER EYELID W/EXCESSIVE SKIN Bilateral 10/06/2021 Dr Bethea, blepharoplasty both upper eyelids [place] UNLISTED PROCEDURE SPINE [place] UNLISTED PROCEDURE SPINE 04/2022 [facility] REMOVAL OF APPENDIX 1977 with TL REMOVE GALLBLADDER 2007 Dr. Rivero REPAIR BLADDER DEFECT 1981 TOTAL ABD HYSTERECTOMY W/WO REMOVAL OF TUBE(S) 1988 PAH Review of patient's allergies indicates: Allergen Reactions Atorvastatin Other reaction(s): Leg cramps Codeine Rash Esomeprazole Magnesium Other reaction(s): GI Pain Hydrocodone Other reaction(s): Itch Lisinopril Cough Other reaction(s): Cough Morphine Other reaction(s): Rash Rofecoxib Other reaction(s): GI Sulfa Antibiotics Nausea--side effect Other reaction(s): Nausea Other reaction(s): Nausea Morphine And Codeine Rash Social History Socioeconomic History Marital status: Spouse name: Not on file Number of children: 3 Years of education: Not on file Highest education level: Not on file Occupational History Occupation: aide at assisted living Comment: retired Tobacco Use Smoking status: Never Smokeless tobacco: Never Vaping Use Vaping status: Never Used Substance and Sexual Activity Alcohol use: No Drug use: No Sexual activity: Not Currently Partners: Male Other Topics Concern Service No Blood Transfusions No Caffeine Concern No Occupational Exposure No Hobby Hazards No Sleep Concern Yes Stress Concern Yes Weight Concern Yes Special Diet No Back Care Not Asked Exercise No Bike Helmet Not Asked Seat Belt Yes Self-Exams Not Asked Social History Narrative Social Determinants of Health Financial Resource Strain: Not on file Food Insecurity: No Food Insecurity (09/07/2023) Hunger Vital Sign Worried About Running Out of Food in the Last Year: Never true Ran Out of Food in the Last Year: Never true Transportation Needs: Not on file Physical Activity: Not on file Stress: Not on file Social Connections: Not on file Intimate Partner Violence: Not on file Housing Stability: Not on file Current Outpatient Medications Medication Sig Dispense Refill Cholecalciferol (VITAMIN D3) 2000 UNITS Capsule Take 1 Capsule by mouth in the morning. 1 Cap 0 Multiple Vitamins-Minerals (DAILY MULTIVITAMIN) CAPS 3 daily Melatonin 10 MG Oral Tablet Take 1 Tablet by mouth at bedtime. Vitamin C 1000 MG Oral Tablet Take 1 Tablet by mouth in the morning. Vitamin B 12 500 MCG Oral Tablet Take by mouth. Aspirin 81 MG Oral Tablet Chewable Take 1 Tablet by mouth in the morning. with food.. 100 Tab 5 Acetaminophen 325 MG Oral Tablet Take by mouth every 4 hours as needed for Pain, Mild or Pain, Moderate. 100 Tablet 1 D-Mannose 500 MG Oral Capsule Once daily (OTC) Polyethylene Glycol 3350 17 GM/SCOOP Oral Powder (MiraLax) Dissolve one heaping tablespoon in 8 ounces of water or juice. Twice Daily as needed Levothyroxine Sodium 88 MCG Oral Tablet (Levoxyl) Take 1 Tablet by mouth daily first thing in the morning. 100 Tablet 3 Myrbetriq 50 MG Oral Tablet Extended Release 24 Hour (Mirabegron ER) TAKE ONE TABLET BY MOUTH EVERYMORNING 90 Tablet 3 Atorvastatin Calcium 20 MG Oral Tablet (Lipitor) TAKE ONE TABLET BY MOUTH EVERY DAY IN THE MORNING 100 Tablet 1 traZODone HCl 100 MG Oral Tablet (Desyrel) Take 1 Tablet by mouth at bedtime. Estradiol 0.1 MG/GM Vaginal Cream (Estrace) Apply pea sized amount (0.5 gm ) vaginally every other night. 42.5 g 3 FLUoxetine HCl 20 MG Oral Capsule (PROzac) Take 3 capsules by mouth once a day 270 Capsule 1 traZODone HCl 100 MG Oral Tablet (Desyrel) Take 1 tablet by mouth every night as directed 90 Tablet2 No current facility-administered medications for this visit. O: Blood pressure 122/70, pulse 68, temperature 36.5 C (97.7 F), weight 73.2 kg (161 lb 6.4 oz), SpO2 98%. She has reflexes bilaterally. She has normal strength on the right but left is subjectively a little weaker and she winces when I test her A: Myelomalacia of cervical cord (HCC) (Primary) - MRI BRAIN WITHOUT CONTRAST; Future; Expected date: 02/15/2024 - MRI C SPINE W WO CONTRAST; Future; Expected date: 02/15/2024 - BASIC METABOLIC PANEL; Future; Expected date: 02/08/2024 Degenerative disc disease, cervical - MRI BRAIN WITHOUT CONTRAST; Future; Expected date: 02/15/2024 - MRI C SPINE W WO CONTRAST; Future; Expected date: 02/15/2024 - BASIC METABOLIC PANEL; Future; Expected date: 02/08/2024 Lumbar degenerative disc disease - BASIC METABOLIC PANEL; Future; Expected date: 02/08/2024 Left-sided weakness - MRI BRAIN WITHOUT CONTRAST; Future; Expected date: 02/15/2024 - BASIC METABOLIC PANEL; Future; Expected date: 02/08/2024 Follow Up: Return if symptoms worsen or fail to improve. documented in this encounter Plan of Treatment Upcoming Encounters Date Type Department Care Team (Late st Contact Info) Description 02/15/2024 10:15 AM EDT Imaging Radiology [address] [place] [id number] 02/15/2024 11:00 AM EDT Imaging Radiology [address] [place] [address] 09/09/2024 12:30 PM EST Nurse Only Ancillary [address] [place] [address] [place], Nurse [address] [place] [address] Pending Results Name Type Priority Associated Diagnoses Date /Time BASIC METABOLIC PANEL Lab Routine Myelomalacia of cervical cord (HCC) Degenerative disc disease, cervical Lumbar degenerative disc disease Left-sided weakness 02/08/2024 11:14 AM EDT Scheduled Orders Name Type Priority Associated Diagnoses Orde r Schedule MRI BRAIN WITHOUT CONTRAST Medical Imaging Routine Myelomalacia of cervical cord (HCC) Degenerative disc disease, cervical Left-sided weakness Expected: 02/15/2024, Expires: 03/09/2025 MRI C SPINE W WO CONTRAST Medical Imaging Routine Myelomalacia of cervical cord (HCC) Degenerative disc disease, cervical Expected: 02/15/2024, Expires: 03/09/2025 BASIC METABOLIC PANEL Lab Routine Myelomalacia of cervical cord (HCC) Degenerative disc disease, cervical Lumbar degenerative disc disease Left-sided weakness Expected: 02/08/2024 (Approximate), Expires: 02/07/2025 Scheduled Procedures Name Priority Associated Diagnoses Date/Ti me COLONOSCOPY FLEXIBLE PROXIMA L DIAGNOSTIC Recall History of colon polyps Family history of colon cancer Health Maintenance Due Date Last Done Comments COVID-19 Vaccine ( season) 2023 03/16/2021, 02/19/2021 GFR 10/03/2024 10/03/2023, 02/03, 11/29/2022, Additional history exists TSH 10/03/2024 10/03/2023, 11/03, 04/29/2022, Additional history exists Colonoscopy 11/02/2024 11/02/2021, 0309/2021, 11/16/2015, Additional history exists Albumin/Creatinine Ratio 10/03/2026 [...] Visit Diagnoses Diagnosis Myelomalacia of cervical cord (HCC)- Primary Other myelopathy Degenerative disc disease, cervical Degeneration of cervical intervertebral disc Lumbar degenerative disc disease Degeneration of lumbar or lumbosacral intervertebral disc Left-sided weakness Muscle weakness (generalized) documented in this encounter Advance Directives Documents on File Type Date Recorded Patient Echo Vascular Technologist Expl anation Advance Directives and Living Will [...] patient or by statute hierarchy) Care Teams Ear Pull Machine Operator Relationship Specialty Start Date End Date Roxana Coleman DO [address] [place] [address] [place] [id number] PCP - General Internal Medicine 08/10/22 documented as of this encounter
--- OUTSIDE RECORDS SUMMARY | 2024-03-15 14:40 | External Medical Summary | Summary of Care ---
Author Name Unknown Organization [facility] [address] [facility] [address] Phone [phone] Care Team Providers Care Compliance Lead Name Role Phone Roxana Coleman Primary Care Provider Encounter Details Date Type Department Care Team (Late st Contact Info) Description 03/13/2024 10:20 AM EDT Telemedicine [facility] [address] [place] [id number] Taylor Parrish PA-C [address] [place] [id number] Sinus congestion* Allergies Active Allergy Reactions Criticality Noted Date [...] as of this encounter (statuses as of 03/13/2024) Medications Medication Sig Dispensed Refills Start Date End Date Status Cholecalciferol (VITAMIN D3) 2000 UNITS Capsule Take 1 Capsule by mouth in the morning. 1 Cap 0 08/13/2015 Active Multiple Vitamins-Minerals (DAILY MULTIVITAMIN) CAPSIndications:in am 3 daily 08/08/2017 Active Melatonin 10 MG Oral Tablet Take 1 Tablet by mouth at bedtime. Active Vitamin C 1000 MG Oral Tablet Take 1 Tablet by mouth in the morning. Active Vitamin B 12 500 MCG Oral TabletIndications: in am Take by mouth. 01/15/2021 Active Aspirin [...] as directed 90 Tablet 2 02/13/2024 Active Amoxicillin-Pot Clavulanate 875-125 MG Oral Tablet (Augmentin)Indicat ions:Sinus congestion Take 1 Tablet by mouth in the morning and 1 Tablet before bedtime. Do all this for 10 days. 20 Tablet 03/13/2024 03/23/2024 Active documented as of this encounter (statuses as of 03/13/2024) Active Problems Problem Noted Date Diagnosed Date [...] as of this encounter (statuses as of 03/13/2024) Resolved Problems Problem Noted Date Diagnosed Date Resolved Date Parathyroid abnormality 03/08/2022 09/1 12/2021 Hypertensive kidney disease with stage 3a chronic kidney disease 01/12/2022 02/28/2023 Chronic kidney disease, stage 3a 08/16/2021 02/28/2023 Overview: Per CKD protocol Syncope and collapse 01/15/2021 023 Overview: [id number] Has had extensive evaluation including brain MRI, [...] as of this encounter (statuses as of 03/13/2024) Immunizations Name Administration Dates Next Due COVID-19 [...] money to get more. Never true 09/07/2023 Childcare Answer Date Recorded Do you feel overwhelmed with taking care of a child, family member or friend? No 09/07/2023 Does your family need help f inding childcare? (Household - for ages 0-17 years) Not on file 09/07/2023 Clothing Answer Date Recorded Have you been unable to get clothing when it was really needed? No 09/07/2023 Is your family able to get c lothes or diapers when needed? (Household - for ages 0-17 years) Not on file 09/07/2023 Personal Safety Answer Date Recorded Do you feel unsafe or have concerns for your saf ety? No 09/07/2023 Do you have concerns for you r family's safety? (Household - for ages 0-17 years) Not on file 09/07/2023 Utilities Answer Date Recorded Do you have trouble paying y our heating, water, or electric bill? No 09/07/2023 Is your family able to pay t he heat, water, or electric bill? (Household - for ages 0-17 years) Not on file 09/07/2023 Does your family have access to good internet? (Household - for ages 0-17 years) Not on file 09/07/2023 Employment Status Answer Date Recorded Are you unemployed or without regular income? No 09/07/2023 Does the household have a re gular source of income? (Household - for ages 0-17 years) Not on file 09/07/2023 Social Connections Answer Date Recorded How often do you feel lonely or isolated from th ose around you? Rarely 09/07/2023 Financial Resource Strain Answer Date R ecorded Do you have any trouble payi ng for your medications, or do you think you might in the future? No 09/07/2023 Does your family have troubl e paying for medicine? (Household - for ages 0-17 years) Not on file 09/07/2023 Transportation Needs Answer Date Record ed READ ONLY Do you have troubl e getting a ride to medical visits or work? Never True 09/07/2023 Does your family have a hard time getting a ride to doctors visits? (Household - for ages 0-17 years) Not on file 09/07/2023 Has lack of transportation k ept you from medical appointments, meetings, work, or from getting things needed for daily living? Check all that apply. (Adult - for ages 18 years and over) Not on file 09/07/2023 Do you (or your family) have trouble finding or paying for a ride (transportation)? (Household - for ages 0-17 years) Not on file 09/07/2023 Housing Stability Answer Date Recorded Do you currently live in a s helter or have no steady place to sleep at night? No 09/07/2023 READ ONLY Do you think you a re at risk of becoming homeless? No 09/07/2023 Does your family worry about paying for your home or becoming homeless? (Household - for ages 0-17 years) Not on file 0 09/07/2023 Are you homeless or worried that you might be in the future? (Adult - for ages 18 years and over) Not on file Are you (or your family) dru eless or worried that you might be in the future? (Household - for ages 0-17 years) Not on file Food Insecurity Answer Date Recorded Do you need food for this week? No 09/07/2023 Are you able to get enough f ood for your family? (Household - for ages 0-17 years) Not on file 09/07/2023 Does your family need food t his week? (Household - for ages 0-17 years) Not on file 09/07/2023 Do you always have enough fo od for your family? (Household - for ages 0-17 years) Not on file 09/07/2023 Sex and Gender Information Value Date Recorded Sex Assigned at Female 09/06/2022 1:06 PM EST Gender Identity Female 09/06/2022 1:06 PM EST Sexual Orientation Straight 09/06/2022 1: 06 PM EST Job Start Date Occupation Industry Not on file Not on file Not on file documented as of this encounter Progress Notes * Taylor Parrish PA-C - 03/13/2024 10:08 AM EDT Images from the original note were not included. History of Present Illness Rk Bonilla is a 73 year old female that presents for No chief complaint on file. 73 year old female that presents today for video visit Symptoms include: sneezing, rhinorrhea, head/sinus pressure , nasal congestion Sinuses are sore to touch Symptom started 3 days ago Severity of Symptoms: worsening since symptoms started Unable to sleep due to congestion Modifying Factors (what was done since onset of symptoms): ibuprofen and allergy pills without relief all areas negative except as mentioned under HPI Physical Exam There were no vitals filed for this visit. Physical Exam Constitutional: Appearance: Normal appearance. Pulmonary: Effort: Pulmonary effort is normal. Neurological: Mental Status: She is alert. Psychiatric: Mood and Affect: Mood normal. Behavior: Behavior normal. Assessment and Plan Sinus congestion Continue with symptomatic care Discussed OTC coricidin Will add on abx given worsening symptoms Advised in person eval with PCP office . Red flag sx reviewed. - Amoxicillin-Pot Clavulanate 875-125 MG Oral Tablet (Augmentin); Take 1 Tablet by mouth in the morning and 1 Tablet before bedtime. Do all this for 10 days. Wrap-Up Patient agreed with and understood plan. Discussed any new medications and side effects. All questions answered. Advised to call with new concerns. Taylor Parrish PA-C [facility] [address] [id number] Telemedicine: Patient location: HOME. I was in a hospital or clinic location. After connecting through televideo, patient was verified with two unique identifiers. Patient (or authorized legal medical billing representative) wasthen informed that this was a Telemedicine visit and being conducted confidentially over secure lines. Methods to assure confidentiality were taken. Patient acknowledged consent and understanding of privacy and security of the Telemedicine visit. The patient agreed to participate. documented in this encounter Plan of Treatment Upcoming Encounters Date Type Department Care Team (Late st Contact Info) Description 09/09/2024 12:30 PM EST Nurse Only Ancillary [address] [place] [address] [place], Nurse [address] [place] [address] Scheduled Procedures Name Priority Associated Diagnoses Date/Ti me COLONOSCOPY FLEXIBLE PROXIMA L DIAGNOSTIC Recall History of colon polyps Family history of colon cancer Health Maintenance Due Date Last Done Comments COVID-19 Vaccine ( season) 2023 03/16/2021, 02/19/2021 Depression Monitoring 09/07/2024 09/07/2023 TSH 10/03/2024 10/03/2023, 11/03, 04/29/2022, Additional history exists Colonoscopy 11/02/2024 11/02/2021, 03/09/2021, 11/16/2015, Additional history exists GFR 02/07/2025 02/08/2024, 09/06, 02/28/2023, Additional history exists Albumin/Creatinine Ratio 10/03/2026 10/03/2023, 02/03 DXA Scan 03/11/2028 03/11/2021, 06/10/2015 DTaP,Tdap,and Td Vaccines (2 - Td or Tdap) 07/03/2030 07/03/2020 Pneumococcal Vaccine: 65+ Years Completed 10/24/2016, 02/09/2015 RETIRED - COLONOSCOPY-EVERY 5 YRS AGES 18-100 Discontinued 11/02/2021, 11/02/2021, 11/16/2015, Additional history exists Zoster Vaccines Discontinued 08/10/2022, 01/25/2022 HPV (Gardasil) Vaccine Aged Out No lo nger eligible based on patient's age to complete this topic Hepatitis B Vaccine Aged Out No longe r eligible based on patient's age to complete this topic MENINGOCOCCAL (MENACTRA/MENVEO) Aged Out No longer eligible based on patient's age to complete this topic documented as of this encounter Medical Devices Not on filedocumented as of this encounter Visit Diagnoses Diagnosis Sinus congestion- Primary Other diseases of nasal cavity and sinuses documented in this encounter Advance Directives Documents on File Type Date Recorded Patient Science Faculty Member Expl anation Advance Directives and Living Will [...] patient or by statute hierarchy) Care Teams Compliance Lead Relationship Specialty Start Date End Date Roxana Coleman DO [address] [place] [address] [place] [address] PCP - General Internal Medicine 08/10/22 documented as of this encounter
--- OUTSIDE RECORDS SUMMARY | 2024-03-15 14:41 | External Medical Summary | Summary of Care ---
Author Name Unknown Organization [facility] Address [address] [place] [address] Phone [phone] Care Team Providers Care Moth Proofer Name Role Phone Roxana Coleman DO Primary Care Provider Reason for Visit * Reason Onset Date Comments Appointment 07/17/2023 Encounter Details Date Type Department Care Team (Late st Contact Info) Description 07/17/2023 Telephone Family Medicine [address] [phone] Roxana Coleman DO [address] [place] [address] [place] [address] Appointment Allergies Active Allergy Reactions Criticality Noted Date [...] as of this encounter (statuses as of 10/16/2023) Medications Medication Sig Dispensed Refills Start Date [...] for Dizziness. 30 Tab 1 10/31/2019 Active Melatonin 10 MG Oral Tablet Take [...] the morning. 100 Tablet 3 06/05/2023 Active Estradiol 0.1 MG/GM Vaginal Cream (Estrace) Apply pea sized (0.5 gm) amount vaginally at bedtime. 42.5 g 3 10/05/2022 4 Discontinue d(Medicatio n List Clean Up) Atorvastatin Calcium 20 MG Oral Tablet (Lipitor) TAKE ONE TABLET BY MOUTH EVERY DAY IN THE MORNING 100 Tablet 1 02/07/2023 4 Discontinue d(Refill) hydrOXYzine HCl 25 MG Oral Tablet TAKE ONE TABLET BY MOUTH TWICE A DAY NEEDED FOR ANXIETY 180 Tablet 2 01/16/2023 4 Discontinue d(Medicatio n List Clean Up) Mirabegron ER 50 MG Oral Tablet Extended Release 24 Hour (Myrbetriq) TAKE ONE TABLET BY MOUTH EVERY MORNING 90 Tablet 3 11/09/2022 3 Discontinue d(Refill) FLUoxetine HCl 20 MG Oral Capsule (PROzac) Take 3 capsule by mouth once a day 270 Capsule 1 04/17/2023 3 Discontinue d(Refill) traZODone HCl 100 MG Oral Tablet (Desyrel) Take 1 tablet by mouth every night as needed for insomnia 90 Tablet 1 04/17/2023 4 Discontinue d(Patient preference/ discontinua tion) Ketorolac Tromethamine 10 MG Oral Tablet (Toradol)Indicatio ns:Contusion of ribs, right, initial encounter Take 1 Tablet by mouth 4 times a day as needed for Pain, Severe. Do not take for longer than 5 days 20 Tablet 0 07/17/2023 4 Discontinue d(Medicatio n List Clean Up) documented as of this encounter (statuses as of 10/16/2023) Active Problems Problem Noted Date Diagnosed Date Multiple thyroid nodules 06/05/2023 Major depressive disorder, recurrent, mild 01/25 Intermittent asthma with rel iever use up to twice per week without complication 01/25/2022 Post-traumatic stress disorder, chronic 01/26/20 22 Statin medication declined by patient 07/27/2021 Blepharochalasis of both upper eyelids 1 Myelomalacia of cervical cord 03/11/2021 HTN, goal [...] as of this encounter (statuses as of 10/16/2023) Resolved Problems Problem Noted Date Diagnosed Date Resolved Date Parathyroid abnormality 03/08/202205/05 Hypertensive kidney disease with stage 3a chronic kidney disease 01/12/2022 02/28/2023 Chronic kidney disease, stage 3a 08/16/2021 02/28/2023 Overview: Per CKD protocol Syncope and collapse 01/15/2021 023 Overview: [id number] Has had extensive evaluation including brain MRI, [...] as of this encounter (statuses as of 10/16/2023) Immunizations Name Administration Dates Next Due COVID-19 mRNA, LNP-s, No Pre serve, 2-Dose Series ([employer]) 03/16/2021,02/19/2021 Pneumococcal Conjugate Vacc, 13 Valent (Prevnar) [...] encounter Miscellaneous Notes * Telephone Encounter - Nida Hillman LPN - 07/17/2023 8:03 AM EST Patient is calling. Fell last Monday. Tripped over the sweeper. Landed on right side. She is having pain in her right shoulder and right breast. 6 out of 10. Denies shortness of breath.Having problems lifting right shoulder. No appts. Today. Refuses ER. Said she won't go there. Can't afford it. Placed tomorrow with Yue Nichole @ 1 p.m. Called the office and spoke to Geovanna. Offered ortho walk in clinic at [facility] as per her advice.Patient will go there today. Appt. Cancelled for tomorrow. documented in this encounter Plan of Treatment Upcoming Encounters Date Type Department Care Team (Late st Contact Info) Description 10/26/2023 9:05 AM EST Office Visit Urogynecology [facility] [address] [place] [address] Dewey Fuentes MD [address] [place] [address] Nurse Rose Broussard [address] [place] [address] 12/20/2023 10:30 AM EDT Office Visit Family Medicine [address] [place] [phone] Roxana Coleman, [address] [place] [address] 09/09/2024 12:30 PM EST Nurse Only Ancillary [address] [place] [address] [place], Nurse [address] [place] [address] Scheduled Procedures Name Priority Associated Diagnoses Date/Ti me COLONOSCOPY FLEXIBLE PROXIMA L DIAGNOSTIC Recall History of colon polyps Family history of colon cancer Health Maintenance Due Date Last Done Comments COVID-19 Vaccine (2022- season) 2023 03/16/2021, 02/19/2021 Depression Screening 09/07/2024 09/07/2023 GFR [...] Documents on File Type Date Recorded Patient Security Support Analyst Expl anation Advance Directives and Living Will [...] patient or by statute hierarchy) Care Teams Moth Proofer Relationship Specialty Start Date End Date Roxana Coleman DO [address] [place] [address] [place] [phone] PCP - General Internal Medicine 08/10/22 documented as of this encounter
--- OUTSIDE RECORDS SUMMARY | 2024-03-15 14:41 | External Medical Summary | Summary of Care ---
Author Name Unknown Organization [facility] Address [address] [place] [address] Phone [phone] Care Team Providers Care Access Specialist Name Role Phone Roxana Coleman Primary Care Provider Reason for Visit * Reason Comments Medication Refill Encounter Details Date Type Department Care Team (Late st Contact Info) Description 10/07/2023 Refill Family Medicine [address] [phone] Dillan Worrell MD [address] [place] [address] [place] [address] Allergies Active Allergy Reactions Criticality Noted Date [...] as of this encounter (statuses as of 10/09/2023) Medications Medication Sig Dispensed Refills Start Date End Date Status Cholecalciferol (VITAMIN D3) 2000 UNITS Capsule Take 1 Capsule by mouth in the morning. 1 Cap 0 08/13/2015 Active Multiple Vitamins-Minerals (DAILY MULTIVITAMIN) CAPSIndications:i n am 3 daily 0 08/08/2017 Active meclizine (ANTIVERT) 12.5 MG TabletIndications :Benign [...] Oral TabletIndications :in am Take by mouth. 0 01/15/2021 Active [...] the morning. 100 Tablet 3 06/05/2023 Active FLUoxetine HCl 20 MG Oral Capsule (PROzac) Take 3 capsules by mouth once daily 270 Capsule 1 08/15/2023 Active Myrbetriq 50 MG Oral Tablet Extended Release 24 Hour (Mirabegron ER) TAKE ONE TABLET BY MOUTH EVERY MORNING 90 Tablet 3 08/23/2023 4 Active Mirtazapine 7.5 MG Oral Tablet (Remeron) Take 1 Tablet by mouth at bedtime. 0 Active Rexulti 0.5 MG Oral Tablet (Brexpiprazole)In dications:HTN, goal below 140/90,Multiple thyroid nodules,Vitamin D deficiency,Hypoth yroidism (acquired),Fibrom yalgia Take by mouth daily. 0 10/03/2023 Active Atorvastatin Calcium 20 MG Oral Tablet (Lipitor) TAKE ONE TABLET BY MOUTH EVERY DAY IN THE MORNING 100 Tablet 1 10/09/2023 5 Active Atorvastatin Calcium 20 MG Oral Tablet (Lipitor) TAKE ONE TABLET BY MOUTH EVERY DAY IN THE MORNING 100 Tablet 1 02/07/2023 4 Discontinue d(Refill) documented as of this encounter (statuses as of 10/09/2023) Active Problems Problem Noted Date Diagnosed Date [...] SVT (supraventricular tachycardia) Overview: Zio monitor 08/21 IRDGE (generalized anxiety disorder) 07/12/2017 Fibromyalgia 08/13/2015 Vitamin [...] as of this encounter (statuses as of 10/09/2023) Resolved Problems Problem Noted Date Diagnosed Date Resolved Date Parathyroid abnormality 03/08/202205/05 Hypertensive kidney disease with stage 3a chronic kidney disease 01/12/2022 02/28/2023 Chronic kidney disease, stage 3a 08/16/2021 02/28/2023 Overview: Per CKD protocol Syncope and collapse 01/15/2021 023 Overview: [id number] Has had extensive evaluation including brain MRI, [...] as of this encounter (statuses as of 10/09/2023) Immunizations Name Administration Dates Next Due COVID-19 [...] encounter Miscellaneous Notes * Telephone Encounter - Taylor Segura, [facility] - 10/09/2023 5:09 AM ESTSigned Prescriptions: Disp Refills Atorvastatin Calcium 20 MG Oral Tablet (Li*100 Ta*1 Sig: TAKE ONE TABLET BY MOUTH EVERY DAY IN THE MORNING Authorizing Provider: CHANTEL ROQUE Ordering User: TAYLOR SEGURA * Telephone Encounter - Taylor Segura [facility] - 10/09/2023 5:07 AM EST Per 10/04/23 lab result note from provider: I know you stopped taking the atorvastatin but it would be a good idea to get back on this. Refill authorized as requested Thank You, aTylor Segura [facility] Clinical Pharmacist [facility] ([facility]) [phone] 10/09/2023, 5:08 AM documented in this encounter Plan of Treatment Upcoming Encounters Date Type Department Care Team (Late st Contact Info) Description 12/20/2023 10:30 AM EDT Office Visit Family Medicine [address] [place] [phone] Roxana Coleman[address] [place] [address] 09/09/2024 12:30 PM EST Nurse Only Ancillary [address] [place] [address] [place], Nurse [address] [place] [phone] Scheduled Procedures Name Priority Associated Diagnoses Date/Ti me COLONOSCOPY FLEXIBLE PROXIMA L DIAGNOSTIC Recall History of colon polyps Family history of colon cancer Health Maintenance Due Date Last Done Comments COVID-19 Vaccine ( season) 2023 03/16/2021, 02/19/2021 Depression Screening 09/07/2024 09/07/2023 GFR 10/03/2024 10/03/2023, 02/03, 11/29/2022, Additional history exists TSH 10/03/2024 10/03/2023, 11/03, 04/29/2022, Additional history exists COLONOSCOPY-EVERY 3 YRS AGES 18-100 11/02/2024 11/02/2021, 11/02/2021, 11/16/2015, Additional history exists Albumin/Creatinine Ratio 10/03/2026 10/03/2023, 0603/2023 DXA Scan 03/11/2028 03/11/2021, 06/10/2015 DTaP,Tdap,and Td [...] Documents on File Type Date Recorded Patient Desktop Manager Expl anation Advance Directives and Living Will [...] patient or by statute hierarchy) Care Teams Access Specialist Relationship Specialty Start Date End Date Roxana Coleman DO [address] [place] [address] [place] [address] PCP - General Internal Medicine 08/10/22 documented as of this encounter
--- OUTSIDE RECORDS SUMMARY | 2024-03-15 14:41 | External Medical Summary | Summary of Care ---
Author Name Unknown Organization [facility] [address] [facility] [address] Phone [phone] Care Team Providers Care Supervisor Plasma Name Role Phone Roxana Coleman Primary Care Provider [phone] Reason for Visit * Reason Comments Follow Up Encounter Details Date Type Department Care Team (Late st Contact Info) Description 10/26/2023 9:05 AM EST Office Visit Urogynecology Kellie Broussard [address] [place] [address] Dewey Fuentes MD [address] [place] [address] Nurse Rose Broussard [address] [place] [address] Urge incontinence*; OAB (overactive bladder); Atrophic vaginitis Allergies Active Allergy Reactions Criticality Noted Date [...] as of this encounter (statuses as of 10/26/2023) Medications Medication Sig Dispensed Refills Start Date [...] other night. 42.5 g 3 10/26/2023 Active documented as of this encounter (statuses as of 10/26/2023) Active Problems Problem Noted Date Diagnosed Date [...] as of this encounter (statuses as of 10/26/2023) Resolved Problems Problem Noted Date Diagnosed Date Resolved Date Parathyroid abnormality 03/08/202205/05 Hypertensive kidney disease with stage 3a chronic kidney disease 01/12/2022 02/28/2023 Chronic kidney disease, stage 3a 08/16/2021 02/28/2023 Overview: Per CKD protocol Syncope and collapse 01/15/2021 023 Overview: 9351-8022 Has had extensive evaluation including brain MRI, [...] Prehypertension 12/31/2014 01/22/2021 BMI 33.0-33.9,adult 12/31/2014 08/10/20 Carpal tunnel syndrome, bilateral 04/26/2007 08/10/2022 Mixed dyslipidemia 05/29/2003 5 ADJ DISORDER W/DEPRES MOOD 05/29/2003 0 01/08/2015 documented as of this encounter (statuses as of 10/26/2023) Immunizations Name Administration Dates Next Due COVID-19 mRNA, LNP-s, No Pre serve, 2-Dose Series ([employer] 03/16/2021,02/19/2021 Pneumococcal Conjugate Vacc, 13 Valent (Prevnar) 02/09/2015 Pneumococcal Polysaccharide PPV23 (Pneumovax) Zoster Vaccine Recombinant (Shingrix) 08/10/2022 ,01/25/2022 documented as of this encounter Social History Tobacco Use Types Packs/Day Years Used Date Smoking Tobacco: Never Smokeless Tobacco: Never Tobacco Cessation:Counseling Given: Not Answered Alcohol Use Standard Drinks/Week Comments No 0 [...] Sign Reading Time Taken Comments Blood Pressure 114/76 10/26/2023 9:14 AM EST Pulse - - Temperature - - Respiratory Rate - - Oxygen Saturation - - Inhaled Oxygen Concentration - - Weight 73.5 kg (162 lb) 10/26/2023 9:14 AM EST Height 152.4 cm (5') 10/26/2023 9:14 AM EST Body Mass Index 31.64 10/26/2023 9:14 AM EST documented in this encounter Progress Notes * Dewey Fuentes MD - 10/26/2023 9:17 AM EST Rk Bonilla presents for a follow up visit at [facility]. She was previously seen for N39.41 Urge incontinence (primary encounter diagnosis) N32.81 OAB (overactive bladder) N95.2 Atrophic vaginitis Since last seen, she was doing well until September where she suddenly developed increased frequency,urgency, nocturia, and urge incontinence. She does have history of JEANNINE, but it's the urge incontinence that bothers her. When reviewing her medication list today, it appears that she stopped using the topical estrogen cream around the same time her symptoms worsened. Allergies: Review of patient's allergies indicates: Allergen Reactions Atorvastatin Other reaction(s): Leg cramps Codeine Rash Esomeprazole Magnesium Other reaction(s): GI Pain Hydrocodone Other reaction(s): Itch Lisinopril Cough Other reaction(s): Cough Morphine Other reaction(s): Rash Rofecoxib Other reaction(s): GI Sulfa Antibiotics Nausea--side effect Other reaction(s): Nausea Other reaction(s): Nausea Morphine And Related Rash Active Medications: Current Outpatient Medications Medication Sig Dispense Refill [...] the morning. with food.. 100 Tab 5 D-Mannose 500 MG Oral Capsule Once daily (OTC) Polyethylene Glycol 3350 17 GM/SCOOP Oral Powder (MiraLax) Dissolve one heaping tablespoon in 8 ounces of water or juice. Twice Daily as needed Levothyroxine Sodium 88 MCG Oral Tablet (Levoxyl) Take 1 Tablet by mouth daily first thing in the morning. 100 Tablet 3 FLUoxetine HCl 20 MG Oral Capsule (PROzac) Take 3 capsules by mouth once daily 270 Capsule 1 Myrbetriq 50 MG Oral Tablet Extended Release [...] vaginally every other night. 42.5 g 3 meclizine (ANTIVERT) 12.5 MG Tablet Take 1 Tab by mouth 3 times a day as needed for Dizziness. (Patient not taking: Reported on 10/26/2023) 30 Tab 1 Probiotic Acidophilus BioBeads Oral Capsule Take 1 Cap by mouth daily. (Patient not taking: Reported on 10/26/2023) Acetaminophen 325 MG Oral Tablet Take by mouth every 4 hours as needed for Pain, Mild or Pain, Moderate. 100 Tablet 1 Mirtazapine 7.5 MG Oral Tablet (Remeron) Take 1 Tablet by mouth at bedtime. (Patient not taking: Reported on 10/26/2023) Rexulti 0.5 MG Oral Tablet (Brexpiprazole) Take by mouth daily. (Patient not taking: Reported on 10/26/2023) No current facility-administered medications for this visit. ROS: No Change since previous visit Blood pressure 114/76, height 1.524 m (5'), weight 73.5 kg (162 lb). Blood pressure %annalise are not available for patients who are 18 years or older. Body mass index is 31.64 kg/m. EXAM: Well developed well nourished female in no apparent distress. Alert oriented x3 HEART: Normal peripheral pulses, Edema neg THYROID: no obvious neck masses LUNG: No increased respiratory effort ABD: Soft, NT, ND, no masses PELVIC EXAM: Ext gen: Normal external female genitalia Vagina: No vaginal lesions or abnormal discharge, atrophy BIMANUAL EXAM: no masses, NT Levator ani muscle strength 4. No tenderness elicited on palpation Rectovaginal exam: perianal area normal, anus normal, digital rectal exam deferred The data/ labs below were reviewed: PVR: 19 Via bladder scan Results for orders placed or performed in visit on 10/03/23 LIPID PANEL WITH DIRECT LDL IF TG IS HIGH Result Value Ref Range Triglycerides 71 <=174 mg/dL Cholesterol 251 (H) <200 mg/dL HDL Cholesterol 82 >49 mg/dL Non-HDL Cholesterol 169 (H) <=159 mg/dL LDL Cholesterol 155 (H) <=129 mg/dL COMPREHENSIVE METABOLIC PANEL Result Value Ref Range BUN 28 (H) 6 - 20 mg/dL Creatinine 0.9 0.5 - 1.0 mg/dL Estimated Glomerular Filtration Rate 68 >=60 mL/min Sodium 140 135 - 146 mmol/L Potassium 4.3 3.5 - 5.1 mmol/L Chloride 105 98 - 107 mmol/L CO2 28 22 - 32 mmol/L Anion Gap 7 7 - 15 mmol/L Glucose 103 70 - 120 mg/dL Albumin 4.2 3.8 - 5.0 g/dL AST 32 10 - 35 U/L Alkaline Phosphatase 94 35 - 130 U/L Bilirubin, Total 0.3 <=1.2 mg/dL Calcium 8.7 8.4 - 10.2 mg/dL Protein 7.0 6.0 - 8.3 g/dL ALT 25 10 - 35 U/L TSH WITH FREE T4 IF INDICATED Result Value Ref Range TSH 3.70 0.27 - 4.20 uIU/mL ALBUMIN / CREATININE RATIO, URINE Result Value Ref Range Albumin, Random Urine <1.20 mg/dL Creatinine, Random Urine 156 mg/dL Albumin / Creatinine Ratio, Urine <8 <30 mg/g Creat MYCODE SST1 Result Value Ref Range MyCode Specimen Freezing of extracted DNA, whole blood and/or serum. MYCODE SST2 Result Value Ref Range MyCode Specimen Freezing of extracted DNA, whole blood and/or serum. ANEMIA CBC Result Value Ref Range WBC 5.49 4.00 - 10.80 K/uL RBC 4.75 3.85 - 5.15 M/uL HGB 14.5 12.0 - 15.3 g/dL HCT 46.2 (H) 36.0 - 45.2 % MCV 97.3 81.5 - 97.5 fL MCH 30.5 27.0 - 34.0 pg MCHC 31.4 32.0 - 36.0 g/dL RDW 12.6 11.5 - 15.5 % PLT 298 140 - 400 K/uL MPV 9.9 6.6 - 11.1 fL nRBCs 0 <=0 /100 WBCs DIFFERENTIAL, AUTOMATED Result Value Ref Range WBC 5.49 4.00 - 10.80 K/uL Neutrophils % 47.5 40.0 - 75.0 % Lymphocytes % 36.6 18.0 - 42.0 % Monocytes % 12.4 (H) 1.0 - 11.0 % Eosinophils % 2.6 0.0 - 6.0 % Basophils % 0.5 0.0 - 2.0 % Immature Granulocytes % 0.4 0.0 - 2.0 % Absolute Neutrophils 2.61 1.80 - 7.70 K/uL Absolute Lymphocytes 2.01 1.00 - 4.80 K/ul Absolute Monocytes 0.68 0.00 - 1.10 K/uL Absolute Eosinophils 0.14 0.00 - 0.70 K/uL Absolute Basophils 0.03 0.00 - 0.20 K/uL Absolute Immature Granulocytes 0.02 0.00 - 0.20 K/uL Impression: This is a 73 year old with Urge incontinence (Primary) - URINALYSIS, REFLEX TO CULTURE (NOT FOR NEUTROPENIC PATIENTS) OAB (overactive bladder) - URINALYSIS, REFLEX TO CULTURE (NOT FOR NEUTROPENIC PATIENTS) Atrophic vaginitis - URINALYSIS, REFLEX TO CULTURE (NOT FOR NEUTROPENIC PATIENTS) Other orders - Estradiol 0.1 MG/GM Vaginal Cream (Estrace); Apply pea sized amount (0.5 gm ) vaginally every other night. I reviewed the possibility of urinary tract infection. Will check urine analysis with culture reflex. I explained that the purpose of the estrogen cream was to improve atrophy, improve the micro-biome,and studies have shown that reduces UTI's. We agreed to restart the estrogen cream. Return in 4 weeks. If the urine culture is negative, and the estrogen cream does not help, we discussed Botox cystoscopy or sacral neuromodulation. I spent a total of 30 minutes on the date of service in preparation, delivery, and documentation ofthe care provided to Rk Bonilla excluding any time spent in the performance of separately billed services. Dewey Fuentes MD 10/26/2023 9:18 AM documented in this encounter Nursing Notes * Stormy Chau MED ASSIST - 10/26/2023 9:06 AM EST Last seen 12/21/22 for Urge Incontinence and OAB started Myrbetriq and d mannose and was doing well. Incontinence Started September 2023 quickly and progressed quickly until she stopped hydrating. Has tried not hydrating, wearing pull ups at night to manage incontinence. Wearing pads yes 2-4 in 24 hours JEANNINE yes Urgency yes Frequency 10 x daily Nocturia. 2 x nightly documented in this encounter Plan of Treatment Upcoming Encounters Date Type Department Care Team (Late st Contact Info) Description 11/27/2023 8:25 AM EDT Office Visit Urogynecology Kellie Broussard [address] [place] [address] Renetta Palafox PA-C [address] [place] [address] Nurse Rose Broussard [address] [place] [address] 12/20/2023 10:30 AM EDT Office Visit Family Medicine [address] [place] [phone] Roxana Coleman, [address] [place] [address] 09/09/2024 12:30 PM EST Nurse Only Ancillary [address] [place] [address] Movraiey, Nurse [address] [place] [address] Scheduled Procedures Name Priority Associated Diagnoses Date/Ti [...] Not on filedocumented as of this encounter Procedures Procedure Name Priority Date/Time Associated Diagnosis Comments URINALYSIS, REFLEX TO CULTURE Routine 10/26/2023 9:45 AM EST Urge incontinence OAB (overactive bladder) Atrophic vaginitis URINALYSIS, REFLEX TO CULTURE (CUP ONLY) Routine 10/26/2023 9:45 AM EST Urge incontinence OAB (overactive bladder) Atrophic vaginitis URINALYSIS, REFLEX TO CULTURE (NOT FOR NEUTROPENIC PATIENTS) Routine 10/26/2023 9:45 AM EST Urge incontinence OAB (overactive bladder) Atrophic vaginitis documented in this encounter Results * (ABNORMAL) URINALYSIS, REFLEX TO CULTURE (10/26/2023 9:45 AM EST) Color, Urine Yellow Light Yellow, Yellow, Dark Yellow 10/26/2023 11:10 AM EST [facility] Clarity, Urine Clear Clear 10/26/2023 11:10 AM EST [facility] Glucose, Urine Negative Negative mg/dL 10/26/2023 11:10 AM EST [facility] Bilirubin, Urine Negative Negative 10/26/2023 11:10 AM EST [facility] Ketone, Urine Negative Negative mg/dL 10/26/2023 11:10 AM EST [facility] Specific [place], Urine 1.025 1.003 - 1.030 10/26/2023 11:10 AM EST [facility] Blood, Urine Trace(A) Negative 10/26/2023 11:10 AM EST [facility] pH, Urine 6.0 5.0 - 7.5 Units 10/26/2023 11:10 AM EST [facility] Protein, Urine Negative Negative mg/dL 10/26/2023 11:10 AM EST [facility] Urobilinogen, Urine 0.2 0.2, 1.0 mg/dL 10/26/2023 11:10 AM EST [facility] Nitrite, Urine Negative Negative 10/26/2023 11:10 AM EST [facility] Esterase, Urine Negative Negative 10/26/2023 11:10 AM EST [facility] RBC, Urine 0-2 0 - 2 /HPF 10/26/2023 11:10 AM EST [facility] WBC, Urine 0-2 0 - 2 /HPF 10/26/2023 11:10 AM EST [facility] Bacteria, Urine 0-25 0 - 25 /HPF 10/26/2023 11:10 AM EST [facility] Culture, Urine 10/26/2023 11:10 AM EST [facility] Comment:Culture not indicate d by urinalysis results Urine Urine specimen obtained by clean catch procedure / Unknown Non-blood Collection / Unknown 10/26/2023 9:45 AM EST 10/26/2023 10:53 AM EST Dewey Fuentes MD LAB URINE ORDERABLES [facility] [address] [place] [address] * URINALYSIS, REFLEX TO CULTURE (CUP ONLY) (10/26/2023 9:45 AM EST) Urinalysis, Reflex to Culture Specimen Specimen collected and received 10/26/2023 12:01 PM EST [facility] Urine Urine specimen obtained by clean catch procedure / Unknown Non-blood Collection / Unknown 10/26/2023 9:45 AM EST 10/26/2023 10:53 AM EST Dewey Fuentes MD LAB URINE ORDERABLES Performing Organization Address City/[facility]/ZIP Co de Phone Number [facility] [address] [place] [address] documented in this encounter Visit Diagnoses Diagnosis Urge incontinence- Primary OAB (overactive bladder) Hypertonicity of bladder Atrophic vaginitis Postmenopausal atrophic vaginitis documented in this encounter Advance Directives Documents on File Type Date Recorded Patient Umbrella Tipper Machine Expl anation Advance Directives and Living Will [...] patient or by statute hierarchy) Care Teams Supervisor Plasma Relationship Specialty Start Date End Date Roxana Coleman DO [address] [place] [address] [place] [phone] PCP - General Internal Medicine 08/10/22 documented as of this encounter
--- OUTSIDE RECORDS SUMMARY | 2024-03-15 14:41 | External Medical Summary | Summary of Care ---
Author Name Unknown Organization [facility] Address [address] [place] [address] Phone [phone] Care Team Providers Care Human Resources Benefits Assistant Name Role Phone Roxana [place] DO Primary Care Provider [phone] Reason for Visit * Reason Onset Date Comments Medical Records Request 11/17/2023 [facility] Care Encounter Details Date Type Department Care Team (Late st Contact Info) Description 11/17/2023 Telephone Family Medicine [address] [phone] Roxana Coleman DO [address] [place] [address] [place] [phone] [facility] Allergies Active Allergy Reactions Criticality Noted Date [...] as of this encounter (statuses as of 11/17/2023) Medications Medication Sig Dispensed Refills Start Date [...] as of this encounter (statuses as of 11/17/2023) Active Problems Problem Noted Date Diagnosed Date [...] as of this encounter (statuses as of 11/17/2023) Resolved Problems Problem Noted Date Diagnosed Date Resolved Date Parathyroid abnormality 03/08/202205/05 Hypertensive kidney disease with stage 3a chronic kidney disease 01/12/2022 02/28/2023 Chronic kidney disease, stage 3a 08/16/2021 02/28/2023 Overview: Per CKD protocol Syncope and collapse 01/15/2021 023 Overview: [id number] Has had extensive evaluation including brain MRI, [...] as of this encounter (statuses as of 11/17/2023) Immunizations Name Administration Dates Next Due COVID-19 [...] encounter Miscellaneous Notes * Telephone Encounter - Whitney Wilson, IDRIS - 11/17/2023 10:19 AM EDT Rec'd request for records 11/17/23 [facility]. I sent auth to HIM 46- 22 on 11/17/23. To check status of records, please call HIM directly at [phone]. documented in this encounter Plan of Treatment Upcoming Encounters Date Type Department Care Team (Late st Contact Info) Description 11/27/2023 8:25 AM EDT Office Visit Urogynecology Kellie Broussard [address] [place] [address] Renetta Palafox PA-C [address] [place] [address] Nurse Rose Broussard [address] [place] [address] 12/20/2023 10:30 AM EDT Office Visit Family Medicine [address] [place] [phone] [place] [address] 09/09/2024 12:30 PM EST Nurse Only Ancillary [address] [place] [address] Movraiey, Nurse [address] [place] [address] Scheduled Procedures Name Priority Associated Diagnoses Date/Ti [...] Documents on File Type Date Recorded Patient Preassembler And Inspector Expl anation Advance Directives and Living Will [...] patient or by statute hierarchy) Care Teams Human Resources Benefits Assistant Relationship Specialty Start Date End Date Roxana Coleman DO [address] [place] [address] [place] [phone] PCP - General Internal Medicine 08/10/22 documented as of this encounter
--- OUTSIDE RECORDS SUMMARY | 2024-03-15 14:41 | External Medical Summary | Summary of Care ---
Author Name Unknown Organization [facility] Address [address] [place] [address] Phone [phone] Care Team Providers Care Bridge Contractor Name Role Phone ColemanRoxana cleary Primary Care Provider [phone] Reason for Visit * Reason Comments Re-Check Encounter Details Date Type Department Care Team (Late st Contact Info) Description 10/03/2023 8:40 AM EST Office Visit Family Medicine [address] [phone] Yue De La Torre PA-C [address] [place] [address] [place] [address] HTN, goal below 140/90*; Multiple thyroid nodules; Vitamin D deficiency; Hypothyroidism (acquired); Fibromyalgia; Chronic pain of left knee; Paroxysmal SVT (supraventricular tachycardia); Myelomalacia of cervical cord (HCC); Generalized osteoarthritis; Lumbar degenerative disc disease; Hyperlipidemia with target LDL less than 100; RIDGE (generalized anxiety disorder); Major depressive disorder, recurrent, mild (HCC); Intermittent asthma with reliever use up to twice per week without complication Allergies Active Allergy Reactions Criticality Noted Date [...] as of this encounter (statuses as of 10/03/2023) Medications Medication Sig Dispensed Refills Start Date [...] Pain, Moderate. 100 Tablet 1 04/27/2022 Active Atorvastatin Calcium 20 MG Oral Tablet (Lipitor) TAKE ONE TABLET BY MOUTH EVERY DAY IN THE MORNING 100 Tablet 1 02/07/2023 4 Active D-Mannose 500 MG Oral Capsule Once [...] mouth once a day 270 Capsule 1 08/15/2023 Active Myrbetriq 50 [...] Take by mouth daily. 0 10/03/2023 Active traZODone HCl 100 MG Oral Tablet (Desyrel) Take 1 tablet by mouth every night as needed for insomnia 90 Tablet 1 04/17/2023 4 Discontinue d(Patient preference/ discontinua tion) Hospital, Clinic, or Other Facility Administered Medication Ordered Dose Route Frequency Start Date End Date Status Triamcinolone Acetonide (Kenalog) 40 MG/ML inj 80 mgIndications:Chronic pain of left knee 80 mg IX ONCE 10/03/2023 10/03/2023 Active lidocaine 2 % inj 20 mgIndications:Chronic pain of left knee 20 mg IX ONCE 10/03/2023 10/03/2023 Active documented as of this encounter (statuses as of 10/03/2023) Active Problems Problem Noted Date Diagnosed Date [...] as of this encounter (statuses as of 10/03/2023) Resolved Problems Problem Noted Date Diagnosed Date Resolved Date Parathyroid abnormality 03/08/202205/05 Hypertensive kidney disease with stage 3a chronic kidney disease 01/12/2022 02/28/2023 Chronic kidney disease, stage 3a 08/16/2021 02/28/2023 Overview: Per CKD protocol Syncope and collapse 01/15/2021 023 Overview: [id number] Has had extensive evaluation including brain MRI, [...] as of this encounter (statuses as of 10/03/2023) Immunizations Name Administration Dates Next Due COVID-19 mRNA, LNP-s, No Pre serve, 2-Dose Series ([employer]) 03/16/2021,02/19/2021 Pneumococcal Conjugate Vacc, 13 Valent (Prevnar) [...] Sign Reading Time Taken Comments Blood Pressure 118/62 10/03/2023 8:16 AM EST Pulse 64 10/03/2023 8:16 AM EST Temperature 35.6 C (96 F) 10/03/2023 8:16 AM EST Respiratory Rate 16 10/03/2023 8:16 AM EST Oxygen Saturation - - Inhaled Oxygen Concentration - - Weight 74.8 kg (165 lb) 10/03/2023 8:16 AM EST Height 149.9 cm (4' 11") 10/03/2023 8:16 AM EST Body Mass Index 33.33 10/03/2023 8:16 AM EST documented in this encounter Progress Notes * Yue De La Torre PA-C - 10/03/2023 8:27 AM EST Nursing Notes: Coco Mcdowell, RN 10/03/23 0825 Sign at exiting of workspace Check up pt states she has been out of Atorvastatin for about 6 weeks, she would like to stay off of it, remove from list of ok to stay off of it Pt having trouble with her left knee. She started to exercise and knee snaps and crunches a lot, hurts, could she get an injection? Pt here today for recheck. Pt with PMH of dyslipidemia, depression, OA, HTN, chronic low back pain,fibromyalgia, hypothyroid, asthma, PSVT. Pt is feeling well. She is exercising. She just had normal. Labs. Her left knee is really bothering her when she is trying to exercise. It has given her problems for years but getting worse. Pt has clicking, popping, cracking. She has mild swelling. No redness or bruising. Pt is taking tylenol with little relief. Pt has no other issues at this time. Review of patient's allergies indicates: Allergen Reactions Atorvastatin Other reaction(s): Leg cramps Codeine Rash Esomeprazole Magnesium Other reaction(s): GI Pain Hydrocodone Other reaction(s): Itch Lisinopril Cough Other reaction(s): Cough Morphine Other reaction(s): Rash Rofecoxib Other reaction(s): GI Sulfa Antibiotics Nausea--side effect Other reaction(s): Nausea Other reaction(s): Nausea Morphine And Related Rash Current Outpatient Medications Medication Sig Dispense Refill Cholecalciferol (VITAMIN D3) 2000 UNITS Capsule Take 1 Capsule by mouth in the morning. 1 Cap 0 Multiple Vitamins-Minerals (DAILY MULTIVITAMIN) CAPS 3 daily Melatonin 10 MG Oral Tablet Take 1 Tablet by mouth at bedtime. Probiotic Acidophilus BioBeads Oral Capsule Take 1 Cap by mouth daily. Vitamin C 1000 MG Oral Tablet Take [...] mouth once a day 270 Capsule 1 Myrbetriq 50 MG Oral Tablet Extended Release 24 Hour (Mirabegron ER) TAKE ONE TABLET BY MOUTH EVERYMORNING 90 Tablet 3 Mirtazapine 7.5 MG Oral Tablet (Remeron) Take 1 Tablet by mouth at bedtime. meclizine (ANTIVERT) 12.5 MG Tablet Take 1 Tab by mouth 3 times a day as needed for Dizziness. 30 Tab 1 Atorvastatin Calcium 20 MG Oral Tablet (Lipitor) TAKE ONE TABLET BY MOUTH EVERY DAY IN THE MORNING 100 Tablet 1 No current facility-administered medications for this visit. Past Medical History: Diagnosis Date Adenomatous polyp [...] 12/31/2014 Vertigo 05/12/2020 Vitamin D insufficiency 01/11/2015 Social History Socioeconomic History Marital status: Spouse name: Not on file Number of children: 3 Years of education: Not on file Highest education level: Not on file Occupational History Occupation: aide at assisted living Comment: retired Tobacco Use Smoking status: Never Smokeless tobacco: Never Vaping Use Vaping Use: Never used Substance and Sexual Activity Alcohol use: No [...] on file Housing Stability: Not on file O:Blood pressure 118/62, pulse 64, temperature 35.6 C (96 F), resp. rate 16, height 1.499 m (4'11"), weight 74.8 kg (165 lb). GENERAL: alert, healthy, and no distress NECK: supple, no adenopathy, no bruits, thyroid normal size, non-tender, without nodularity EYES: PERRLA, conjunctiva are pink and non-injected, sclera clear EARS: External ears normal, Canals clear, TM's Normal NOSE: no mucosal erythema, no mucosal edema, no purulent discharge OROPHARYNX: no exudate, no erythema, lips, buccal mucosa, and tongue normal, and mucous membranes are moist HEART: regular rate & rhythm, no murmur, and no gallops LUNGS: chest symmetric with normal AP diameter, no chest deformities noted, no chest wall tenderness, lungs clear to auscultation ABDOMEN: abdomen soft, non-tender, normal bowel sounds, and no masses or organomegaly EXTREMITIES: left knee - mild edema, no erythema, no ecchymosis A:HTN, goal below 140/90 (Primary) - LIPID PANEL WITH DIRECT LDL IF TG IS HIGH; Future; Expected date: 10/03/2023 - COMPREHENSIVE METABOLIC PANEL; Future; Expected date: 10/03/2023 - TSH WITH FREE T4 IF INDICATED; Future; Expected date: 10/03/2023 - CBC WITH WBC DIFFERENTIAL AND ANEMIA REFLEX WORKUP; Future; Expected date: 10/03/2023 - ALBUMIN / CREATININE RATIO, URINE; Future; Expected date: 10/03/2023 Multiple thyroid nodules - LIPID PANEL WITH DIRECT LDL IF TG IS HIGH; Future; Expected date: 10/03/2023 - COMPREHENSIVE METABOLIC PANEL; Future; Expected date: 10/03/2023 - TSH WITH FREE T4 IF INDICATED; Future; Expected date: 10/03/2023 - CBC WITH WBC DIFFERENTIAL AND ANEMIA REFLEX WORKUP; Future; Expected date: 10/03/2023 - ALBUMIN / CREATININE RATIO, URINE; Future; Expected date: 10/03/2023 Vitamin D deficiency - LIPID PANEL WITH DIRECT LDL IF TG IS HIGH; Future; Expected date: 10/03/2023 - COMPREHENSIVE METABOLIC PANEL; Future; Expected date: 10/03/2023 - TSH WITH FREE T4 IF INDICATED; Future; Expected date: 10/03/2023 - CBC WITH WBC DIFFERENTIAL AND ANEMIA REFLEX WORKUP; Future; Expected date: 10/03/2023 - ALBUMIN / CREATININE RATIO, URINE; Future; Expected date: 10/03/2023 Hypothyroidism (acquired) - LIPID PANEL WITH DIRECT LDL IF TG IS HIGH; Future; Expected date: 10/03/2023 - COMPREHENSIVE METABOLIC PANEL; Future; Expected date: 10/03/2023 - TSH WITH FREE T4 IF INDICATED; Future; Expected date: 10/03/2023 - CBC WITH WBC DIFFERENTIAL AND ANEMIA REFLEX WORKUP; Future; Expected date: 10/03/2023 - ALBUMIN / CREATININE RATIO, URINE; Future; Expected date: 10/03/2023 Fibromyalgia - LIPID PANEL WITH DIRECT LDL IF TG IS HIGH; Future; Expected date: 10/03/2023 - COMPREHENSIVE METABOLIC PANEL; Future; Expected date: 10/03/2023 - TSH WITH FREE T4 IF INDICATED; Future; Expected date: 10/03/2023 - CBC WITH WBC DIFFERENTIAL AND ANEMIA REFLEX WORKUP; Future; Expected date: 10/03/2023 - ALBUMIN / CREATININE RATIO, URINE; Future; Expected date: 10/03/2023 Chronic pain of left knee - XR KNEE 4 OR MORE VIEWS - Triamcinolone Acetonide (Kenalog) 40 MG/ML inj 80 mg - lidocaine 2 % inj 20 mg - ARTHROCENT ASP &/OR INJ MAJOR JX/BURSA W/O US Paroxysmal SVT (supraventricular tachycardia) Myelomalacia of cervical cord (HCC) Generalized osteoarthritis Lumbar degenerative disc disease Hyperlipidemia with target LDL less than 100 RIDGE (generalized anxiety disorder) Major depressive disorder, recurrent, mild (HCC) Intermittent asthma with reliever use up to twice per week without complication Will check some labs. Left knee prepped with betadine and alcohol swab x 2. Left knee injected with80 mg kenalog and 1.0 mL lidocaine. Pt tolerated procedure well. Any questions/problems, please call. If anything changes, worsens, develops new sx, please call [facility]. Follow Up: Return PRN. Yue De La Torre PA-C documented in this encounter Nursing Notes * Coco Mcdowell RN - 10/03/2023 8:16 AM EST Check up pt states she has been out of Atorvastatin for about 6 weeks, she would like to stay off of it, remove from list of ok to stay off of it Pt having trouble with her left knee. She started to exercise and knee snaps and crunches a lot, hurts, could she get an injection? documented in this encounter Plan of Treatment Upcoming Encounters Date Type Department Care Team (Late st Contact Info) Description 12/20/2023 10:30 AM EDT Office Visit Family Medicine [address] [place] [phone] Roxana Coleman[address] [place] [address] 09/09/2024 12:30 PM EST Nurse Only Ancillary [address] [place] [address] [place], Nurse [address] [place] [address] Pending Results Name Type Priority Associated Diagnoses Date/Time LIPID PANEL WITH DIRECT LDL IF TG IS HIGH Lab Routine HTN, goal below 140/90 Multiple thyroid nodules Vitamin D deficiency Hypothyroidism (acquired) Fibromyalgia 10/03/2023 8:51 AM EST COMPREHENSIVE METABOLIC PANEL Lab Routine HTN, goal below 140/90 Multiple thyroid nodules Vitamin D deficiency Hypothyroidism (acquired) Fibromyalgia 10/03/2023 8:51 AM EST TSH WITH FREE T4 IF INDICATED Lab Routine HTN, goal below 140/90 Multiple thyroid nodules Vitamin D deficiency Hypothyroidism (acquired) Fibromyalgia 10/03/2023 8:51 AM EST CBC WITH WBC DIFFERENTIAL AND ANEMIA REFLEX WORKUP Lab Routine HTN, goal below 140/90 Multiple thyroid nodules Vitamin D deficiency Hypothyroidism (acquired) Fibromyalgia 10/03/2023 8:51 AM EST ALBUMIN / CREATININE RATIO, URINE Lab Routine HTN, goal below 140/90 Multiple thyroid nodules Vitamin D deficiency Hypothyroidism (acquired) Fibromyalgia 10/03/2023 8:51 AM EST XR KNEE 4 OR MORE VIEWS Medical Imaging Routine Chronic pain of left knee 10/03/2023 9:15 AM EST Scheduled Orders Name Type Priority Associated Diagnoses Orde r Schedule LIPID PANEL WITH DIRECT LDL IF TG IS HIGH Lab Routine HTN, goal below 140/90 Multiple thyroid nodules Vitamin D deficiency Hypothyroidism (acquired) Fibromyalgia Expected: 10/03/2023, Expires: 10/03/2024 COMPREHENSIVE METABOLIC PANEL Lab Routine HTN, goal below 140/90 Multiple thyroid nodules Vitamin D deficiency Hypothyroidism (acquired) Fibromyalgia Expected: 10/03/2023 (Approximate), Expires: 10/02/2024 TSH WITH FREE T4 IF INDICATED Lab Routine HTN, goal below 140/90 Multiple thyroid nodules Vitamin D deficiency Hypothyroidism (acquired) Fibromyalgia Expected: 10/03/2023 (Approximate), Expires: 10/02/2024 CBC WITH WBC DIFFERENTIAL AND ANEMIA REFLEX WORKUP Lab Routine HTN, goal below 140/90 Multiple thyroid nodules Vitamin D deficiency Hypothyroidism (acquired) Fibromyalgia Expected: 10/03/2023 (Approximate), Expires: 10/03/2024 ALBUMIN / CREATININE RATIO, URINE Lab Routine HTN, goal below 140/90 Multiple thyroid nodules Vitamin D deficiency Hypothyroidism (acquired) Fibromyalgia Expected: 10/03/2023 (Approximate), Expires: 10/02/2024 ARTHROCENT ASP &/OR INJ MAJOR JX/BURSA W/O US Procedures Routine Chronic pain of left knee Ordered: 10/03/2023 Scheduled Procedures Name Priority Associated Diagnoses Date/Ti me COLONOSCOPY FLEXIBLE PROXIMA L DIAGNOSTIC Recall History of colon polyps Family history of colon cancer Health Maintenance Due Date Last Done Comments COVID-19 Vaccine (2022- season) 2023 03/16/2021, 02/19/2021 TSH 11/30/2023 11/29/2022, 04/05, 01/25/2022, Additional history exists GFR 02/29/2024 02/28/2023, 11/03, 07/29/2022, Additional history exists Depression Screening 09/07/2024 09/07/2023 COLONOSCOPY-EVERY 3 YRS AGES 18-100 11/02/2024 11/02/2021, 11/02/2021, 11/16/2015, Additional history exists Albumin/Creatinine Ratio 02/28/2026 02/28/2023 DXA Scan 03/11/2028 03/11/2021, 06/10/2015 DTaP,Tdap,and Td [...] as of this encounter Visit Diagnoses Diagnosis HTN, goal below 140/90- Primary Unspecified essential hypertension Multiple thyroid nodules Nontoxic multinodular goiter Vitamin D deficiency Unspecified vitamin D deficiency Hypothyroidism (acquired) Unspecified hypothyroidism Fibromyalgia Mylagia and myositis, unspecified Chronic pain of left knee Pain in joint, lower leg Paroxysmal SVT (supraventricular tachycardia) Paroxysmal supraventricular tachycardia Myelomalacia of cervical cord (HCC) Other myelopathy Generalized osteoarthritis Generalized osteoarthrosis, unspecified site Lumbar degenerative disc disease Degeneration of lumbar or lumbosacral intervertebral disc Hyperlipidemia with target LDL less than 100 Other and unspecified hyperlipidemia RIDGE (generalized anxiety disorder) Generalized anxiety disorder Major depressive disorder, recurrent, mild (HCC) Major depressive disorder, recurrent episode, mild Intermittent asthma with reliever use up to twice per week without complication documented in this encounter Advance Directives Documents on File Type Date Recorded Patient Product Marketing Intern Expl anation Advance Directives and Living Will [...] patient or by statute hierarchy) Care Teams Bridge Contractor Relationship Specialty Start Date End Date Roxana Coleman DO [address] [place] [address] [place] [address] PCP - General Internal Medicine 08/10/22 documented as of this encounter
--- OUTSIDE RECORDS SUMMARY | 2024-03-15 14:41 | External Medical Summary | Summary of Care ---
Author Name Unknown Organization [facility] Address [address] [place] [address] Phone [phone] Care Team Providers Care Nurse General Duty Name Role Phone ColemanRoxana cleary Primary Care Provider [phone] Reason for Visit * Reason Comments Re-Check Encounter Details Date Type Department Care Team (Late st Contact Info) Description 10/03/2023 8:40 AM EST Office Visit Family Medicine [address] [phone] Yue De La Torre PA-C [address] [place] [address] [place] [address] HTN, goal below 140/90*; Multiple thyroid nodules; [...] knee 80 mg IX ONCE 10/03/2023 10/03/2023 Ended lidocaine 2 % inj 20 mgIndications:Chronic pain of left knee 20 mg IX ONCE 10/03/2023 10/03/2023 Ended documented as of this encounter (statuses as [...] protocol Syncope and collapse 01/15/2021 023 Overview: [id number] Has had extensive evaluation including brain MRI, [...] mRNA, LNP-s, No Pre serve, 2-Dose Series ([employer]) 03/16/2021,02/19/2021 Pneumococcal Conjugate Vacc, 13 Valent (Prevnar) [...] 10:30 AM EDT Office Visit Family Medicine [address] [place] [phone] Roxana Coleman[address] [place] [address] 09/09/2024 12:30 PM EST Nurse Only Ancillary [address] [place] [address] [place], Nurse [address] [place] [address] Pending Results Name Type Priority Associated Diagnoses [...] week without complication documented in this encounter Administered Medications Inactive Administered Medications - up to 3 most recent administrations Medication Order MAR Action Action Date Dose Rate Site lidocaine 2 % inj 20 mg 20 mg (1 mL), Intra-Articular, ONCE, On Mon10/03/23 at 0945, For 1 dose Given 10/03/2023 9:51 AM EST 20 mg Knee Left Triamcinolone Acetonide (Kenalog) 40 MG/ML inj 80 mg 80 mg, Intra-Articular, ONCE, On Mon10/03/23 at 0945, For 1 dose Given 10/03/2023 9:51 AM EST 80 mg documented in this encounter Advance Directives Documents on File Type Date Recorded Patient Reordering Clerk Expl anation Advance Directives and Living Will [...] patient or by statute hierarchy) Care Teams Nurse General Duty Relationship Specialty Start Date End Date Roxana Coleman DO [address] [place] [address] [place] [phone] PCP - General Internal Medicine 08/10/22 documented as of this encounter
--- OUTSIDE RECORDS SUMMARY | 2024-03-15 14:41 | External Medical Summary ---
Author Name Unknown Address Unknown Organization [facility] [address] [place] [id number] Laboratory Report Ordering Provider Test Date Status SIMON DE LOS SANTOS 10/26/2023 09:45:37 Final Observation Date Value Abnormality Reference (Units ) Status Color of Urine by Auto 10/26/2023 09:45:37 Yellow Light Yellow, Yellow, Dark Yellow Final Clarity, Urine 10/26/2023 09:45:37 Clear Clear Final Glucose [Mass/volume] in Urine by Automated test strip 10/26/2023 09:45:37 Negative Negative (mg/dL) Final Bilirubin.total [Presence] in Urine by Automated test strip 10/26/2023 09:45:37 Negative Negative Final Ketones [Mass/volume] in Urine by Automated test strip 10/26/2023 09:45:37 Negative Negative (mg/dL) Final Specific gravity, Urine 10/26/2023 09:45:37 1.025 1.003-1.030 Final Hemoglobin [Presence] in Urine by Automated test strip 10/26/2023 09:45:37 Trace Abnormal Negative Final pH, Urine 10/26/2023 09:45:37 6.0 5.0-7.5 (Units) Final Protein [Mass/volume] in Urine by Automated test strip 10/26/2023 09:45:37 Negative Negative (mg/dL) Final Urobilinogen [Mass/volume] in Urine by Automated test strip 10/26/2023 09:45:37 0.2 0.2, 1.0 (mg/dL) Final Nitrite [Presence] in Urine by Automated test strip 10/26/2023 09:45:37 Negative Negative Final Leukocyte esterase [Presence] in Urine by Automated test strip 10/26/2023 09:45:37 Negative Negative Final RBC, Urine 10/26/2023 09:45:37 0-2 0-2 (/HPF) Final WBC, Urine 10/26/2023 09:45:37 0-2 0-2 (/HPF) Final Bacteria [#/area] in Urine sediment by Microscopy high power field 10/26/2023 09:45:37 0-25 0-25 (/HPF) Final CULTURE, URINE - [facility] 10/26/2023 09:45:37 Final Culture not indicated by uri nalysis results\[id number]\ Performing Location [facility] [address] [facility] [id number]
--- OUTSIDE RECORDS SUMMARY | 2024-03-15 14:41 | External Medical Summary | Summary of Care ---
Author Name Unknown Organization [facility] Address [address] [place] [address] Phone [phone] Care Team Providers Care Microeconomics Professor Name Role Phone Roxana Coleman DO Primary Care Provider Reason for Visit * Reason Onset Date Comments Encounter Created in Error 10/16/2023 Encounter Details Date Type Department Care Team (Late st Contact Info) Description 10/16/2023 Telephone Family Medicine [address] [phone] Roxana Coleman DO [address] [place] [address] [place] [address] Encounter Created in Error Allergies Active Allergy Reactions Criticality Noted Date [...] MORNING 100 Tablet 1 10/09/2023 10/08/2024 Active documented as of this encounter (statuses [...] protocol Syncope and collapse 01/15/2021 023 Overview: Has had extensive evaluation including brain MRI, [...] Office Visit Urogynecology Kellie Broussard [address] [place] [address] Dewey Fuentes MD [address] [place] [address] Nurse Rose Broussard [address] [place] [address] 12/20/2023 10:30 AM EDT Office Visit Family Medicine [address] [phone] Coleman Roxana Lamberte[address] [place] [address] 09/09/2024 12:30 PM EST Nurse Only Ancillary [place] [place] [address] [place], Nurse Annual [address] [place] [address] Scheduled Procedures Name Priority Associated Diagnoses Date/Ti [...] Documents on File Type Date Recorded Patient Mining Technician Expl anation Advance Directives and Living Will [...] patient or by statute hierarchy) Care Teams Microeconomics Professor Relationship Specialty Start Date End Date Roxana Coleman DO [address] [place] [address] [place] [address] PCP - General Internal Medicine 08/10/22 documented as of this encounter
--- OUTSIDE RECORDS SUMMARY | 2024-03-15 14:41 | External Medical Summary | Summary of Care ---
Author Name Unknown Organization [facility] Address [address] [place] [address] Phone [phone] Care Team Providers Care Mail Order Clerk Name Role Phone Roxana Coleman Primary Care Provider Reason for Visit * Reason Comments Outpatient Testing Encounter Details Date Type Department Care Team (Late st Contact Info) Description 10/03/2023 9:20 AM EST Laboratory Laboratory [address] [place] [phone] [place] [address] [employer] Other*[id number]; HTN, goal below 140/90; Multiple thyroid nodules; Vitamin D deficiency; Hypothyroidism (acquired); Fibromyalgia Allergies Active Allergy Reactions Criticality Noted Date [...] IN THE MORNING 100 Tablet 1 02/07/2023 02/07/2024 Active D-Mannose 500 MG Oral Capsule Once [...] Take by mouth daily. 0 10/03/2023 Active documented as of this encounter [...] protocol Syncope and collapse 01/15/2021 023 Overview: [id number] Has had extensive evaluation including brain MRI, [...] 10:30 AM EDT Office Visit Family Medicine [address] [place] [phone] Roxana Coleman [address] [place] [address] 09/09/2024 12:30 PM EST Nurse Only Ancillary [address] [place] [address] [place], Nurse [address] [place] [address] Pending Results Name Type Priority Associated Diagnoses Date /Time MYCODE SUBSEQUENT ADULT Lab Routine [employer] Other*[id number] 10/03/2023 8:51 AM EST LIPID PANEL WITH DIRECT LDL IF TG [...] Hypothyroidism (acquired) Fibromyalgia 10/03/2023 8:51 AM EST MYCODE SST1 Lab Routine [employer] Other*[id number] 10/03/2023 8:51 AM EST MYCODE SST2 Lab Routine [employer] Other*[id number] 10/03/2023 8:51 AM EST ANEMIA CBC Lab Routine HTN, goal below 140/90 Multiple thyroid nodules Vitamin D deficiency Hypothyroidism (acquired) Fibromyalgia 10/03/2023 8:51 AM EST DIFFERENTIAL, AUTOMATED Lab Routine HTN, goal below 140/90 Multiple thyroid nodules Vitamin D deficiency Hypothyroidism (acquired) Fibromyalgia 10/03/2023 8:51 AM EST ANEMIA REFLEX CHEMISTRY HOLD Lab Routine HTN, goal below 140/90 Multiple thyroid nodules Vitamin D deficiency Hypothyroidism (acquired) Fibromyalgia 10/03/2023 8:51 AM EST Scheduled Procedures Name Priority Associated Diagnoses Date/Ti me COLONOSCOPY FLEXIBLE PROXIMA L DIAGNOSTIC Recall History of colon polyps Family history of colon cancer Health Maintenance Due Date Last Done Comments COVID-19 Vaccine ( season) 2023 03/16/2021, 02/19/2021 TSH 11/30/2023 11/29/2022, 0802/2022, 01/25/2022, Additional history exists GFR 02/29/2024 02/28/2023, [...] as of this encounter Visit Diagnoses Diagnosis [employer] Other*[id number] HTN, goal below 140/90 Unspecified essential hypertension Multiple thyroid nodules Nontoxic multinodular goiter Vitamin D deficiency Unspecified vitamin D deficiency Hypothyroidism (acquired) Unspecified hypothyroidism Fibromyalgia Mylagia and myositis, unspecified documented in this encounter Advance Directives Documents on File Type Date Recorded Patient Policy Value Calculator Expl anation Advance Directives and Living Will [...] patient or by statute hierarchy) Care Teams Mail Order Clerk Relationship Specialty Start Date End Date Roxana Coleman DO [address] [place] [address] [place] [address] PCP - General Internal Medicine 08/10/22 documented as of this encounter
--- OUTSIDE RECORDS SUMMARY | 2024-03-15 14:41 | External Medical Summary ---
Author Name Unknown Address Unknown Organization [id number]:[facility] [place] - [address] [place] [address] [facility] [address] Laboratory Report Ordering Provider Test Date Status MYA GOLDEN 10/03/2023 08:51:50 Final Observation Date Value Abnormality Reference (Units ) Status WBC, Total 10/03/2023 08:51:50 5.49 4.00-10.8 0 (K/uL) Final RBC 10/03/2023 08:51:50 4.75 3.85-5.15 (M/uL) Final Hemoglobin 10/03/2023 08:51:50 14.5 12.0-15.3 (g/dL) Final Anemia reflex testing trigge rs on a HGB < 12.0 for Females and HGB < 13.0 for Males in accordance with the WHO Anemia Guidelines
Anemia reflex testing triggers on a HGB < 12.0 for Females and HGB < 13.0 for Males in accordance with the WHO Anemia Guidelines HCT 10/03/2023 08:51:50 46.2 Above hi gh normal 36.0-45.2 (%) Final MCV 10/03/2023 08:51:50 97.3 81.5-97.5 (fL) Final MCH 10/03/2023 08:51:50 30.5 27.0-34.0 (pg) Final MCHC 10/03/2023 08:51:50 31.4 32.0-36.0 (g/dL) Final RDW 10/03/2023 08:51:50 12.6 11.5-15.5 (%) Final Platelets 10/03/2023 08:51:50 298 140-400 (K /uL) Final MPV 10/03/2023 08:51:50 9.9 6.6-11.1 ( fL) Final Nucleated erythrocytes/100 leukocytes [Ratio] in Blood by Automated count 10/03/2023 08:51:50 0 <=0 (/100 WBCs) Final Performing Location [facility] [place] - [address] [facility] [address]
--- OUTSIDE RECORDS SUMMARY | 2024-03-15 14:42 | External Medical Summary ---
Author Name Unknown Address Unknown Organization K01[place] [place] [address] [facility] [address] Laboratory Report Ordering Provider Test Date Status MYA GOLDEN 10/03/2023 08:51:50 Final Observation Date Value Abnormality Reference (Units ) Status Triglyceride 10/03/2023 08:51:50 71 <=174 ( mg/dL) Final Triglyceride Reference Range s (mg/dL):
<150 Acceptable
150-174 Borderline high
175-499 High
>=500 Very high Cholesterol 10/03/2023 08:51:50 251 Above high normal <200 (mg/dL) Final Total Cholesterol Reference Ranges (mg/dL):
<200 Desirable
200-239 Borderline high
>=240 High HDL 10/03/2023 08:51:50 82 >49 (mg/dL ) Final HDL Cholesterol Reference Ra nges (mg/dL):
>=60 High (Desirable)
<50 Low (Undesirable) For Females
<40 Low (Undesirable) For Males NON-HDL CHOLESTEROL 10/03/2023 08:51:50 169 Above high normal <=159 (mg/dL) Final Non-HDL Cholesterol Referenc e Range (mg/dL):
<100 Target level for high risk ASCVD patient
<130 Optimal for general population
130-159 Near optimal for general population
160-189 Borderline High
190-219 High
>=220 Very High LDL, (calculated) 10/03/2023 08:51:50 155 Above high n ormal <=129 (mg/dL) Final LDL Cholesterol Reference Ra nges (mg/dL):
<70 Target level for high risk ASCVD patient
<100 Optimal for general population
100-129 Near optimal for general population
130-159 Borderline high
160-189 High
>=190 Very high Performing Location [facility] [place] [place] [address] [facility] [address]
--- OUTSIDE RECORDS SUMMARY | 2024-03-15 14:42 | External Medical Summary ---
Author Name Unknown Address Unknown Organization K01[place] [place] [address] [facility] [address] Laboratory Report Ordering Provider Test Date Status ALVARADO GOLDENRIA 10/03/2023 08:51:50 Final Observation Date Value Abnormality Reference (Units ) Status SYNC LEUKOCYTES IN BLOOD BY AUTOMATED COUNT 10/03/2023 08:51:50 5.49 4.00-10.80 (K/uL) Final Segs 10/03/2023 08:51:50 47.5 40.0-75.0 (%) Final Lymphs % 10/03/2023 08:51:50 36.6 18.0-42.0 (%) Final Monos 10/03/2023 08:51:50 12.4 Above high normal 1.0-11.0 (%) Final Eosinophils 10/03/2023 08:51:50 2.6 0.0-6.0 (%) Final Basos 10/03/2023 08:51:50 0.5 0.0-2.0 (%) Final Immature Granulocyte, Percent 10/03/2023 08:51:50 0.4 0.0-2.0 (%) Final Absolute Segs 10/03/2023 08:51:50 2.61 1.80-7.70 (K/uL) Final Lymphs, absolute 10/03/2023 08:51:50 2.01 1.00-4.80 (K/ul) Final Monos, Abs 10/03/2023 08:51:50 0.68 0.00-1.10 (K/uL) Final Eos, Abs 10/03/2023 08:51:50 0.14 0.00-0.70 (K/uL) Final Basos, Abs 10/03/2023 08:51:50 0.03 0.00-0.20 (K/uL) Final Immature Granulocytes, Number 10/03/2023 08:51:50 0.02 0.00-0.20 (K/uL) Final Performing Location [facility] [place] [address] [facility] [address]
--- OUTSIDE RECORDS SUMMARY | 2024-03-15 14:42 | External Medical Summary ---
Author Name Unknown Address Unknown Organization K01:[facility] [place] [address] [facility] [address] Laboratory Report Ordering Provider Test Date Status MYA GOLDEN 10/03/2023 08:51:50 Final Observation Date Value Abnormality Reference (Units ) Status TSH 10/03/2023 08:51:50 3.70 0.27-4.20 (uIU/mL) Final Performing Location [facility] [place] - [address] [facility] [address]
--- OUTSIDE RECORDS SUMMARY | 2024-03-15 14:42 | External Medical Summary ---
Author Name Unknown Address Unknown Organization K01:[facility] [place] - [address] [place] [address] Laboratory Report Ordering Provider Test Date Status PAIGE DAVENPORT 10/03/2023 08:51:50 Final Observation Date Value Abnormality Reference (Units ) Status MYCODE SPECIMEN-SST 10/03/2023 08:51:50 Freezing of extracted DNA, whole blood and/or serum. Final Performing Location LAB[facility] [place] - [address] [place] [address]
--- OUTSIDE RECORDS SUMMARY | 2024-03-15 14:42 | External Medical Summary ---
Author Name Unknown Address Unknown Organization K01:[facility] [place] - [address] [place] [id number] Laboratory Report Ordering Provider Test Date Status PAIGE DAVENPORT 10/03/2023 08:51:50 Final Observation Date Value Abnormality Reference (Units ) Status MYCODE SPECIMEN-SST 10/03/2023 08:51:50 Freezing of extracted DNA, whole blood and/or serum. Final Performing Location [facility] [place] - [address] [place] [id number]
[2024-03-15] MEDS: traZODone HCL 100 MG TAB PO PRN (21:22)
[2024-03-15] MEDS: DOXYCYCLINE HYCLATE 100 MG CAP PO SCH (21:22)
[2024-03-15] MEDS: REMDESIVIR 100 MG in SODIUM CHLORIDE 0.9% 230 ML IV SCH (21:32)
[2024-03-16 06:11] LABS: Hematocrit (blood only) 41.2 % (37.0-47.0); Hemoglobin 13.3 g/dl (12.0-16.0); Mean Corpuscular Hemoglobin 29.5 pg (25.0-34.0); Mean Corpuscular Hgb Conc 32.3 g/dL (32.0-36.0); Mean Corpuscular Volume 91.4 fL (80.0-100.0); Mean Platelet Volume 9.3 fL (9.4-12.4); Platelet Count 204 K/uL (130-400); RDW Coefficient of Variation 12.4 % (11.5-14.5); RDW Standard Deviation 41.1 fL (36.4-46.3); Red Blood Count 4.51 M/uL (4.20-5.40); White Blood Count 15.19 K/ul (4.8-10.8)
[2024-03-16 06:18] LABS: Albumin Level 3.3 gm/dl (3.4-5.0); Bilirubin,Total 0.3 mg/dl (0.2-1.0); Calcium 8.9 mg/dl (8.6-10.3); Creatinine Clr Calc Pharmacy 58.7 ml/min; Est GFR (African American) 90.4 ml/min; Magnesium 1.8 mg/dl (1.7-2.4); Potassium 4.1 mmol/L (3.5-5.1); Total Protein 6.7 gm/dl (6.0-8.3)
[2024-03-16] MEDS: hydrOXYzine HCl 25 MG TAB PO PRN (09:10)
--- NOTE | 2024-03-16 11:04 | Discharge Summary ---
Date of Service March 16, 2024 Admission HPI Per Admitting Provider History obtained from patient and records. Medical history significant for hypertension, hyperlipidemia, IDRIS, hypothyroidism, prediabetes, fibromyalgia, mood disorder. Last confinement April 2022 for lumbar disc herniation status post surgery. Marked postop hypotension. Few days history of sinus congestion followed by junky cough symptoms associated with headache and nausea. Pleuritic chest pain. Not sure about sick contacts. Lowest O2 sats of 80s documented at the ER. Decadron and ceftriaxone administered at the ER. Medical History as above Surgical History : Neck surgery, carpal tunnel surgeries, dental surgery, BTL, eyelid surgery, appendectomy, cholecystectomy, bladder defect repair, KO Family History : Breast cancer, colon cancer, DM, heart disease, stroke Personal/Social history : Non-smoker, no EtOH intake, retired nurse aide Admission Exam Per Admitting Provider GENERAL: Comfortable, pleasant, obese, no respiratory distress SKIN: Normal color, warm HEENT: [place] palpebral conjunctivae, no ptosis, dry buccal mucosa, nasal cannula in place NECK : Supple, no tenderness CHEST : Decreased breath sounds, no tenderness HEART : RRR, no obvious murmurs ABDOMEN: Some distention, nontender EXTREMITIES : No LE swelling/tenderness, no other conspicuous deformities noted NEUROLOGIC : Coherent, no facial asymmetry, no other gross focality Principal Diagnosis Hypoxia Infection due to COVID-19 virus Sepsis POA likely secondary to COVID-19 virus infection Left thyroid nodule x 2.0 cm Discharge Exam GENERAL: Comfortable, pleasant, obese, no respiratory distress, on RA. SKIN: Normal color, warm HEENT: [place] palpebral conjunctivae, no ptosis, moist buccal mucosa, nasal cannula in place NECK : Supple, no tenderness CHEST : Decreased breath sounds, no tenderness, bb dry crackles. HEART : RRR, no obvious murmurs ABDOMEN: Some distention, nontender EXTREMITIES : No LE swelling/tenderness, no other conspicuous deformities noted NEUROLOGIC : Coherent, no facial asymmetry, no other gross focality Discharge Data Allergies Allergy/AdvReac Type Severity Reaction Status Date / Time lisinopril Allergy Intermediate Cough Verified 03/08/22 21:43 morphine Allergy Intermediate Rash Verified 03/08/22 21:43 Sulfa (Sulfonamide Allergy Intermediate Nausea Verified 03/08/22 21:43 Antibiotics) Consultations 03/14/24 21:36 ED Decision to Admit Stat Ordered Studies 03/14/24 22:34 CT angio chest PE protocol Stat Hospital Course (1) Hypoxia: (2) COVID: Plan 73-year-old lady with PMH of HTN, HLD, IDRIS, hypothyroidism, prediabetes, fibromyalgia, mood disorder Presented to the ED with few days history of worsening cough associated with headache, nausea, vomiting, pleuritic chest pain, progressive weakness. She was noted to have COVID-19 infection, she was managed for the following: Hypoxia: Not resp failure as pt not in resp distress per ED and HnP notes. Infection due to COVID-19 virus Sepsis POA: Likely secondary to above. Respiratory rate and WBC elevated at presentation. Patient presenting with cough productive of scant sputum associated with generalized illness for few days CHEF UNDER. Patient noted to have COVID-19 infection at presentation. Patient started on dexamethasone 03/14 and remdesivir 03/14, LFT wnl. Pt improved on O2 requirement, currently stable on RA. Pt reports to feeling Significantly better, no nausea/headache/vomiting. Reports improvement in her cough. Reports she is moving closer to her baseline strength. Patient advised to continue incentive spirometer even after discharge, RN communicated to provide incentive spirometer to the patient. Will continue doxycycline for possible complicated bronchitis. Patient is hemodynamically stable and is feeling significantly better and would like to go home. Admitting CTA chest with left thyroid nodule about 2.0 cm. Outpatient thyroid ultrasound upon discharge. Patient has been made aware. Other chronic medical conditions: Continue with/resume home meds as and when able. hypertension, stable hyperlipidemia, on statin Rx hypothyroidism, euthyroid as of today's TSH prediabetes, hemoglobin A1c of 5.5 from 2021 Thyroid nodule DVT prophylaxis. Lovenox subcu Full code Patient is being discharged home with following instruction at the point of discharge: Follow-up with your primary care physician within a week time and likely you will need labs CBC/CMP/magnesium/phosphorus. You are diagnosed with infection due to COVID-19 virus, you were initiated on remdesivir and dexamethasone, now you are back on room air and feeling better. Continue with incentive spirometer for next 5 to 10 days upon discharge as discussed at the bedside. You will be discharged on doxycycline course for possible complicated bronchi tis. You will be discharged on few days of steroid given COVID-19 virus infection. You were noted to have left thyroid nodule about [address] chest imaging. Recommend you get outpatient thyroid ultrasound upon discharge, coordinate with your PCP office to set up the test. Take your medications as prescribed. Please make sure that you are able to get your medications today by calling your pharmacy before you leave the hospital so that your treatment continuity is not broken. Text document was generated using [employer] voice recognition software. It may contain grammatical or spelling errors. Kindly contact undersigned for clarification of any documentation item in question. Home Health Attestation I certify that this patient is under my care and that I, or a physicians hardware sales assistant working with me, had a face to-face encounter that meets the home health [id number] encounter requirements with this patient. The encounter with the patient was in whole, or in part, for the following medical condition, which is the primary reason for home health care (list medical condition): I certify that, based on my findings, the following services are medically necessary home health services: My clinical findings support the need for the above services because: Further, I certify that my clinical findings support that this patient is homebound (i.e. absences from home require considerable and taxing effort and are for medical reasons or roman catholic services or infrequently or of short duration when for other reasons) because: Certification for Home Health Services: Based on the above findings, I certify that this patient is confined to the home and needs intermittent alf care, physical therapy and/or speech therapy or continues to need occupational therapy. The patient is under my care, and I have initiated the establishment of the plan of care. This patient will be followed by a physician who will periodically review the plan of care. Total Time Total Time Spent Total Time Spent (In Minutes): 45 Discharge Plan Discharge Items Patient Disposition: Home - Self-Care Reason For Visit: RESP FAILURE, COVID Discharge Diagnosis: Hypoxia Infection due to COVID-19 virus Sepsis POA likely secondary to COVID-19 virus infection Left thyroid nodule x 2.0 cm Activity: Resume your previous activity Non-emergency contact: Primary Care Provider Call non-emergency contact if: you have any medication questions, your symptoms worsen and your temperature is above 101.5 Follow-up/Referrals: Roxana Coleman DO [Primary Care Provider] - Diet: Heart Healthy Addtl Attending Provider Instructions: Follow-up with your primary care physician within a week time and likely you will need labs CBC/CMP/magnesium/phosphorus. You are diagnosed with infection due to COVID-19 virus, you were initiated on remdesivir and dexamethasone, now you are back on room air and feeling better. Continue with incentive spirometer for next 5 to 10 days upon discharge as discussed at the bedside. You will be discharged on doxycycline course for possible complicated bronchitis. You will be discharged on few days of steroid given COVID-19 virus infection. You were noted to have left thyroid nodule about [address] chest imaging. Recommend you get outpatient thyroid ultrasound upon discharge, coordinate with your PCP office to set up the test. Take your medications as prescribed. Please make sure that you are able to get your medications today by calling your pharmacy before you leave the hospital so that your treatment continuity is not broken. Pending Studies at Discharge: No Stand-Alone Forms: My [facility], Smoking Cessation Medications and DC Order Prescriptions: New doxycycline hyclate 100 mg Capsule 100 mg PO BID 6 Days Qty: 12 0RF dexamethasone 6 mg tablet 6 mg PO DAILY 3 Days Qty: 3 0RF Continued trazodone 100 mg Tablet 100 mg PO HS PRN (Reason: Insomnia) levothyroxine 88 mcg tablet 88 mcg PO QAM ascorbic acid (vitamin C) [Vitamin C] 1,000 mg tablet 1,000 mg PO DAILY atorvastatin 20 mg tablet 20 mg PO DAILY aspirin [Dyana Low Dose Aspirin] 81 mg tablet,delayed release (DR/EC) 81 mg PO DAILY baclofen 20 mg tablet 20 mg PO TID PRN (Reason: muscle spasms) cyanocobalamin (vitamin B-12) [Vitamin B-12] 500 mcg tablet 500 mcg PO DAILY hydroxyzine HCl 25 mg tablet 25 mg PO BID PRN (Reason: Anxiety) fluoxetine 20 mg capsule 60 mg PO DAILY solifenacin 5 mg tablet 5 mg PO DAILY melatonin 10 mg tablet 10 mg PO DAILY PRN (Reason: Insomnia) Discharge Orders: Discharge Order (Routine); Ordered 03/16/24 Ordered By: Isadora Gil Admission Data Admit Date/Time: 03/14/24 23:39 Attending Provider: Isadora Gil Admit Provider: Michele Maher Primary Care Provider: Roxana Coleman Other Providers: Michele Maher
--- NOTE | 2024-03-18 12:25 | Electrocardiogram Report ---
Test Reason : Blood Pressure : / mmHG Vent. Rate : 081 BPM Atrial Rate : 081 BPM P-R Int : 146 ms QRS Dur : 072 ms QT Int : 428 ms P-R-T Axes : 116 186 176 degrees QTc Int : 497 ms Suspect arm lead reversal, interpretation assumes no reversal Normal sinus rhythm Right superior axis deviation Low voltage QRS Septal infarct , age undetermined Abnormal ECG When compared with ECG of 08-MAR-2022 18:45, Premature supraventricular complexes are no longer Present Septal infarct is now Present Nonspecific T wave abnormality now evident in Anterior leads Confirmed by Ryder Linares ([id number]) on 03/18/2024 12:25:43 PM Referred By: REFERRED SELF Confirmed By:Ryder Linares
== END 2024-03-16 13:00 | disposition home or self-care (01) | DRG 871 ==
LOC: ED 17:37 → EDINP 23:39 → 2W 03-15 01:40